=== PATIENT | female | born 1990 | race African-American/Black ===

== ENCOUNTER 2018-06-05 18:14 | Emergency (ER) | payer OTHER, SELFPAY ==
[2018-06-05] MEDS ORDERED: ONDANSETRON 4 MG (ODT) TAB ONE (19:00)
[2018-06-05 19:15] LABS: Absolute Lymphocytes (CBC) 2.7 K/uL (0.7-4.9); Absolute Monocytes 0.8 K/uL (0.1-1.3); Absolute Neutrophil 4.6 K/uL (1.8-8.0); Basophils % 0.8 % (0-1.3); Eosinophils % 2.3 % (0-4.4); Hematocrit 38.2 % (36.0-45.0); Lymphocytes % 32.7 % (15.3-44.8); MCH 20.5 pg (27.0-35.0); MCV 67.1 fL (80-100); MPV 8.6 fL (7.6-11.3); Monocytes % 9.5 % (3.3-12.3); RBC Red Blood Cell Count 5.69 M/uL (3.86-4.86)
[2018-06-05 19:23] LABS: ALT/SGPT 25 U/L (12-78); AST/SGOT 22 U/L (15-37); Albumin 3.2 g/dL (3.4-5.0); Alkaline Phosphatase 76 U/L (45-117); BUN Blood Urea Nitrogen 16 mg/dL (7-18); Bicarbonate 30 mmol/L (21-32); Bilirubin Direct 0.1 mg/dL (0-0.2); Bilirubin Total 0.3 mg/dL (0.2-1.0); Glucose Level 106 mg/dL (74-106); Lipase 97 U/L (73-393); Potassium 3.6 mmol/L (3.5-5.1); Protein, Total 7.5 g/dL (6.4-8.2); Sodium Level 142 mmol/L (136-145)
--- NOTE | 2018-06-05 20:01 | ER ---
Nurse's Notes [facility] Name: Rachel Mares Age: 28 yrs Sex: Female : 1990 Arrival Date: 06/05/2018 Time: 18:16 Bed 15 Private MD: None, None Diagnosis: Vomiting Presentation: 06/05 18:21 Presenting complaint: Patient states: "I think I'm dehydrated. I was throwing up all aj1 day since yesterday. I'm drinking lots of water but I feel like I'm not drinking enough water. My body is really sluggish." Report N/V, abdominal cramping. Denies diarrhea, fever. Transition of care: patient was not received from another setting of care. Onset of symptoms was June 04, 2018. Risk Assessment: Do you want to hurt yourself or someone else? Patient reports no desire to harm self or others. Initial Sepsis Screen: Does the patient meet any 2 criteria? No. Patient's initial sepsis screen is negative. Does the patient have a suspected source of infection? No. Patient's initial sepsis screen is negative. Care prior to arrival: None. 18:21 Method Of Arrival: Ambulatory aj1 18:21 Acuity: VIPIN 3 aj1 Triage Assessment: 18:24 General: Appears in no apparent distress. uncomfortable, Behavior is calm, cooperative, aj1 appropriate for age. Pain: Complains of pain in right lower quadrant and left lower quadrant Pain currently is 8 out of 10 on a pain scale. Quality of pain is described as crampy. Neuro: Level of Consciousness is awake, alert, obeys commands. Cardiovascular: Patient's skin is warm and dry. Respiratory: Airway is patent Respiratory effort is even, unlabored, Respiratory pattern is regular, symmetrical. GI: Reports nausea, vomiting. 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 - Social history:: Smoking status: Patient/guardian denies using tobacco. - Ebola Screening: : Patient denies travel to an Ebola-affected area in the 21 days before illness onset. Screenin:30 Abuse screen: Denies threats or abuse. Nutritional screening: vomiting since yesterday. rb1 Tuberculosis screening: No symptoms or risk factors identified. Fall Risk None identified. Assessment: 18:30 General: Appears in no apparent distress. comfortable, obese, Behavior is calm, rb1 cooperative, Denies fever, chills. Pain: Complains of pain in left lower quadrant and right lower quadrant Pain currently is 7 out of 10 on a pain scale. Quality of pain is described as crampy, Pain began 1 day ago. Discomfort is after the pt. vomits. Neuro: Level of Consciousness is awake, alert, obeys commands, Oriented to person, place, time, situation. Cardiovascular: Capillary refill < 3 seconds is brisk in bilateral fingers. Respiratory: Airway is patent Respiratory effort is even, unlabored, Respiratory pattern is regular, symmetrical. GI: Reports nausea, vomiting. : No signs and/or symptoms were reported regarding the genitourinary system. Derm: Skin is dry, Skin is normal, Skin temperature is warm. 19:00 Reassessment: Pt. labs were drawn and sent but the IV went bad while flushing it. rb1 Notified JAVIER Ventura and he stated, "We can wait for the lab results to come back before sticking the pt. again.". 19:04 Reassessment: Patient appears in no apparent distress at this time. No changes from lp1 previously documented assessment. Patient holding child;. 19:30 Reassessment: Patient aware of need for urine sample; States "I don't have to go, lp1 there's nothing in there"; Nausea relieved at this time; Patient tolerating water. Vital Signs: 18:24 BP 147 / 104; Pulse 106; Resp 22; Temp 97.6(TE); Pulse Ox 98% on R/A; Weight 145.15 kg aj1 (R); Height 5 ft. 2 in. (157.48 cm) (R); Pain 8/10; 19:52 BP 140 / 94; Pulse 92; Resp 18; Pulse Ox 100% on R/A; lp1 18:24 Body Mass Index 58.53 (145.15 kg, 157.48 cm) aj1 ED Course: 17:03 Report given to LOR Yun. rb1 18:16 Patient arrived in ED. sb2 18:17 None, None is Private Physician. sb2 18:24 Triage completed. aj1 18:24 Arm band placed on Patient placed in an exam room. aj1 18:27 Ariel Ventura NP is PHCP. pm1 18:27 Rocky Calle MD is Attending Physician. pm1 18:27 PHCP role handed off by Ariel Ventura NP cp 18:27 Norman Tatum PA is PHCP. cp 18:27 PHCP role handed off by Norman Tatum PA pm1 18:27 Ariel Ventura NP is PHCP. pm1 18:30 Patient has correct armband on for positive identification. Bed in low position. Call rb1 light in reach. Side rails up X 1. Pulse ox on. NIBP on. 18:53 Missed attempt(s): 22 gauge in right antecubital area. Bleeding controlled, band aid ss applied, catheter tip intact. 19:04 Court Mixon, RN is Primary Nurse. lp1 19:54 No provider procedures requiring assistance completed. Assist provider with bone marrow lp1 aspiration. 20:12 Patient did not have IV access during this emergency room visit. lp1 Administered Medications: 19:00 Drug: Zofran 4 mg Route: PO; rb1 20:11 Follow up: Response: Nausea is decreased lp1 19:02 Not Given (Provider changed order): Zofran 4 mg IVP once; over 2 minutes rb1 20:11 Not Given (No IV): NS 0.9% 1000 ml IV at 1000 ml once lp1 Outcome: 20:00 Discharge ordered by . pm1 20:12 Discharged to home ambulatory. lp1 20:12 Condition: good 20:12 Discharge instructions given to patient, Instructed on discharge instructions, follow up and referral plans. medication usage, Demonstrated understanding of instructions, follow-up care, medications, Prescriptions given X 2. 20:13 Patient left the ED. lp1 Signatures: Shaista Guevara RN RN aj1 Zo Ramos RN RN ss Court Mixon RN RN lp1 Norman Tatum PA PA cp Barber, Rebecca, RN RN rb1 Ariel Ventura, JAVIER BUSINESS CONTINUITY PLANNING DIRECTOR pm1 Montserrat Díaz sb2 Corrections: (The following items were deleted from the chart) 19:52 19:30 Reassessment: Patient aware of need for urine sample; States "I don't have to go, lp1 there's nothing in there" lp1
--- NOTE | 2018-06-05 20:01 | EDPHYS ---
Physician Documentation [facility] Name: Rachel Mares Age: 28 yrs Sex: Female : 1990 Arrival Date: 06/05/2018 Time: 18:16 Bed 15 Private MD: None, None ED Physician Rocky Calle HPI: 06/05 19:00 This 28 yrs old Black Female presents to ER via Ambulatory with complaints of pm1 Dehydration. 19:00 The patient presents to the emergency department with nausea, vomiting. Onset: The pm1 symptoms/episode began/occurred this morning. Possible causes: unknown. The symptoms are aggravated by nothing. The symptoms are alleviated by nothing. Associated signs and symptoms: Pertinent positives: Not certain if she has had diarrhea today, but had bowel movements x 2 today. Patient reports abdominal cramping present only when she is vomiting, other tripathi no abdominal pain is present, Pertinent negatives: dysuria, fever. Severity of symptoms: Pain is currently a 0 / 10. The patient has not recently seen a physician. 19:00 Patient feels like she is dehydrated because she has been having vomiting all day that pm1 started this AM. Patient uncertain if she has had diarrhea but has had two bowel movements today. No abdominal pain present. Abdominal cramping is only present when she is actively vomiting. No fevers. 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 - Social history:: Smoking status: Patient/guardian denies using tobacco. - Ebola Screening: : Patient denies travel to an Ebola-affected area in the 21 days before illness onset. ROS: 19:00 Constitutional: Negative for fever, chills, and weight loss, Eyes: Negative for injury, pm1 pain, redness, and discharge, ENT: Negative for injury, pain, and discharge, Neck: Negative for injury, pain, and swelling, Cardiovascular: Negative for chest pain, palpitations, and edema, Respiratory: Negative for shortness of breath, cough, wheezing, and pleuritic chest pain. 19:00 Back: Negative for injury and pain, : Negative for injury, bleeding, discharge, and swelling, MS/Extremity: Negative for injury and deformity, Skin: Negative for injury, rash, and discoloration, Neuro: Negative for headache, weakness, numbness, tingling, and seizure. 19:00 Abdomen/GI: Positive for nausea, vomiting, Abdominal cramps when she is vomiting, Negative for diarrhea, hematemesis, rectal bleeding. Exam: 19:00 Constitutional: This is a well developed, well nourished patient who is awake, alert, pm1 and in no acute distress. Head/Face: Normocephalic, atraumatic. Eyes: Pupils equal round and reactive to light, extra-ocular motions intact. Lids and lashes normal. Conjunctiva and sclera are non-icteric and not injected. Cornea within normal limits. Periorbital areas with no swelling, redness, or edema. ENT: Nares patent. No nasal discharge, no septal abnormalities noted. Tympanic membranes are normal and external auditory canals are clear. Oropharynx with no redness, swelling, or masses, exudates, or evidence of obstruction, uvula midline. Mucous membranes moist. Neck: Trachea midline, no thyromegaly or masses palpated, and no cervical lymphadenopathy. Supple, full range of motion without nuchal rigidity, or vertebral point tenderness. No Meningismus. Chest/axilla: Normal chest wall appearance and motion. Nontender with no deformity. No lesions are appreciated. Cardiovascular: Regular rate and rhythm with a normal S1 and S2. No gallops, murmurs, or rubs. Normal PMI, no JVD. No pulse deficits. Respiratory: Lungs have equal breath sounds bilaterally, clear to auscultation and percussion. No rales, rhonchi or wheezes noted. No increased work of breathing, no retractions or nasal flaring. 19:00 Back: No spinal tenderness. No costovertebral tenderness. Full range of motion. Skin: Warm, dry with normal turgor. Normal color with no rashes, no lesions, and no evidence of cellulitis. MS/ Extremity: Pulses equal, no cyanosis. Neurovascular intact. Full, normal range of motion. 19:00 Abdomen/GI: Inspection: abdomen appears normal, obese Bowel sounds: normal, Palpation: abdomen is soft and non-tender, in all quadrants, mass, is not appreciated, rebound tenderness, is not appreciated. 19:00 Neuro: Orientation: is normal, Motor: is normal, moves all fours, Gait: is steady, at a normal pace, without difficulty. Vital Signs: 18:24 BP 147 / 104; Pulse 106; Resp 22; Temp 97.6(TE); Pulse Ox 98% on R/A; Weight 145.15 kg aj1 (R); Height 5 ft. 2 in. (157.48 cm) (R); Pain 8/10; 19:52 BP 140 / 94; Pulse 92; Resp 18; Pulse Ox 100% on R/A; lp1 18:24 Body Mass Index 58.53 (145.15 kg, 157.48 cm) aj1 MDM: 18:27 Patient medically screened. pm1 19:59 Data reviewed: vital signs. Data interpreted: Pulse oximetry: on room air is 100 %. pm1 Interpretation: normal. Counseling: I had a detailed discussion with the patient and/or guardian regarding: the historical points, exam findings, and any diagnostic results supporting the discharge/admit diagnosis, lab results, the need for outpatient follow up, to return to the emergency department if symptoms worsen or persist or if there are any questions or concerns that arise at home. 19:59 Differential diagnosis: gastritis, cholecystitis, pancreatitis, appendicitis, pm1 diverticulitis, viral gastroenteritis. 20:15 ED course: Patient's labs WNL. Patient pain free throughout ER visit. Patient's nausea pm1 resolved with Zofran and was able to tolerate multiple cups of water without any vomiting. Patient discharged to follow up with PCP with impression of viral gastroenteritis . 06/05 18:34 Order name: Basic Metabolic Panel; Complete Time: 19:31 pm06/05 18:34 Order name: CBC with Diff; Complete Time: 19:42 pm06/05 18:34 Order name: Hepatic Function; Complete Time: 19:31 pm06/05 18:34 Order name: Lipase; Complete Time: 19:31 pm06/05 20:01 Order name: Urine Dipstick--Ancillary (enter results); Complete Time: 20:18 eb 06/05 18:34 Order name: Urine Test (obtain specimen); Complete Time: 20:11 pm06/05 18:34 Order name: Labs collected and sent; Complete Time: 18:54 pm1 06/05 18:34 Order name: Urine Dipstick-Ancillary (obtain specimen); Complete Time: 20:11 pm1 06/05 20:01 Order name: Urine --Ancillary (enter results); Complete Time: 20:18 eb Administered Medications: 19:00 Drug: Zofran 4 mg Route: PO; rb1 20:11 Follow up: Response: Nausea is decreased lp1 19:02 Not Given (Provider changed order): Zofran 4 mg IVP once; over 2 minutes rb1 20:11 Not Given (No IV): NS 0.9% 1000 ml IV at 1000 ml once lp1 Disposition: 06/05/18 20:00 Discharged to Home. Impression: Vomiting. - Condition is Stable. - Discharge Instructions: Nausea and Vomiting, Viral Gastroenteritis. - Prescriptions for Zofran 4 mg Oral Tablet - take 1 tablet by ORAL route every 12 hours As needed; 20 tablet. Bentyl 20 mg Oral Tablet - take 1 tablet by ORAL route every 6 hours As needed; 20 tablet. - Work release form, Medication Reconciliation Form, Thank You Letter form. - Follow up: Emergency Department; When: As needed; Reason: Worsening of condition. Follow up: Private Physician; When: 2 - 3 days; Reason: Recheck today's complaints, Continuance of care, Re-evaluation by your physician. - Problem is new. - Symptoms have improved. Addendum: 06/06/2018 20:25 Co-signature as Attending Physician, Rocky Calle MD. m a2 Signatures: Dispatcher [employer] [facility] Shaista Guevara RN RN aj1 Court Mixon RN RN lp1 Martha Milner, RN RN rb1 Ariel Ventura, TRAVELING AUDITOR TRAVELING AUDITOR pm1 Rocky Calle MD MD ma2 Corrections: (The following items were deleted from the chart) 06/05 20:01 18:34 UA MICROSCOPIC+U.LAB.BRZ ordered. EDOH EDOH 20:11 18:34 IV Saline Lock ordered. pm1 lp1 20:13 20:00 06/05/2018 20:00 Discharged to Home. Impression: Vomiting. Condition is Stable. lp1 Forms are Medication Reconciliation Form, Thank You Letter, Antibiotic Education, Prescription Opioid Use. Follow up: Emergency Department; When: As needed; Reason: Worsening of condition. Follow up: Private Physician; When: 2 - 3 days; Reason: Recheck today's complaints, Continuance of care, Re-evaluation by your physician. Problem is new. Symptoms have improved. pm1
[2018-06-05 20:08] LABS: Urine Blood 2+ (NEG); Urine Glucose NEGATIVE (NEG); Urine Protein 2+ (NEG); Urine Specific Gravity 1.025 (1.005-1.030); Urine pH 6.5 (5.0-7.0)
[2018-06-05 20:16] VITALS: TEMP 97.6
[2018-06-05 20:18] VITALS: BP 140/94; O2SAT 100
== END 2018-06-05 20:13 | disposition home or self-care (01) ==
LOC: ER 18:14
DX: R11.10 Vomiting, unspecified (principal)
CPT/HCPCS: 36415; 80048; 80076; 81003; 81025; 83690; 85025; 99284

== ENCOUNTER 2019-02-20 06:21 | Emergency (ER) | payer SELFPAY ==
--- OUTSIDE RECORDS SUMMARY | 2019-02-20 06:24 | XMS REPORT | Continuity of Care Document ---
:1990 Author Organization Interface Problems Problem Status Onset Classification Date Comments Source Date Reported Discharge 02/04/2017 [facility] Diagnosis: BV 7 ABDOMINAL PAIN Active [facility] - 7 [place] Discharge 01/19/2017 [facility] Diagnosis: 7 Accidental fall Discharge 01/19/2017 [facility] Diagnosis: 7 Abdominal pain during in first trimester 8 WKS Active [facility] PREG/FALL 7 Discharge 12/20/2016 [facility] Diagnosis: 7 Abdominal pain affecting Discharge 12/20/2016 [facility] Diagnosis: 7 Acute UTI PELVIC PAIN Active [facility] 7 [place] Medications Medication Details Route Status Patient Ordering Order Source Instructions Provider Date Tylenol 650 mg, Route: Inactive PO, Drug form: 2016 [place] TAB, ONCE, Dosing Weight 131.364, kg, Priority: STAT, Start date: 02/01/17 23:06:00 CDT, Stop date: 02/01/17 23:06:00 CDT Metronidazole 500 mg=1 tab, Active 500 MG Oral PO, BID, X 7 2016 [place] Tablet [Flagyl] day, # 14 tab, 0 Refill(s) Acetaminophen 650 mg, 2 tab, Inactive Route: PO, 2016 [place] Drug form: TAB, ONCE, Dosing Weight 127.273, kg, Priority: STAT, Start date: 02/01/17 17:18:00 CDT, Stop date: 02/01/17 17:18:00 CDTNotes: Do not exceed 4 gm/day. (Same as: Tylenol) Saline Flush 10 mL, Route: No Longer 0.9% IVP, Drug Active 2016 [place] Form: INJ, Dosing Weight 127.273, kg, PRN, PRN Line Flush, Start date: 02/01/17 17:18:00 CDT, Duration: 30 day, Stop date: 03/03/17 17:17:00 CDTNotes: (Same as: BD Posiflush) Saline Flush 10 mL, Route: Inactive 0.9% IVP, Drug 2016 [place] Form: INJ, Dosing Weight 127.273, kg, PRN, PRN Line Flush, Start date: 01/16/17 10:51:00 HOLE PUNCHER STRAP, Duration: 30 day, Stop date: 02/15/17 11:50:00 CDTNotes: preservative free. Cephalexin 500 500 mg=1 cap, Active MH MG Oral Capsule PO, BID, X 7 2016 [place] [Keflex] , # 14 cap, 0 Refill(s) Sodium Chloride 1,000 mL, Inactive 0.154 MEQ/ML 1,000 ml/hr, 2016 [place] Injectable Infuse Over: 1 Solution hr, Route: IV, 1,000, Drug form: INJ, ONCE, Priority: STAT, Dosing Weight 136.364 kg, Start date: 12/17/16 4:37:00 HOLE PUNCHER STRAP, Duration: 1 doses or times, Stop date: 12/17/16 4:37:00 HOLE PUNCHER STRAP Sodium Chloride 1,000 mL, Inactive 0.154 MEQ/ML 1,000 ml/hr, 2016 [place] Injectable Infuse Over: 1 Solution hr, Route: IV, 1,000, Drug form: INJ, ONCE, Priority: STAT, Dosing Weight 136.364 kg, Start date: 12/17/16 2:27:00 HOLE PUNCHER STRAP, Duration: 1 doses or times, Stop date: 12/17/16 2:27:00 HOLE PUNCHER STRAP Allergies, Adverse Reactions, Alerts Substance Category Reaction Severity Reaction Status Date Comments Source type Reported Immunizations Immunization Date Given Site Status Last Updated Comments Source Results Order Name Results Value Reference Date Interpretation Comments Source Range MOLECULAR N gonorrhea Negative Negative 02/02 DIAGNOSTIC by Amp Det /2016 [place] (APTIMA) *NA* (02/01/17 9:57 PM) MOLECULAR Source Endocervix 02/02 DIAGNOSTIC [place]TIMA /2016 [place] *NA* (02/01/17 9:57 PM) MOLECULAR C Negative Negative 02/02 DIAGNOSTIC trachomatis [place] by [facility]mp Det *NA* (APTIMA) (02/01/17 9:57 PM) [place] [address] 02/02 OGY mIU/mL [place] URINE AND UA Blood Negative Negative 02/02 STOOL [place] (02/01/17 8:01 PM) URINE AND UA Ketones Negative Negative 02/02 [place] *NA* (02/01/17 8:01 PM) URINE AND UA Bili Negative Negative 02/02 STOOL [place] *NA* (02/01/17 8:01 PM) URINE AND UA 0.2 EU/dL 0.1 - 1.0 02/02 STOOL Urobilinogen [place] URINE AND UA Nitrite Negative Negative 02/02 STOOL [place] (02/01/17 8:01 PM) URINE AND UA Sq Epi Few /LPF Few /LPF 02/02 [place] URINE AND UA Leuk Est Negative Negative 02/02 STOOL [place] (02/01/17 8:01 PM) URINE AND UA Bacteria Few /HPF None Seen 02/02 STOOL /HPF [place] URINE AND UA RBC 0-2 /HPF 0 - 2 02/02 [place] URINE AND UA Glucose Negative Negative 02/02 STOOL [place] (02/01/17 8:01 PM) URINE AND UA Protein Negative Negative 02/02 STOOL [place] (02/01/17 8:01 PM) URINE AND UA pH 6.0 5.0 - 8.0 02/02 [place] URINE AND UA Spec Grav >=1.030 <=1.030 02/02 [place] *ABN* (02/01/17 8:01 PM) URINE AND UA Turbidity Clear Clear 02/02 [place] (02/01/17 8:01 PM) URINE AND UA Color Yellow Yellow 02/02 STOOL [place] *NA* (02/01/17 8:01 PM) URINE AND UA WBC 0-2 /HPF None Seen 02/02 STOOL /HPF [place] CHEM PANEL eGFR 139 02/01 Result Comment: The eGFR is calculated using the CKD-EPI formula. In most young, healthy individuals the eGFR will be >90 mL/ min/1.73m2. The eGFR declines with age. An eGFR of 60-89 may be normal in mL/min/1.7 /2016 some populations, particularly the elderly, for whom the CKD-EPI formula has not been extensively validated. Use of the eGFR is not recommended in the following populations: [place] 3m2 Individuals with unstable creatinine concentrations, including patients and those with serious co-morbid conditions. Patients with extremes in muscle mass or diet. The data above are obtained from the National Kidney Disease Education Program (NKDEP) which additionally recommends that when the eGFR is used in patients with extremes of body mass index for purposes of drug dosing, the eGFR should be multiplied by the estimated BMI. CHEM PANEL Glucose Lvl 107 mg/dL 70 - 99 02/01 [place] CHEM PANEL Sodium Lvl 138 meq/L 135 - 145 02/01 [place] CHEM PANEL BUN 16 mg/dL 7 - 22 02/01 [place] CHEM PANEL Creatinine 0.70 mg/dL 0.50 - 02/01 MH Lvl 1.40 [place] CHEM PANEL Calcium Lvl 7.9 mg/dL 8.5 - 10.5 02/01 [place] CHEM PANEL Chloride Lvl 106 meq/L 95 - 109 02/01 [place] CHEM PANEL CO2 22 meq/L 24 - 32 02/01 [place] CHEM PANEL Potassium 4.3 meq/L 3.5 - 5.1 02/01 Lvl [place] CHEM PANEL AGAP 14.3 meq/L 10.0 - 02/01 MH 20.0 [place] BLOOD BANK ABO/Rh A POS 02/01 RESULTS [place] HEMATOLOGY Monocytes # 0.8 K/CMM 0.0 - 0.8 02/01 [place] HEMATOLOGY Lymphocytes 3.5 K/CMM 1.0 - 5.5 02/01 # [place] HEMATOLOGY Eosinophils 0.1 K/CMM 0.0 - 0.5 02/01 # [place] HEMATOLOGY Basophils # 0.1 K/CMM 0.0 - 0.2 02/01 [place] HEMATOLOGY Microcyte 3+ None Seen 02/01 [place] *NA* (02/01/17 6:02 PM) HEMATOLOGY Anisocyte 1+ None Seen 02/01 [place] *ABN* (02/01/17 6:02 PM) HEMATOLOGY Plt Morph Normal 02/01 [place] (02/01/17 6:02 PM) HEMATOLOGY Segs 62.3 % 45.0 - 02/01 MH 75.0 [place] HEMATOLOGY Eosinophils 1.1 % 0.0 - 4.0 02/01 [place] HEMATOLOGY Basophils 0.5 % 0.0 - 1.0 02/01 [place] HEMATOLOGY Monocytes 6.9 % 2.0 - 12.0 02/01 [place] HEMATOLOGY Lymphocytes 29.2 % 20.0 - 02/01 MH 40.0 [place] HEMATOLOGY Segs-Bands # 7.5 K/CMM 1.5 - 8.1 02/01 [place] HEMATOLOGY Platelet 297 K/CMM 133 - 450 02/01 [place] HEMATOLOGY RDW 15.7 % 11.5 - 02/01 MH 14.5 [place] HEMATOLOGY MCHC 31.4 g/dL 32.0 - 02/01 MH 36.0 [place] HEMATOLOGY MCV 65.4 fL 80.0 - 02/01 MH 98.0 [place] HEMATOLOGY MCH 20.5 pg 27.0 - 02/01 MH 31.0 [place] HEMATOLOGY Hct 38.7 % 36.0 - 02/01 MH 48.0 [place] HEMATOLOGY Hgb 12.1 g/dL 12.0 - 02/01 MH 16.0 [place] HEMATOLOGY WBC X 10x3 12.0 K/CMM 3.7 - 10.4 02/01 [place] HEMATOLOGY RBC X 10x6 5.91 M/CMM 4.20 - 02/01 MH 5.40 [place] HEMATOLOGY MPV 8.0 fL 7.4 - 10.4 02/01 [place] < Study: Pelvic ultrasound 02/01 [facility] < 14 weeks 14 weeks /2016 - [place] single single gestation gestation US US History: Cramping Read by: Vanesa Mary MD Dictated Date/time: 02/01/17 19:27 Electronically Signed by: Vanesa Mary MD 02/01/17 19:42 FINAL REPORT Comments: Transabdominal OB ultrasound was obtained utilizing real-time grayscale and color Doppler images. [<Transvaginal OB ultrasound was also performed for better visualization of anatomy.>] Uterus: A single intrauterine gestational sac is seen. pole and yolk sac are seen. heartrate is 185 bpm crown-rump length is 5 mm Right ovary: Not visualized due to overlying bowel gas Left ovary: Normal in size and appearance measuring 3.8 x 2.6 x 2.4 cm. IMPRESSION: Single live IUP with sonographic age of 12 weeks 0 days BLOOD BANK ABO/Rh A POS 01/16 RESULTS [facility] ENDOCRINOL S Preg Positive Negative 01/16 OGY /2016 [facility] *NA* (01/16/17 11:02 AM) [place] 63371 01/16 OGY mIU/mL /2016 [facility] MPV 7.8 fL 7.4 - 10.4 01/16 [facility] Hgb 11.9 g/dL 12.0 - 01/16 16.0 [facility] Hct 38.2 % 36.0 - 01/16 48.0 [facility] MCHC 31.1 g/dL 32.0 - 01/16 36.0 [facility] HEMATOLOGY RBC 5.86 M/CMM 4.20 - 01/16 MH 5.40 /2016 [facility] HEMATOLOGY WBC 13.9 K/CMM 3.7 - 10.4 01/16 /2016 [facility] HEMATOLOGY MCV 65.2 fL 80.0 - 01/16 98.0 /2016 [facility] HEMATOLOGY MCH 20.3 pg 27.0 - 01/16 31.0 [facility] Platelet 282 K/CMM 133 - 450 01/16 /2016 [facility] RDW 16.3 % 11.5 - 01/16 14.5 /2016 [facility] HEMATOLOGY Segs 67.8 % 45.0 - 01/16 75.0 /2016 [facility] Lymphocytes 23.8 % 20.0 - 01/16 40.0 /2016 [facility] HEMATOLOGY Monocytes # 1.0 K/CMM 0.0 - 0.8 01/16 [facility] HEMATOLOGY Eosinophils 0.4 % 0.0 - 4.0 01/16 [facility] HEMATOLOGY Monocytes 7.5 % 2.0 - 12.0 01/16 [facility] Segs-Bands # 9.5 K/CMM 1.5 - 8.1 01/16 [facility] Lymphocytes 3.3 K/CMM 1.0 - 5.5 01/16 MH # /2016 [place] HEMATOLOGY Basophils 0.5 % 0.0 - 1.0 01/16 [facility] HEMATOLOGY Eosinophils 0.1 K/CMM 0.0 - 0.5 01/16 # /2016 [facility] HEMATOLOGY Basophils # 0.1 K/CMM 0.0 - 0.2 01/16 [facility] HEMATOLOGY Microcyte 3+ None Seen 01/16 [facility] *NA* (01/16/17 11:02 AM) URINE AND UA Nitrite Negative Negative 01/16 (01/16/17 11:02 AM) URINE AND UA Bili Negative Negative 01/16 [facility] *NA* (01/16/17 11:02 AM) URINE AND UA Leuk Est Negative Negative 01/16 (01/16/17 11:02 AM) URINE AND UA Blood Negative Negative 01/16 [facility] (01/16/17 11:02 AM) URINE AND UA Sq Epi Occasional Few /LPF 01/16 STOOL /LPF [facility] URINE AND UA Color Colorless 01/16 [facility] URINE AND UA <=1.0 0.1 - 1.0 01/16 STOOL Urobilinogen mg/dL [facility] URINE AND UA Spec Grav 1.001 <=1.030 01/16 [facility] URINE AND UA Turbidity Clear Clear 01/16 [facility] (01/16/17 11:02 AM) URINE AND UA pH 6.0 5.0 - 8.0 01/16 [facility] URINE AND UA Glucose Negative Negative 01/16 STOOL mg/dL mg/dL [facility] URINE AND UA Protein Negative Negative 01/16 STOOL mg/dL mg/dL [facility] URINE AND UA Ketones Negative Negative 01/16 STOOL mg/dL mg/dL [facility] Preg < Preg < 14wks EXAM: Ultrasound pelvis less than 14 weeks with Doppler 01/16 - 14wks sing sing gest w - gest w transvag/Dop HISTORY: , abdominal trauma, fall transvag/D US op US COMPARISON: None Read by: Eyal Pineda MD Dictated Date/time: 01/16/17 11:59 TECHNIQUE: Transabdominal and transvaginal pelvic ultrasound, grayscale static images with duplex Doppler of the ovaries. Electronically Signed by: Eyal Pineda MD 01/16/17 12:04 FINAL REPORT FINDINGS: Transabdominal ultrasound: Uterus: Measures 11.5 cm length. Intrauterine . Ovaries not visualized. Bladder underdistended. Transvaginal ultrasound exam performed to better evaluate the endometrium and adnexa: Uterus: Intrauterine gestational sac, yolk sac and pole are seen with gestational age 10 weeks 0 days by crown-rump length. Heart rate 183 bpm. Cervix: Measures 2.2 cm length. Adnexa: Corpus luteum in the left ovary. Right ovary is unremarkable. No significant free fluid. Color and spectral flow in both ovaries. IMPRESSION: Single viable intrauterine with gestational age 10 weeks 0 days. SL: [id number] MOLECULAR Source Vaginal 12/17 DIAGNOSTIC [place] *NA* (12/17/16 3:12 AM) MOLECULAR C Negative Negative 12/17 DIAGNOSTIC trachomatis [place] by Amp Det *NA* (APTIMA) (12/17/16 3:12 AM) MOLECULAR N gonorrhea Negative Negative 12/17 DIAGNOSTIC by Amp Det /2016 [place] ([facility]TIMA) *NA* (12/17/16 3:12 AM) BLOOD BANK ABO/Rh A POS 12/17 RESULTS [place] CHEM PANEL eGFR 106 12/17 Result Comment: The eGFR is calculated using the CKD-EPI formula. In most young, healthy individuals the eGFR will be >90 mL/ min/1.73m2. The eGFR declines with age. An eGFR of 60-89 may be normal in mL/min/1.7 some populations, particularly the elderly, for whom the CKD-EPI formula has not been extensively validated. Use of the eGFR is not recommended in the following populations: [place] 3m2 Individuals with unstable creatinine concentrations, including patients and those with serious co-morbid conditions. Patients with extremes in muscle mass or diet. The data above are obtained from the National Kidney Disease Education Program (NKDEP) which additionally recommends that when the eGFR is used in patients with extremes of body mass index for purposes of drug dosing, the eGFR should be multiplied by the estimated BMI. CHEM PANEL ASPARTATE 14 unit/L 0 - 37 12/17 TRANSAMINASE [place] CHEM PANEL Total 7.3 g/dL 6.4 - 8.4 12/17 Protein [place] CHEM PANEL Calcium Lvl 8.4 mg/dL 8.5 - 10.5 12/17 [place] CHEM PANEL CO2 29 meq/L 24 - 32 12/17 [place] CHEM PANEL Chloride Lvl 105 meq/L 95 - 109 12/17 [place] CHEM PANEL Alk Phos 60 unit/L 39 - 136 12/17 [place] CHEM PANEL ALANINE 20 unit/L 0 - 65 12/17 AMINOTRANS [place] RASE CHEM PANEL Albumin Lvl 3.1 g/dL 3.5 - 5.0 12/17 [place] CHEM PANEL Creatinine 0.87 mg/dL 0.50 - 12/17 MH Lvl 1.40 [place] CHEM PANEL BUN 17 mg/dL 7 - 22 12/17 [place] CHEM PANEL Glucose Lvl 95 mg/dL 70 - 99 12/17 [place] CHEM PANEL Bili Total 0.2 mg/dL 0.2 - 1.3 12/17 [place] CHEM PANEL Potassium 3.8 meq/L 3.5 - 5.1 12/17 MH Lvl [place] CHEM PANEL Sodium Lvl 142 meq/L 135 - 145 12/17 [place] CHEM PANEL A/G Ratio 0.7 0.7 - 1.6 12/17 [place] CHEM PANEL B/C Ratio 20 6 - 25 12/17 [place] CHEM PANEL AGAP 11.8 meq/L 10.0 - 12/17 MH 20.0 [place] CHEM PANEL Globulin 4.2 g/dL 2.7 - 4.2 12/17 [place] ENDOCRINOL hCG Tot 3316 12/17 OGY mIU/mL [place] HEMATOLOGY Target Cell few 12/17 [place] HEMATOLOGY Hyperseg few 12/17 [place] HEMATOLOGY Polychrom rare 12/17 [place] HEMATOLOGY Stomatocyte few 12/17 [place] HEMATOLOGY Eosinophils 0.9 % 0.0 - 4.0 12/17 [place] HEMATOLOGY Basophils 0.6 % 0.0 - 1.0 12/17 [place] HEMATOLOGY Segs-Bands # 6.8 K/CMM 1.5 - 8.1 12/17 [place] HEMATOLOGY Lymphocytes 34.8 % 20.0 - 12/17 MH 40.0 [place] HEMATOLOGY Monocytes 8.2 % 2.0 - 12.0 12/17 [place] HEMATOLOGY Eosinophils 0.1 K/CMM 0.0 - 0.5 12/17 # /2016 [place] HEMATOLOGY Basophils # 0.1 K/CMM 0.0 - 0.2 12/17 [place] HEMATOLOGY Microcyte 3+ None Seen 12/17 [place] *NA* (12/17/16 3:01 AM) HEMATOLOGY Lymphocytes 4.3 K/CMM 1.0 - 5.5 12/17 # /2016 [place] HEMATOLOGY Monocytes # 1.0 K/CMM 0.0 - 0.8 12/17 [place] HEMATOLOGY Segs 55.5 % 45.0 - 12/17 MH 75.0 [place] HEMATOLOGY MPV 8.2 fL 7.4 - 10.4 12/17 [place] HEMATOLOGY Platelet 267 K/CMM 133 - 450 12/17 [place] HEMATOLOGY Hgb 12.1 g/dL 12.0 - 12/17 MH 16.0 [place] HEMATOLOGY RBC X 10x6 5.95 M/CMM 4.20 - 12/17 MH 5.40 [place] HEMATOLOGY WBC X 10x3 12.2 K/CMM 3.7 - 10.4 12/17 [place] HEMATOLOGY RDW 16.2 % 11.5 - 12/17 MH 14.5 [place] HEMATOLOGY MCHC 30.9 g/dL 32.0 - 12/17 MH 36.0 [place] HEMATOLOGY MCH 20.3 pg 27.0 - 12/17 MH 31.0 [place] HEMATOLOGY MCV 65.8 fL 80.0 - 12/17 MH 98.0 [place] HEMATOLOGY Hct 39.1 % 36.0 - 12/17 MH 48.0 [place] URINE AND UA Mucus None Seen None Seen 12/17 STOOL [place] (12/17/16 3:01 AM) URINE AND UA Bacteria Occasional None Seen 12/17 STOOL /HPF /HPF /2016 [place] URINE AND UA Leuk Est Negative Negative 12/17 STOOL [place] (12/17/16 3:01 AM) URINE AND UA Sq Epi Occasional Few /LPF 12/17 STOOL /LPF /2016 [place] URINE AND UA Nitrite Negative Negative 12/17 [place] (12/17/16 3:01 AM) URINE AND UA WBC 0-2 /HPF None Seen 12/17 STOOL /HPF [place] URINE AND UA RBC 0-2 /HPF 0 - 2 12/17 [place] URINE AND UA Color Yellow Yellow 12/17 [place] *NA* (12/17/16 3:01 AM) URINE AND UA Turbidity Clear Clear 12/17 [place] (12/17/16 3:01 AM) URINE AND UA 0.2 EU/dL 0.1 - 1.0 12/17 [facility] Urobilinogen [place] URINE AND UA Blood Negative Negative 12/17 [place] (12/17/16 3:01 AM) URINE AND UA Bili Negative Negative 12/17 [place] *NA* (12/17/16 3:01 AM) URINE AND UA pH 6.0 5.0 - 8.0 12/17 [place] URINE AND UA Protein Negative Negative 12/17 [place] (12/17/16 3:01 AM) URINE AND UA Spec Grav >=1.030 <=1.030 12/17 [place] *ABN* (12/17/16 3:01 AM) URINE AND UA Ketones Trace Negative 12/17 [place] *ABN* (12/17/16 3:01 AM) URINE AND UA Glucose Negative Negative 12/17 [place] (12/17/16 3:01 AM) URINE CHEM U Preg Positive Negative 12/17 [place] *ABN* (12/17/16 3:01 AM) Preg < Preg < 14wks OBSTETRIC 1ST TRIMESTER ULTRASOUND 12/17 - [facility] 14wks Single gest /2016 - [place] Single w Transvag gest w US Transvag INDICATION: Pelvic pain Read by: Louis Currie MD [place] Dictated Date/time: 12/17/16 04:57 Electronically Signed by: Louis Currie MD 12/17/16 05:00 FINAL REPORT COMPARISON: None DISCUSSION: Current beta hCG level is approximately 3300. Transabdominal pelvic ultrasound: The uterus measures 7.8 x 5.5 x 5.9 cm. The cervix is closed. No fibroids are identified. Transvaginal pelvic ultrasound: A gestational sac is present within the endometrial cavity, with a mean sac diameter of 0.7 cm. There is no yolk sac or pole. The right ovary is normal in echogenicity and measures 3.2 x 1.4 x 2.2 cm. The left ovary measures 3.7 x 3.0 x 3.4 cm. There is a 2 cm simple corpus luteal cyst of the left ovary. Trace free fluid is noted in the cul-de-sac and left adnexal region. IMPRESSION: 1. Positive for single intrauterine , with estimated gestational age of 5 weeks 2 days. No yolk sac or pole are visible at this time. 2. A 2 cm simple left corpus luteal cyst. Trace pelvic free fluid suggests possible cyst rupture. SL:16 Vital Signs Vital Sign Value Date Comments Source Respitory Rate 18 02/02/2017 [facility] Heart Rate 95 02/02/2017 [facility] Systolic (mm Hg) 100 02/02/2017 [facility] Diastolic (mm Hg) 64 02/02/2017 [facility] Respitory Rate 18 02/02/2017 [facility] Heart Rate 88 02/02/2017 [facility] Systolic (mm Hg) 107 02/02/2017 [facility] Diastolic (mm Hg) 63 02/02/2017 [facility] Weight 131.364 02/01/2017 [facility] Respitory Rate 16 02/01/2017 [facility] Temperature Oral (F) 98.6 F 02/01/2017 [facility] Systolic (mm Hg) 115 02/01/2017 [facility] Diastolic (mm Hg) 74 02/01/2017 [facility] Heart Rate 128 02/01/2017 [facility] Respitory Rate 16 01/16/2017 [facility] Systolic (mm Hg) 120 01/16/2017 [facility] Diastolic (mm Hg) 86 01/16/2017 [facility] Temperature Oral (F) 97.6 F 01/16/2017 [facility] Heart Rate 91 01/16/2017 [facility] Respitory Rate 18 01/16/2017 [facility] Heart Rate 99 01/16/2017 [facility] Temperature Oral (F) 98.0 F 01/16/2017 [facility] Height 157.48 cm 01/16/2017 [facility] BMI Calculated 51.32 01/16/2017 [facility] Weight 127.273 01/16/2017 [facility] Systolic (mm Hg) 136 01/16/2017 [facility] Diastolic (mm Hg) 86 01/16/2017 [facility] Systolic (mm Hg) 112 12/17/2016 [facility] Diastolic (mm Hg) 68 12/17/2016 [facility] Respitory Rate 18 12/17/2016 [facility] Temperature Oral (F) 98.1 F 12/17/2016 [facility] Heart Rate 88 12/17/2016 [facility] Weight 136.364 12/17/2016 [facility] BMI Calculated 54.99 12/17/2016 [facility] Height 157.48 cm 12/17/2016 [facility] Temperature Oral (F) 98.2 F 12/17/2016 [facility] Systolic (mm Hg) 110 12/17/2016 [facility] Diastolic (mm Hg) 69 12/17/2016 [facility] Heart Rate 107 12/17/2016 [facility] Respitory Rate 20 12/17/2016 [facility] Encounters Location Location Encounter Encounter Reason Attending ADM DC Status Source Details Type Number For Provider Date Date [facility] [id number] [facility] Mcdonald 12/17 12/17 Rashaun /2016 [facility] Emergency [id number] [place] 01/16 01/16 Rashaun Leon /2016 [facility] Emergency [id number] [place] 02/01 02/02 Rashaun Fox /[address] [facility] Procedures Procedure Code Date Perfomer Comments Source
--- OUTSIDE RECORDS SUMMARY | 2019-02-20 06:24 | XMS REPORT | Summary of Care ---
:1990 Author Organization [facility] Address [id number] [place] [phone]- Encounter HQ Denisr_delicia(FIN) [id number] Date(s): 12/17/16 - 12/17/[address] [phone] Discharge Diagnosis: Abdominal pain affecting Discharge Diagnosis: Acute UTI Discharge Disposition: Home or Self Care Attending Physician: Campbell Mcdonald MD Vital Signs Most recent to oldest [Reference Range]: 1 2 Height 157.48 cm (12/17/16 12:21 AM) Temperature Oral [96.4-99.1 DegF] 98.1 DegF 98.2 DegF (12/17/16 5:46 AM) (12/17/16 12:21 AM) Blood Pressure [90-140/60-90 mmHg] 112/68 mmHg 110/69 mmHg (12/17/16 5:46 AM) (12/17/16 12:21 AM) Respiratory Rate [14-20 BRMIN] 18 BRMIN 20 BRMIN (12/17/16 5:46 AM) (12/17/16 12:21 AM) Peripheral Pulse Rate [60-100 bpm] 88 bpm 107 bpm (12/17/16 5:46 AM) *HI* (12/17/16 12:21 AM) Weight 136.364 kg (12/17/16 12:21 AM) Body Mass Index 54.99 m2 (12/17/16 12:21 AM) Problem List No data available for this section Allergies, Adverse Reactions, Alerts Substance Reaction Severity Status NKDA Active Medications Keflex 500 mg oral capsule 500 mg=1 cap, PO, BID, X 7 day, # 14 cap, 0 Refill(s) Start Date: 12/17/16 Stop Date: 12/24/16 Status: OrderedNS (Bolus) IV 1,000 mL, 1,000 ml/hr, Infuse Over: 1 hr, Route: IV, 1,000, Drug form: INJ, ONCE , Priority: STAT, Dosing Weight 136.364 kg, Start date: 12/17/16 2:27:00 SOIL CHEMIST, Duration: 1 doses or times, Stop date: 12/17/16 2:27:00 SOIL CHEMIST Start Date: 12/17/16 Stop Date: 12/17/16 Status: CompletedSodium Chloride 0.9% (Bolus) IV 1,000 mL, 1,000 ml/hr, Infuse Over: 1 hr, Route: IV, 1,000, Drug form: INJ, ONCE , Priority: STAT, Dosing Weight 136.364 kg, Start date: 12/17/16 4:37:00 SOIL CHEMIST, Duration: 1 doses or times, Stop date: 12/17/16 4:37:00 SOIL CHEMIST Start Date: 12/17/16 Stop Date: 12/17/16 Status: Completed Results BLOOD BANK RESULTS Most recent to oldest [Reference Range]: 1 ABO/Rh A POS *Unknown* (12/17/16 3:01 AM) ELECTROLYTES Most recent to oldest [Reference Range]: 1 Sodium Lvl [135-145 mEq/L] 142 mEq/L (12/17/16 3:01 AM) Potassium Lvl [3.5-5.1 mEq/L] 3.8 mEq/L (12/17/16 3:01 AM) Chloride Lvl [95-109 mEq/L] 105 mEq/L (12/17/16 3:01 AM) CO2 [24-32 mEq/L] 29 mEq/L (12/17/16 3:01 AM) AGAP [10.0-20.0 mEq/L] 11.8 mEq/L (12/17/16 3:01 AM) CHEM PANEL Most recent to oldest [Reference Range]: 1 Creatinine Lvl [0.50-1.40 mg/dL] 0.87 mg/dL (12/17/16 3:01 AM) eGFR 106 mL/min/1.73m2 1 *NA* (12/17/16 3:01 AM) BUN [7-22 mg/dL] 17 mg/dL (12/17/16 3:01 AM) B/C Ratio [6-25] 20 (12/17/16 3:01 AM) Glucose Lvl [70-99 mg/dL] 95 mg/dL (12/17/16 3:01 AM) Total Protein [6.4-8.4 g/dL] 7.3 g/dL (12/17/16 3:01 AM) Albumin Lvl [3.5-5.0 g/dL] 3.1 g/dL *LOW* (12/17/16 3:01 AM) Globulin [2.7-4.2 g/dL] 4.2 g/dL (12/17/16 3:01 AM) A/G Ratio [0.7-1.6] 0.7 (12/17/16 3:01 AM) Calcium Lvl [8.5-10.5 mg/dL] 8.4 mg/dL *LOW* (12/17/16 3:01 AM) ALT [0-65 unit/L] 20 unit/L (12/17/16 3:01 AM) AST [0-37 unit/L] 14 unit/L (12/17/16 3:01 AM) Alk Phos [39-136 unit/L] 60 unit/L (12/17/16 3:01 AM) Bili Total [0.2-1.3 mg/dL] 0.2 mg/dL (12/17/16 3:01 AM) 1Result Comment: The eGFR is calculated using the CKD-EPI formula. In most young , healthy individualsthe eGFR will be >90 mL/min/1.73m2. The eGFR declines with age. An eGFR of 60-89 may be normal in some populations, particularly the elderly, for whom the CKD-EPI formula has not been extensively validated. Use of the eGFR is not recommended in the following populations: Individuals with unstable creatinine concentrations, including patients and those with serious co-morbid conditions. Patients with extremes in muscle mass or diet. The data above are obtained from the National Kidney Disease Education Program ( NKDEP) which additionally recommends that when the eGFR is used in patients with extremes of body mass index for purposesof drug dosing, the eGFR should be multiplied by the estimated BMI.ENDOCRINOLOGY Most recent to oldest [Reference Range]: 1 hCG Tot 3316 mIU/mL *NA* (12/17/16 3:01 AM) URINE CHEM Most recent to oldest [Reference Range]: 1 U Preg [Negative] Positive *ABN* (12/17/16 3:01 AM) URINE AND STOOL Most recent to oldest [Reference Range]: 1 UA Turbidity [Clear] Clear (12/17/16 3:01 AM) UA Color [Yellow] Yellow *NA* (12/17/16 3:01 AM) UA pH [5.0-8.0] 6.0 (12/17/16 3:01 AM) UA Spec Grav [<=1.030] >=1.030 *ABN* (12/17/16 3:01 AM) UA Glucose [Negative] Negative (12/17/16 3:01 AM) UA Blood [Negative] Negative (12/17/16 3:01 AM) UA Ketones [Negative] Trace *ABN* (12/17/16 3:01 AM) UA Protein [Negative] Negative (12/17/16 3:01 AM) UA Urobilinogen [0.1-1.0 EU/dL] 0.2 EU/dL (12/17/16 3:01 AM) UA Bili [Negative] Negative *NA* (12/17/16 3:01 AM) UA Leuk Est [Negative] Negative (12/17/16 3:01 AM) UA Nitrite [Negative] Negative (12/17/16 3:01 AM) UA WBC [None Seen /HPF] 0-2 /HPF (12/17/16 3:01 AM) UA RBC [0-2 /HPF] 0-2 /HPF (12/17/16 3:01 AM) UA Bacteria [None Seen /HPF] Occasional /HPF (12/17/16 3:01 AM) UA Sq Epi [Few /LPF] Occasional /LPF (12/17/16 3:01 AM) UA Mucus [None Seen] None Seen (12/17/16 3:01 AM) HEMATOLOGY Most recent to oldest [Reference Range]: 1 WBC [3.7-10.4 K/CMM] 12.2 K/CMM *HI* (12/17/16 3:01 AM) RBC [4.20-5.40 M/CMM] 5.95 M/CMM *HI* (12/17/16 3:01 AM) Hgb [12.0-16.0 g/dL] 12.1 g/dL (12/17/16 3:01 AM) Hct [36.0-48.0 %] 39.1 % (12/17/16 3:01 AM) MCV [80.0-98.0 fL] 65.8 fL *LOW* (12/17/16 3:01 AM) MCH [27.0-31.0 pg] 20.3 pg *LOW* (12/17/16 3:01 AM) MCHC [32.0-36.0 g/dL] 30.9 g/dL *LOW* (12/17/16 3:01 AM) RDW [11.5-14.5 %] 16.2 % *HI* (12/17/16 3:01 AM) Platelet [133-450 K/CMM] 267 K/CMM (12/17/16 3:01 AM) MPV [7.4-10.4 fL] 8.2 fL (12/17/16 3:01 AM) Segs [45.0-75.0 %] 55.5 % (12/17/16 3:01 AM) Lymphocytes [20.0-40.0 %] 34.8 % (12/17/16 3:01 AM) Monocytes [2.0-12.0 %] 8.2 % (12/17/16 3:01 AM) Eosinophils [0.0-4.0 %] 0.9 % (12/17/16 3:01 AM) Basophils [0.0-1.0 %] 0.6 % (12/17/16 3:01 AM) Segs-Bands # [1.5-8.1 K/CMM] 6.8 K/CMM (12/17/16 3:01 AM) Lymphocytes # [1.0-5.5 K/CMM] 4.3 K/CMM (12/17/16 3:01 AM) Monocytes # [0.0-0.8 K/CMM] 1.0 K/CMM *HI* (12/17/16 3:01 AM) Eosinophils # [0.0-0.5 K/CMM] 0.1 K/CMM (12/17/16 3:01 AM) Basophils # [0.0-0.2 K/CMM] 0.1 K/CMM (12/17/16 3:01 AM) Polychrom rare *NA* (12/17/16 3:01 AM) Microcyte [None Seen] 3+ *NA* (12/17/16 3:01 AM) Target Cell few *NA* (12/17/16 3:01 AM) Hyperseg few *NA* (12/17/16 3:01 AM) Stomatocyte few *NA* (12/17/16 3:01 AM) MOLECULAR DIAGNOSTIC Most recent to oldest [Reference Range]: 1 Source APTIMA Vaginal *NA* (12/17/16 3:12 AM) N gonorrhea by Amp Det (APTIMA) [Negative] Negative *NA* (12/17/16 3:12 AM) C trachomatis by Amp Det (APTIMA) [Negative] Negative *NA* (12/17/16 3:12 AM) Immunizations No data available for this section Procedures No data available for this section Social History Social History Type Response Smoking Status Never smoker; Lives with someone who smokes; Cigarette Smoking Last 365 Days No; Reg Smoking Cessation Counseling No Assessment and Plan No data available for this section
--- OUTSIDE RECORDS SUMMARY | 2019-02-20 06:25 | XMS REPORT | Summary of Care ---
:1990 Author Organization [facility] Address [address] [place], [place] [address]- Encounter HQ Virgie_delicia(FIN) [id number] Date(s): 01/16/17 - 01/16/17 [facility] [address] [place] [address]- [phone] Discharge Diagnosis: Accidental fall Discharge Diagnosis: Abdominal pain during in first trimester Discharge Disposition: Home or Self Care Attending Physician: Napoleon Leon DO Vital Signs Most recent to oldest [Reference Range]: 1 2 Height 157.48 cm (01/16/17 10:36 AM) Temperature Oral [96.4-99.1 DegF] 97.6 DegF 98.0 DegF (01/16/17 12:45 PM) (01/16/17 10:36 AM) Blood Pressure [90-140/60-90 mmHg] 120/86 mmHg 136/86 mmHg (01/16/17 12:45 PM) (01/16/17 10:36 AM) Respiratory Rate [14-20 BRMIN] 16 BRMIN 18 BRMIN (01/16/17 12:45 PM) (01/16/17 10:36 AM) Peripheral Pulse Rate [60-100 bpm] 91 bpm 99 bpm (01/16/17 12:45 PM) (01/16/17 10:36 AM) Weight 127.273 kg (01/16/17 10:36 AM) Body Mass Index 51.32 m2 (01/16/17 10:36 AM) Problem List No data available for this section Allergies, Adverse Reactions, Alerts Substance Reaction Severity Status NKDA Active Medications Saline Flush 0.9% 10 mL, Route: IVP, Drug Form: INJ, Dosing Weight 127.273, kg, PRN, PRN Line Flush, Start date: 01/16/17 10:51:00 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 Start Date: 01/16/17 Stop Date: 01/16/17 Status: Discontinued Results BLOOD BANK RESULTS Most recent to oldest [Reference Range]: 1 ABO/Rh A POS *Unknown* (01/16/17 11:02 AM) ENDOCRINOLOGY Most recent to oldest [Reference Range]: 1 S Preg [Negative] Positive *NA* (01/16/17 11:02 AM) [place] 17503 mIU/mL *NA* (01/16/17 11:02 AM) URINE AND STOOL Most recent to oldest [Reference Range]: 1 UA Turbidity [Clear] Clear (01/16/17 11:02 AM) UA Color Colorless *NA* (01/16/17 11:02 AM) UA pH [5.0-8.0] 6.0 (01/16/17 11:02 AM) UA Spec Grav [<=1.030] 1.001 (01/16/17 11:02 AM) UA Glucose [Negative mg/dL] Negative mg/dL *NA* (01/16/17 11:02 AM) UA Blood [Negative] Negative (01/16/17 11:02 AM) UA Ketones [Negative mg/dL] Negative mg/dL *NA* (01/16/17 11:02 AM) UA Protein [Negative mg/dL] Negative mg/dL (01/16/17 11:02 AM) UA Urobilinogen [0.1-1.0 mg/dL] <=1.0 mg/dL *NA* (01/16/17 11:02 AM) UA Bili [Negative] Negative *NA* (01/16/17 11:02 AM) UA Leuk Est [Negative] Negative (01/16/17 11:02 AM) UA Nitrite [Negative] Negative (01/16/17 11:02 AM) UA Sq Epi [Few /LPF] Occasional /LPF *NA* (01/16/17 11:02 AM) HEMATOLOGY Most recent to oldest [Reference Range]: 1 WBC [3.7-10.4 K/CMM] 13.9 K/CMM *HI* (01/16/17 11:02 AM) RBC [4.20-5.40 M/CMM] 5.86 M/CMM *HI* (01/16/17 11:02 AM) Hgb [12.0-16.0 g/dL] 11.9 g/dL *LOW* (01/16/17 11:02 AM) Hct [36.0-48.0 %] 38.2 % (01/16/17 11:02 AM) MCV [80.0-98.0 fL] 65.2 fL *LOW* (01/16/17:02 AM) MCH [27.0-31.0 pg] 20.3 pg *LOW* (01/16/17 11:02 AM) MCHC [32.0-36.0 g/dL] 31.1 g/dL *LOW* (01/16/17:02 AM) RDW [11.5-14.5 %] 16.3 % *HI* (01/16/17:02 AM) Platelet [133-450 K/CMM] 282 K/CMM (01/16/17 11:02 AM) MPV [7.4-10.4 fL] 7.8 fL (01/16/17 11:02 AM) Segs [45.0-75.0 %] 67.8 % (01/16/17 11:02 AM) Lymphocytes [20.0-40.0 %] 23.8 % (01/16/17 11:02 AM) Monocytes [2.0-12.0 %] 7.5 % (01/16/17 11:02 AM) Eosinophils [0.0-4.0 %] 0.4 % (01/16/17 11:02 AM) Basophils [0.0-1.0 %] 0.5 % (01/16/17 11:02 AM) Segs-Bands # [1.5-8.1 K/CMM] 9.5 K/CMM *HI* (01/16/17 11:02 AM) Lymphocytes # [1.0-5.5 K/CMM] 3.3 K/CMM (01/16/17 11:02 AM) Monocytes # [0.0-0.8 K/CMM] 1.0 K/CMM *HI* (01/16/17 11:02 AM) Eosinophils # [0.0-0.5 K/CMM] 0.1 K/CMM (01/16/17 11:02 AM) Basophils # [0.0-0.2 K/CMM] 0.1 K/CMM (01/16/17 11:02 AM) Microcyte [None Seen] 3+ *NA* (01/16/17 11:02 AM) Immunizations No data available for this section Procedures No data available for this section Social History Social History Type Response Smoking Status Never smoker; Ready to change: No; Concerns about tobacco use in household: No; Exposure to Tobacco Smoke None; Cigarette Smoking Last 365 Days No; Reg Smoking Cessation Counseling No Assessment and Plan No data available for this section
--- OUTSIDE RECORDS SUMMARY | 2019-02-20 06:25 | XMS REPORT | Summary of Care ---
:1990 Author Organization [facility] Address [id number] [place] [phone]- Encounter HQ Maritza(FIN) [id number] Date(s): 02/01/17 - 02/01/[address] [phone] Discharge Diagnosis: BV (bacterial vaginosis) Discharge Disposition: Home or Self Care Attending Physician: Maverick Mckinnon MD Vital Signs Most recent to oldest 1 2 3 [Reference Range]: Temperature Oral [96.4-99.1 98.6 DegF DegF] (02/01/17 5:16 PM) Blood Pressure [90-140/60-90 100/64 mmHg 107/63 mmHg 115/74 mmHg mmHg] (02/01/17 11:11 PM) (02/01/17 11:01 PM) (02/01/17 5:16 PM) Respiratory Rate [14-20 18 BRMIN 18 BRMIN 16 BRMIN BRMIN] (02/01/17 11:11 PM) (02/01/17 11:01 PM) (02/01/17 5:16 PM) Peripheral Pulse Rate [60-100 95 bpm 88 bpm 128 bpm bpm] (02/01/17 11:11 PM) (02/01/17 11:01 PM) *HI* (02/01/17 5:16 PM) Weight 131.364 kg (02/01/17 5:16 PM) Problem List No data available for this section Allergies, Adverse Reactions, Alerts Substance Reaction Severity Status NKDA Active Medications acetaminophen 650 mg, 2 tab, Route: PO, Drug form: TAB, ONCE, Dosing Weight 127.273, kg, Priority: STAT, Start date: 02/01/17 17:18:00 CDT, Stop date: 02/01/17 17:18:00 CDT Notes: Do not exceed 4 gm/day. (Same as: Tylenol) Start Date: 02/01/17 Stop Date: 02/01/17 Status: CompletedFlagyl 500 mg oral tablet 500 mg=1 tab, PO, BID, X 7 day, # 14 tab, 0 Refill(s) Start Date: 02/01/17 Stop Date: 02/08/17 Status: OrderedSaline Flush 0.9% 10 mL, Route: IVP, Drug Form: INJ, Dosing Weight 127.273, kg, PRN, PRN Line Flush, Start date: 02/01/17 17:18:00 CDT, Duration: 30 day, Stop date: 03/03/17 17:17:00 CDT Notes: (Same as: BD Posiflush) Start Date: 02/01/17 Stop Date: 02/02/17 Status: DiscontinuedTylenol 650 mg, Route: PO, Drug form: TAB, ONCE, Dosing Weight 131.364, kg, Priority: STAT, Start date: 02/01/17 23:06:00 CDT, Stop date: 02/01/17 23:06:00 CDT Start Date: 02/01/17 Stop Date: 02/01/17 Status: Completed Results BLOOD BANK RESULTS Most recent to oldest [Reference Range]: 1 ABO/Rh A POS *Unknown* (02/01/17 6:02 PM) ELECTROLYTES Most recent to oldest [Reference Range]: 1 Sodium Lvl [135-145 mEq/L] 138 mEq/L (02/01/17 6:49 PM) Potassium Lvl [3.5-5.1 mEq/L] 4.3 mEq/L (02/01/17 6:49 PM) Chloride Lvl [95-109 mEq/L] 106 mEq/L (02/01/17 6:49 PM) CO2 [24-32 mEq/L] 22 mEq/L *LOW* (02/01/17 6:49 PM) AGAP [10.0-20.0 mEq/L] 14.3 mEq/L (02/01/17 6:49 PM) CHEM PANEL Most recent to oldest [Reference Range]: 1 Creatinine Lvl [0.50-1.40 mg/dL] 0.70 mg/dL (02/01/17 6:49 PM) eGFR 139 mL/min/1.73m2 1 *NA* (02/01/17 6:49 PM) BUN [7-22 mg/dL] 16 mg/dL (02/01/17 6:49 PM) Glucose Lvl [70-99 mg/dL] 107 mg/dL *HI* (02/01/17 6:49 PM) Calcium Lvl [8.5-10.5 mg/dL] 7.9 mg/dL *LOW* (02/01/17 6:49 PM) 1Result Comment: The eGFR is calculated using [...] to oldest [Reference Range]: 1 h[place] 00728 mIU/mL *NA* (02/01/17 8:01 PM) URINE AND STOOL Most recent to oldest [Reference Range]: 1 UA Turbidity [Clear] Clear (02/01/17 8:01 PM) UA Color [Yellow] Yellow *NA* (02/01/17 8:01 PM) UA pH [5.0-8.0] 6.0 (02/01/17 8:01 PM) UA Spec Grav [<=1.030] >=1.030 *ABN* (02/01/17 8:01 PM) UA Glucose [Negative] Negative (02/01/17 8:01 PM) UA Blood [Negative] Negative (02/01/17 8:01 PM) UA Ketones [Negative] Negative *NA* (02/01/17 8:01 PM) UA Protein [Negative] Negative (02/01/17 8:01 PM) UA Urobilinogen [0.1-1.0 EU/dL] 0.2 EU/dL (02/01/17 8:01 PM) UA Bili [Negative] Negative *NA* (02/01/17 8:01 PM) UA Leuk Est [Negative] Negative (02/01/17 8:01 PM) UA Nitrite [Negative] Negative (02/01/17 8:01 PM) UA WBC [None Seen /HPF] 0-2 /HPF (02/01/17 8:01 PM) UA RBC [0-2 /HPF] 0-2 /HPF (02/01/17 8:01 PM) UA Bacteria [None Seen /HPF] Few /HPF (02/01/17 8:01 PM) UA Sq Epi [Few /LPF] Few /LPF (02/01/17 8:01 PM) HEMATOLOGY Most recent to oldest [Reference Range]: 1 WBC [3.7-10.4 K/CMM] 12.0 K/CMM *HI* (02/01/17 6:02 PM) RBC [4.20-5.40 M/CMM] 5.91 M/CMM *HI* (02/01/17 6:02 PM) Hgb [12.0-16.0 g/dL] 12.1 g/dL (02/01/17 6:02 PM) Hct [36.0-48.0 %] 38.7 % (02/01/17 6:02 PM) MCV [80.0-98.0 fL] 65.4 fL *LOW* (02/01/17 6:02 PM) MCH [27.0-31.0 pg] 20.5 pg *LOW* (02/01/17 6:02 PM) MCHC [32.0-36.0 g/dL] 31.4 g/dL *LOW* (02/01/17 6:02 PM) RDW [11.5-14.5 %] 15.7 % *HI* (02/01/17 6:02 PM) Platelet [133-450 K/CMM] 297 K/CMM (02/01/17 6:02 PM) MPV [7.4-10.4 fL] 8.0 fL (02/01/17 6:02 PM) Segs [45.0-75.0 %] 62.3 % (02/01/17 6:02 PM) Lymphocytes [20.0-40.0 %] 29.2 % (02/01/17 6:02 PM) Monocytes [2.0-12.0 %] 6.9 % (02/01/17 6:02 PM) Eosinophils [0.0-4.0 %] 1.1 % (02/01/17 6:02 PM) Basophils [0.0-1.0 %] 0.5 % (02/01/17 6:02 PM) Segs-Bands # [1.5-8.1 K/CMM] 7.5 K/CMM (02/01/17 6:02 PM) Lymphocytes # [1.0-5.5 K/CMM] 3.5 K/CMM (02/01/17 6:02 PM) Monocytes # [0.0-0.8 K/CMM] 0.8 K/CMM (02/01/17 6:02 PM) Eosinophils # [0.0-0.5 K/CMM] 0.1 K/CMM (02/01/17 6:02 PM) Basophils # [0.0-0.2 K/CMM] 0.1 K/CMM (02/01/17 6:02 PM) Anisocyte [None Seen] 1+ *ABN* (02/01/17 6:02 PM) Microcyte [None Seen] 3+ *NA* (02/01/17 6:02 PM) Plt Morph Normal (02/01/17 6:02 PM) MOLECULAR DIAGNOSTIC Most recent to oldest [Reference Range]: 1 Source APTIMA Endocervix *NA* (02/01/17 9:57 PM) N gonorrhea by Amp Det (APTIMA) [Negative] Negative *NA* (02/01/17 9:57 PM) C trachomatis by Amp Det (APTIMA) [Negative] Negative *NA* (02/01/17 9:57 PM) Immunizations No data available for this section [...]
--- OUTSIDE RECORDS SUMMARY | 2019-02-20 06:25 | XMS REPORT ---
:1990 Author Organization [facility] Address [address] [place] [address] [address] [place] [address] Care Team Providers Name Role Phone Unavailable Unavailable Unavailable Problems This patient has no known problems. Allergies, Adverse Reactions, Alerts This patient has no known allergies or adverse reactions. Medications This patient has no known medications.
[2019-02-20 07:09] LABS: Urine Blood 2+ (NEG); Urine Glucose NEGATIVE (NEG); Urine Protein TRACE (NEG); Urine Specific Gravity 1.025 (1.005-1.030)
[2019-02-20 07:14] LABS: Urine Bacteria >50 /HPF (<20); Urine Culture Reflex Order NOT NEEDED; Urine Mucus LIGHT /HPF (NONE SEEN); Urine RBC 20-50 /HPF (NONE SEEN)
[2019-02-20 07:20] LABS: Absolute Monocytes 0.6 K/uL (0.1-1.3); Absolute Neutrophil 4.6 K/uL (1.8-8.0); Basophils % 0.9 % (0-1.3); Eosinophils % 1.9 % (0-4.4); Hematocrit 39.1 % (36.0-45.0); Lymphocytes % 35.7 % (15.3-44.8); MPV 8.8 fL (7.6-11.3); RBC Red Blood Cell Count 5.96 M/uL (3.86-4.86)
[2019-02-20 07:26] LABS: BUN Blood Urea Nitrogen 18 mg/dL (7-18); Bicarbonate 26 mmol/L (21-32); Glucose Level 105 mg/dL (74-106); Potassium 4.4 mmol/L (3.5-5.1); Sodium Level 139 mmol/L (136-145)
--- NOTE | 2019-02-20 07:53 | EDPHYS ---
Physician Documentation [facility] Name: Rachel Mares Age: 28 yrs Sex: Female : 1990 Arrival Date: 02/20/2019 Time: 06:23 Bed 19 Private MD: ED Physician Arvin Dick HPI: 02/20 07:02 This 28 yrs old Black Female presents to ER via Ambulatory with complaints of Vaginal kb Bleeding - Blood Clots. 07:02 The patient presents with vaginal bleeding that is moderate, with clots. Onset: The kb symptoms/episode began/occurred yesterday. Modifying factors: The symptoms are alleviated by nothing, the symptoms are aggravated by nothing. Associated signs and symptoms: Pertinent positives: vaginal bleeding, Pertinent negatives: constipation, cramping, diarrhea, dyspareunia, dysuria, fever, hematuria, nausea, urinary frequency, vaginal discharge, vomiting. Severity of symptoms: At their worst the symptoms were moderate, in the emergency department the symptoms are unchanged. The patient's method of control includes condom. The patient has experienced similar episodes in the past. The patient has not recently seen a physician. Pt reports she started her period yesterday and was passing small clots which is normal for her. This morning passed a large clot so she was concerned . 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 - Social history:: Smoking status: Patient/guardian denies using tobacco, Patient/guardian denies using alcohol, street drugs. - Ebola Screening: : No symptoms or risks identified at this time. ROS: 07:01 Constitutional: Negative for fever, chills, and weight loss, Cardiovascular: Negative kb for chest pain, palpitations, and edema, Respiratory: Negative for shortness of breath, cough, wheezing, and pleuritic chest pain, Abdomen/GI: Negative for abdominal pain, nausea, vomiting, diarrhea, and constipation, Back: Negative for injury and pain, MS/Extremity: Negative for injury and deformity, Skin: Negative for injury, rash, and discoloration, Neuro: Negative for headache, weakness, numbness, tingling, and seizure. 07:01 : Positive for vaginal bleeding. Exam: 07:01 Constitutional: This is a well developed, well nourished patient who is awake, alert, kb and in no acute distress. Head/Face: Normocephalic, atraumatic. Neck: Trachea midline, no thyromegaly or masses palpated, and no cervical lymphadenopathy. Supple, full range of motion without nuchal rigidity, or vertebral point tenderness. No Meningismus. Chest/axilla: Normal chest wall appearance and motion. Nontender with no deformity. No lesions are appreciated. Cardiovascular: Regular rate and rhythm with a normal S1 and S2. No gallops, murmurs, or rubs. Normal PMI, no JVD. No pulse deficits. Respiratory: Lungs have equal breath sounds bilaterally, clear to auscultation and percussion. No rales, rhonchi or wheezes noted. No increased work of breathing, no retractions or nasal flaring. Abdomen/GI: Soft, non-tender, with normal bowel sounds. No distension or tympany. No guarding or rebound. No evidence of tenderness throughout. Back: No spinal tenderness. No costovertebral tenderness. Full range of motion. Skin: Warm, dry with normal turgor. Normal color with no rashes, no lesions, and no evidence of cellulitis. MS/ Extremity: Pulses equal, no cyanosis. Neurovascular intact. Full, normal range of motion. Neuro: Awake and alert, GCS 15, oriented to person, place, time, and situation. Cranial nerves II-XII grossly intact. Motor strength 5/5 in all extremities. Sensory grossly intact. Cerebellar exam normal. Normal gait. Vital Signs: 06:34 BP 139 / 87; Pulse 88; Resp 16 S; Temp 98.1(O); Pulse Ox 100% on R/A; Weight 136.08 kg bb (R); Height 5 ft. 3 in. (160.02 cm) (R); Pain 7/10; 08:21 BP 127 / 82; Pulse 81; Resp 18; Temp 98.0; Pulse Ox 99% on R/A; ph 06:34 Body Mass Index 53.14 (136.08 kg, 160.02 cm) bb MDM: 06:30 Patient medically screened. kb 07:02 Data reviewed: vital signs, nurses notes. Data interpreted: Pulse oximetry: on room air kb is 100 %. Interpretation: normal. 07:51 Counseling: I had a detailed discussion with the patient and/or guardian regarding: the kb historical points, exam findings, and any diagnostic results supporting the discharge/admit diagnosis, lab results, the need for outpatient follow up, an OB/Gyne specialist, to return to the emergency department if symptoms worsen or persist or if there are any questions or concerns that arise at home. 02/20 06:47 Order name: Urine Microscopic Only kb 02/20 06:47 Order name: CBC with Diff kb 02/20 06:47 Order name: Basic Metabolic Panel; Complete Time: 07:27 kb 02/20 06:48 Order name: Urine Microscopic Only; Complete Time: 07:16 EDMS 02/20 06:48 Order name: CBC with Automated Diff EDMS 02/20 06:50 Order name: Urine Dipstick--Ancillary (enter results); Complete Time: 07:12 ar5 02/20 06:47 Order name: Urine Test (obtain specimen); Complete Time: 06:49 kb 02/20 06:47 Order name: Urine Dipstick-Ancillary (obtain specimen); Complete Time: 06:49 kb 02/20 06:50 Order name: Urine --Ancillary (enter results); Complete Time: 07:12 ar5 02/20 07:22 Order name: CBC Smear Scan EDMS Administered Medications: 08:17 Drug: Macrobid 100 mg Route: PO; ph 08:17 Follow up: Response: No adverse reaction; Medication administered at discharge. ph Disposition: 02/20/19 07:52 Discharged to Home. Impression: Urinary tract infection, site not specified. - Condition is Stable. - Discharge Instructions: Urinary Tract Infection, Adult, [id number]. - Prescriptions for Macrobid 100 mg Oral Capsule - take 1 capsule by ORAL route every 12 hours for 7 days; 14 capsule. - Medication Reconciliation Form, Thank You Letter, Antibiotic Education, Prescription Opioid Use, Work release form form. - Follow up: Emergency Department; When: As needed; Reason: Worsening of condition. Follow up: Private Physician; When: 2 - 3 days; Reason: Recheck today's complaints, Continuance of care, Re-evaluation by your physician. Signatures: Dispatcher [employer] EDSoni Vick, ORTHOTIST OR PROSTHETIST-C ORTHOTIST OR PROSTHETIST-Radha Booker, RN RN bb Luli Carroll, RN RN ph Corrections: (The following items were deleted from the chart) 08:22 07:52 02/20/2019 07:52 Discharged to Home. Impression: Urinary tract infection, site ph not specified. Condition is Stable. Forms are Medication Reconciliation Form, Thank You Letter, Antibiotic Education, Prescription Opioid Use. Follow up: Emergency Department; When: As needed; Reason: Worsening of condition. Follow up: Private Physician; When: 2 - 3 days; Reason: Recheck today's complaints, Continuance of care, Re-evaluation by your physician. kb
--- NOTE | 2019-02-20 07:53 | ER ---
Nurse's Notes [facility] Name: Rachel Mares Age: 28 yrs Sex: Female : 1990 Arrival Date: 02/20/2019 Time: 06:23 Bed 19 Private MD: Diagnosis: Urinary tract infection, site not specified Presentation: 02/20 06:32 Presenting complaint: Patient states: she is having a lot of blood clots with lower bb abdominal pain since yesterday pt says she had LMP January 27 and there is a possibility that she is but she does not think so. Transition of care: patient was not received from another setting of care. Onset of symptoms was February 19, 2019. Risk Assessment: Do you want to hurt yourself or someone else? Patient reports no desire to harm self or others. Initial Sepsis Screen: Does the patient meet any 2 criteria? No. Patient's initial sepsis screen is negative. Does the patient have a suspected source of infection? No. Patient's initial sepsis screen is negative. Care prior to arrival: None. 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 - Social history:: Smoking status: Patient/guardian denies using tobacco, Patient/guardian denies using alcohol, street drugs. - Ebola Screening: : No symptoms or risks identified at this time. Screenin:50 Abuse screen: Denies threats or abuse. Nutritional screening: No deficits noted. ea Tuberculosis screening: No symptoms or risk factors identified. Fall Risk None identified. Assessment: 06:49 General: Appears in no apparent distress. Behavior is calm, cooperative, appropriate ea for age. Pain: Complains of pain in suprapubic area. Neuro: Level of Consciousness is awake, alert, obeys commands, Oriented to person, place, time, situation. Cardiovascular: Patient's skin is warm and dry. Respiratory: Airway is patent Respiratory effort is even, unlabored, Respiratory pattern is regular, symmetrical. : Reports vaginal bleeding that is bright red, with clots, heavy flow. Derm: Skin is pink, warm \T\ dry. 08:15 Reassessment: Patient appears in no apparent distress at this time. Patient and/or ph family updated on plan of care and expected duration. Pain level reassessed. Patient is alert, oriented x 3, equal unlabored respirations, skin warm/dry/pink. Pt d/c home. Vital Signs: 06:34 BP 139 / 87; Pulse 88; Resp 16 S; Temp 98.1(O); Pulse Ox 100% on R/A; Weight 136.08 kg bb (R); Height 5 ft. 3 in. (160.02 cm) (R); Pain 7/10; 08:21 BP 127 / 82; Pulse 81; Resp 18; Temp 98.0; Pulse Ox 99% on R/A; ph 06:34 Body Mass Index 53.14 (136.08 kg, 160.02 cm) bb ED Course: 06:23 Patient arrived in ED. ds1 06:30 Soni Briggs FNP-C [facility]. kb 06:30 Arvin Dick MD is Attending Physician. kb 06:34 Triage completed. bb 06:34 Arm band placed on Patient placed in an exam room, on a stretcher, on pulse oximetry. bb 06:49 Blanquita Aaron, LOR is Primary Nurse. ea 06:49 Urine Microscopic Only Sent. bb 06:50 Patient has correct armband on for positive identification. Placed in gown. Bed in low ea position. Call light in reach. Side rails up X 1. 07:20 Missed attempt(s): 20 gauge in right antecubital area. Bleeding controlled, band aid ea applied, catheter tip intact. 07:22 Report given to Report given to Luli HOROWITZ. ea 07:27 No provider procedures requiring assistance completed. ph 08:20 Patient did not have IV access during this emergency room visit. ph Administered Medications: 08:17 Drug: Macrobid 100 mg Route: PO; ph 08:17 Follow up: Response: No adverse reaction; Medication administered at discharge. ph Outcome: 07:52 Discharge ordered by . kb 08:18 Discharged to home ambulatory. ph 08:18 Condition: good 08:18 Discharge instructions given to patient, Instructed on discharge instructions, follow up and referral plans. medication usage, Demonstrated understanding of instructions, follow-up care, medications, Prescriptions given X 1. 08:22 Patient left the ED. ph Signatures: Soni Briggs, DEONTE DOVER-Elham Talamantes ds1 Radha Wolff, RN RN bb Luli Carroll RN RN Blanquita Abdalla RN RN pat
[2019-02-20] MEDS ORDERED: NITROFURAN MACRO 100 MG CAP PO ONE (08:16)
[2019-02-20 08:30] VITALS: BP 127/82; TEMP 98; O2SAT 99
[2019-02-20 08:50] LABS: Platelet Estimate ADEQ; Urine White Blood Cell Casts OK
[2019-02-20 08:51] LABS: Blood Morphology Comment NOT SEEN (NOT SEEN)
== END 2019-02-20 08:22 | disposition home or self-care (01) ==
LOC: ER 06:21
DX: N39.0 Urinary tract infection, site not specified (principal)
CPT/HCPCS: 36415; 80048; 81003; 81015; 81025; 85025; 99284

== ENCOUNTER 2019-04-05 08:10 | Emergency (ER) | payer SELFPAY ==
[2019-04-05] MEDS ORDERED: DICYCLOMINE HCL 10 MG CAP ONE (08:56)
[2019-04-05] MEDS ORDERED: ONDANSETRON 4 MG/2 ML VIAL ONE (08:56)
[2019-04-05] MEDS ORDERED: FAMOTIDINE 20 MG/2 ML VIAL IV ONE (08:57)
[2019-04-05] MEDS ORDERED: NA CHLORIDE 0.9% 1,000 ML ONE (08:57)
--- OUTSIDE RECORDS SUMMARY | 2019-04-05 09:01 | XMS REPORT | Continuity of Care Document ---
:1990 Author Organization Interface Problems Problem Status Onset Classification Date Comments Source Date Reported Discharge 02/04/2017 [facility] Diagnosis: BV 7 ABDOMINAL PAIN Active [facility] - 7 [place] Discharge 01/19/2017 [facility] Diagnosis: 7 Accidental fall Discharge 01/19/2017 [facility] Diagnosis: 7 Abdominal pain during in first trimester 8 WKS Active [facility] PREG/FALL 7 Discharge 12/20/2016 [facility] Diagnosis: 7 Abdominal pain affecting Discharge 12/20/2016 [facility] Diagnosis: 7 Acute UTI PELVIC PAIN Active [facility] 7 [place] Medications Medication Details Route Status Patient Ordering Order Source Instructions Provider Date Tylenol 650 mg, Route: Inactive PO, Drug form: 2016 [facility] TAB, ONCE, Dosing Weight 131.364, kg, Priority: STAT, Start date: 02/01/17 23:06:00 CDT, Stop date: 02/01/17 23:06:00 CDT Metronidazole 500 mg=1 tab, Active 500 MG Oral PO, BID, X 7 2016 [facility] Tablet [Flagyl] day, # 14 tab, 0 Refill(s) Acetaminophen 650 mg, 2 tab, Inactive Route: PO, 2016 [facility] Drug form: TAB, ONCE, Dosing Weight 127.273, kg, Priority: STAT, Start date: 02/01/17 17:18:00 CDT, Stop date: 02/01/17 17:18:00 CDTNotes: Do not exceed 4 gm/day. (Same as: Tylenol) Saline Flush 10 mL, Route: No Longer 0.9% IVP, Drug Active 2016 [facility] Form: INJ, Dosing Weight 127.273, kg, PRN, PRN Line Flush, Start date: 02/01/17 17:18:00 CDT, Duration: 30 day, Stop date: 03/03/17 17:17:00 CDTNotes: (Same as: BD Posiflush) Saline Flush 10 mL, Route: Inactive 0.9% IVP, Drug 2016 [facility] Form: INJ, Dosing Weight 127.273, kg, PRN, PRN Line Flush, Start date: 01/16/17 10:51:00 BROWN SOURER, Duration: 30 day, Stop date: 02/15/17 11:50:00 CDTNotes: preservative free. Cephalexin 500 500 mg=1 cap, Active MH MG Oral Capsule PO, BID, X 7 2016 [facility] [Keflex] , # 14 cap, 0 Refill(s) Sodium Chloride 1,000 mL, Inactive 0.154 MEQ/ML 1,000 ml/hr, 2016 [facility] Injectable Infuse Over: 1 Solution hr, Route: IV, 1,000, Drug form: INJ, ONCE, Priority: STAT, Dosing Weight 136.364 kg, Start date: 12/17/16 4:37:00 BROWN SOURER, Duration: 1 doses or times, Stop date: 12/17/16 4:37:00 BROWN SOURER Sodium Chloride 1,000 mL, Inactive 0.154 MEQ/ML 1,000 ml/hr, 2016 [facility] Injectable Infuse Over: 1 Solution hr, Route: IV, 1,000, Drug form: INJ, ONCE, Priority: STAT, Dosing Weight 136.364 kg, Start date: 12/17/16 2:27:00 BROWN SOURER, Duration: 1 doses or times, Stop date: 12/17/16 2:27:00 BROWN SOURER Allergies, Adverse Reactions, Alerts Substance Category Reaction Severity Reaction Status Date Comments Source type Reported Immunizations Immunization Date Given Site Status Last Updated Comments Source Results Order Name Results Value Reference Date Interpretation Comments Source Range MOLECULAR N gonorrhea Negative Negative 02/02 DIAGNOSTIC by Amp Det /2016 [facility] ([facility]TIM[facility]) *NA* (02/01/17 9:57 PM) MOLECULAR Source Endocervix 02/02 DIAGNOSTIC APTIMA /2016 [facility] *NA* (02/01/17 9:57 PM) MOLECULAR C Negative Negative 02/02 DIAGNOSTIC trachomatis [facility] by [facility]mp Det *NA* (APTIMA) (02/01/17 9:57 PM) [place] [address] 02/02 OGY mIU/mL [facility] URINE AND UA Blood Negative Negative 02/02 STOOL [facility] (02/01/17 8:01 PM) URINE AND UA Ketones Negative Negative 02/02 [facility] *NA* (02/01/17 8:01 PM) URINE AND UA Bili Negative Negative 02/02 STOOL [facility] *NA* (02/01/17 8:01 PM) URINE AND UA 0.2 EU/dL 0.1 - 1.0 02/02 STOOL Urobilinogen [facility] URINE AND UA Nitrite Negative Negative 02/02 STOOL [facility] (02/01/17 8:01 PM) URINE AND UA Sq Epi Few /LPF Few /LPF 02/02 [facility] URINE AND UA Leuk Est Negative Negative 02/02 STOOL [facility] (02/01/17 8:01 PM) URINE AND UA Bacteria Few /HPF None Seen 02/02 STOOL /HPF [facility] URINE AND UA RBC 0-2 /HPF 0 - 2 02/02 [facility] URINE AND UA Glucose Negative Negative 02/02 STOOL [facility] (02/01/17 8:01 PM) URINE AND UA Protein Negative Negative 02/02 STOOL [facility] (02/01/17 8:01 PM) URINE AND UA pH 6.0 5.0 - 8.0 02/02 [facility] URINE AND UA Spec Grav >=1.030 <=1.030 02/02 [facility] *ABN* (02/01/17 8:01 PM) URINE AND UA Turbidity Clear Clear 02/02 [facility] (02/01/17 8:01 PM) URINE AND UA Color Yellow Yellow 02/02 STOOL [facility] *NA* (02/01/17 8:01 PM) URINE AND UA WBC 0-2 /HPF None Seen 02/02 STOOL /HPF [facility] CHEM PANEL eGFR 139 02/01 Result Comment: [...] is not recommended in the following populations: [facility] 3m2 Individuals with unstable creatinine concentrations, including [...] Lvl 107 mg/dL 70 - 99 02/01 [facility] CHEM PANEL Sodium Lvl 138 meq/L 135 - 145 02/01 [facility] CHEM PANEL BUN 16 mg/dL 7 - 22 02/01 [facility] CHEM PANEL Creatinine 0.70 mg/dL 0.50 - 02/01 MH Lvl 1.40 [facility] CHEM PANEL Calcium Lvl 7.9 mg/dL 8.5 - 10.5 02/01 [facility] CHEM PANEL Chloride Lvl 106 meq/L 95 - 109 02/01 [facility] CHEM PANEL CO2 22 meq/L 24 - 32 02/01 [facility] CHEM PANEL Potassium 4.3 meq/L 3.5 - 5.1 02/01 Lvl [facility] CHEM PANEL AGAP 14.3 meq/L 10.0 - 02/01 MH 20.0 [facility] BLOOD BANK ABO/Rh A POS 02/01 RESULTS [facility] HEMATOLOGY Monocytes # 0.8 K/CMM 0.0 - 0.8 02/01 [facility] HEMATOLOGY Lymphocytes 3.5 K/CMM 1.0 - 5.5 02/01 # [facility] HEMATOLOGY Eosinophils 0.1 K/CMM 0.0 - 0.5 02/01 # [facility] HEMATOLOGY Basophils # 0.1 K/CMM 0.0 - 0.2 02/01 [facility] HEMATOLOGY Microcyte 3+ None Seen 02/01 [facility] *NA* (02/01/17 6:02 PM) HEMATOLOGY Anisocyte 1+ None Seen 02/01 [facility] *ABN* (02/01/17 6:02 PM) HEMATOLOGY Plt Morph Normal 02/01 [facility] (02/01/17 6:02 PM) HEMATOLOGY Segs 62.3 % 45.0 - 02/01 MH 75.0 [facility] HEMATOLOGY Eosinophils 1.1 % 0.0 - 4.0 02/01 [facility] HEMATOLOGY Basophils 0.5 % 0.0 - 1.0 02/01 [facility] HEMATOLOGY Monocytes 6.9 % 2.0 - 12.0 02/01 [facility] HEMATOLOGY Lymphocytes 29.2 % 20.0 - 02/01 MH 40.0 [facility] HEMATOLOGY Segs-Bands # 7.5 K/CMM 1.5 - 8.1 02/01 [facility] HEMATOLOGY Platelet 297 K/CMM 133 - 450 02/01 [facility] HEMATOLOGY RDW 15.7 % 11.5 - 02/01 MH 14.5 [facility] HEMATOLOGY MCHC 31.4 g/dL 32.0 - 02/01 MH 36.0 [facility] HEMATOLOGY MCV 65.4 fL 80.0 - 02/01 MH 98.0 [facility] HEMATOLOGY MCH 20.5 pg 27.0 - 02/01 MH 31.0 [facility] HEMATOLOGY Hct 38.7 % 36.0 - 02/01 MH 48.0 [facility] HEMATOLOGY Hgb 12.1 g/dL 12.0 - 02/01 MH 16.0 [facility] HEMATOLOGY WBC X 10x3 12.0 K/CMM 3.7 - 10.4 02/01 [facility] HEMATOLOGY RBC X 10x6 5.91 M/CMM 4.20 - 02/01 MH 5.40 [facility] HEMATOLOGY MPV 8.0 fL 7.4 - 10.4 02/01 [facility] < Study: Pelvic ultrasound 02/01 [facility] < 14 weeks 14 weeks /2016 - [place] single single gestation gestation US US History: [...] BLOOD BANK ABO/Rh A POS 01/16 RESULTS [facility] ENDOCRINOL S Preg Positive Negative 01/16 OGY /2016 [facility] *NA* (01/16/17 11:02 AM) [place] [address] 01/16 OGY mIU/mL /2016 [facility] MPV 7.8 fL 7.4 - 10.4 01/16 [facility] Hgb 11.9 g/dL 12.0 - 01/16 16.0 [facility] Hct 38.2 % 36.0 - 01/16 48.0 [facility] MCHC 31.1 g/dL 32.0 - 01/16 36.0 [facility] HEMATOLOGY RBC 5.86 M/CMM 4.20 - 01/16 MH 5.40 /2016 [facility] HEMATOLOGY WBC 13.9 K/CMM 3.7 - 10.4 01/16 /2016 [facility] HEMATOLOGY MCV 65.2 fL 80.0 - 01/16 98.0 /2016 [facility] HEMATOLOGY MCH 20.3 pg 27.0 - 01/16 31.0 [facility] Platelet 282 K/CMM 133 - 450 01/16 /2016 [facility] RDW 16.3 % 11.5 - 01/16 14.5 /2016 [facility] HEMATOLOGY Segs 67.8 % 45.0 - 01/16 75.0 /2016 [facility] Lymphocytes 23.8 % 20.0 - 01/16 40.0 /2016 [facility] HEMATOLOGY Monocytes # 1.0 K/CMM 0.0 - 0.8 01/16 [facility] HEMATOLOGY Eosinophils 0.4 % 0.0 - 4.0 01/16 [facility] HEMATOLOGY Monocytes 7.5 % 2.0 - 12.0 01/16 [facility] Segs-Bands # 9.5 K/CMM 1.5 - 8.1 01/16 [facility] Lymphocytes 3.3 K/CMM 1.0 - 5.5 01/16 MH # /2016 [facility] HEMATOLOGY Basophils 0.5 % 0.0 - 1.0 01/16 [facility] HEMATOLOGY Eosinophils 0.1 K/CMM 0.0 - 0.5 01/16 # /2016 [facility] HEMATOLOGY Basophils # 0.1 K/CMM 0.0 - 0.2 01/16 [facility] HEMATOLOGY Microcyte 3+ None Seen 01/16 [facility] *NA* (01/16/17 11:02 AM) URINE AND UA Nitrite Negative Negative 01/16 (01/16/17 11:02 AM) URINE AND UA Bili Negative Negative 01/16 [facility] *NA* (01/16/17 11:02 AM) URINE AND UA Leuk Est Negative Negative 01/16 (01/16/17 11:02 AM) URINE AND UA Blood Negative Negative 01/16 [facility] (01/16/17 11:02 AM) URINE AND UA Sq Epi Occasional Few /LPF 01/16 STOOL /LPF [facility] URINE AND UA Color Colorless 01/16 [facility] URINE AND UA <=1.0 0.1 - 1.0 01/16 STOOL Urobilinogen mg/dL [facility] URINE AND UA Spec Grav 1.001 <=1.030 01/16 [facility] URINE AND UA Turbidity Clear Clear 01/16 [facility] (01/16/17 11:02 AM) URINE AND UA pH 6.0 5.0 - 8.0 01/16 [facility] URINE AND UA Glucose Negative Negative 01/16 STOOL mg/dL mg/dL [facility] URINE AND UA Protein Negative Negative 01/16 STOOL mg/dL mg/dL [facility] URINE AND UA Ketones Negative Negative 01/16 STOOL mg/dL mg/dL [facility] Preg < Preg < 14wks EXAM: Ultrasound [...] gestational age 10 weeks 0 days. SL: [id number] MOLECULAR Source Vaginal 12/17 DIAGNOSTIC [facility] *NA* (12/17/16 3:12 AM) MOLECULAR C Negative Negative 12/17 DIAGNOSTIC trachomatis [facility] by [facility]mp Det *NA* (APTIMA) (12/17/16 3:12 AM) MOLECULAR N gonorrhea Negative Negative 12/17 DIAGNOSTIC by Amp Det /2016 [facility] ([facility]TIMA) *NA* (12/17/16 3:12 AM) BLOOD BANK ABO/Rh A POS 12/17 RESULTS [facility] CHEM PANEL eGFR 106 12/17 Result Comment: [...] is not recommended in the following populations: [facility] 3m2 Individuals with unstable creatinine concentrations, including [...] 14 unit/L 0 - 37 12/17 TRANSAMINASE [facility] CHEM PANEL Total 7.3 g/dL 6.4 - 8.4 12/17 Protein [facility] CHEM PANEL Calcium Lvl 8.4 mg/dL 8.5 - 10.5 12/17 [facility] CHEM PANEL CO2 29 meq/L 24 - 32 12/17 [facility] CHEM PANEL Chloride Lvl 105 meq/L 95 - 109 12/17 [facility] CHEM PANEL Alk Phos 60 unit/L 39 - 136 12/17 [facility] CHEM PANEL ALANINE 20 unit/L 0 - 65 12/17 AMINOTRANS [facility] RASE CHEM PANEL Albumin Lvl 3.1 g/dL 3.5 - 5.0 12/17 [facility] CHEM PANEL Creatinine 0.87 mg/dL 0.50 - 12/17 MH Lvl 1.40 [facility] CHEM PANEL BUN 17 mg/dL 7 - 22 12/17 [facility] CHEM PANEL Glucose Lvl 95 mg/dL 70 - 99 12/17 [facility] CHEM PANEL Bili Total 0.2 mg/dL 0.2 - 1.3 12/17 [facility] CHEM PANEL Potassium 3.8 meq/L 3.5 - 5.1 12/17 MH Lvl [facility] CHEM PANEL Sodium Lvl 142 meq/L 135 - 145 12/17 [facility] CHEM PANEL A/G Ratio 0.7 0.7 - 1.6 12/17 [facility] CHEM PANEL B/C Ratio 20 6 - 25 12/17 [facility] CHEM PANEL AGAP 11.8 meq/L 10.0 - 12/17 MH 20.0 [facility] CHEM PANEL Globulin 4.2 g/dL 2.7 - 4.2 12/17 [facility] ENDOCRINOL hCG Tot 3316 12/17 OGY mIU/mL [facility] HEMATOLOGY Target Cell few 12/17 [facility] HEMATOLOGY Hyperseg few 12/17 [facility] HEMATOLOGY Polychrom rare 12/17 [facility] HEMATOLOGY Stomatocyte few 12/17 [facility] HEMATOLOGY Eosinophils 0.9 % 0.0 - 4.0 12/17 [facility] HEMATOLOGY Basophils 0.6 % 0.0 - 1.0 12/17 [facility] HEMATOLOGY Segs-Bands # 6.8 K/CMM 1.5 - 8.1 12/17 [facility] HEMATOLOGY Lymphocytes 34.8 % 20.0 - 12/17 MH 40.0 [facility] HEMATOLOGY Monocytes 8.2 % 2.0 - 12.0 12/17 [facility] HEMATOLOGY Eosinophils 0.1 K/CMM 0.0 - 0.5 12/17 # /2016 [facility] HEMATOLOGY Basophils # 0.1 K/CMM 0.0 - 0.2 12/17 [facility] HEMATOLOGY Microcyte 3+ None Seen 12/17 [facility] *NA* (12/17/16 3:01 AM) HEMATOLOGY Lymphocytes 4.3 K/CMM 1.0 - 5.5 12/17 # /2016 [facility] HEMATOLOGY Monocytes # 1.0 K/CMM 0.0 - 0.8 12/17 [facility] HEMATOLOGY Segs 55.5 % 45.0 - 12/17 MH 75.0 [facility] HEMATOLOGY MPV 8.2 fL 7.4 - 10.4 12/17 [facility] HEMATOLOGY Platelet 267 K/CMM 133 - 450 12/17 [facility] HEMATOLOGY Hgb 12.1 g/dL 12.0 - 12/17 MH 16.0 [facility] HEMATOLOGY RBC X 10x6 5.95 M/CMM 4.20 - 12/17 MH 5.40 [facility] HEMATOLOGY WBC X 10x3 12.2 K/CMM 3.7 - 10.4 12/17 [facility] HEMATOLOGY RDW 16.2 % 11.5 - 12/17 MH 14.5 [facility] HEMATOLOGY MCHC 30.9 g/dL 32.0 - 12/17 MH 36.0 [facility] HEMATOLOGY MCH 20.3 pg 27.0 - 12/17 MH 31.0 [facility] HEMATOLOGY MCV 65.8 fL 80.0 - 12/17 MH 98.0 [facility] HEMATOLOGY Hct 39.1 % 36.0 - 12/17 MH 48.0 [facility] URINE AND UA Mucus None Seen None Seen 12/17 STOOL [facility] (12/17/16 3:01 AM) URINE AND UA Bacteria Occasional None Seen 12/17 STOOL /HPF /HPF /2016 [facility] URINE AND UA Leuk Est Negative Negative 12/17 STOOL [facility] (12/17/16 3:01 AM) URINE AND UA Sq Epi Occasional Few /LPF 12/17 STOOL /LPF /2016 [facility] URINE AND UA Nitrite Negative Negative 12/17 [facility] (12/17/16 3:01 AM) URINE AND UA WBC 0-2 /HPF None Seen 12/17 STOOL /HPF [facility] URINE AND UA RBC 0-2 /HPF 0 - 2 12/17 [facility] URINE AND UA Color Yellow Yellow 12/17 [facility] *NA* (12/17/16 3:01 AM) URINE AND UA Turbidity Clear Clear 12/17 [facility] (12/17/16 3:01 AM) URINE AND UA 0.2 EU/dL 0.1 - 1.0 12/17 [facility] Urobilinogen [facility] URINE AND UA Blood Negative Negative 12/17 [facility] (12/17/16 3:01 AM) URINE AND UA Bili Negative Negative 12/17 [facility] *NA* (12/17/16 3:01 AM) URINE AND UA pH 6.0 5.0 - 8.0 12/17 [facility] URINE AND UA Protein Negative Negative 12/17 [facility] (12/17/16 3:01 AM) URINE AND UA Spec Grav >=1.030 <=1.030 12/17 [facility] *ABN* (12/17/16 3:01 AM) URINE AND UA Ketones Trace Negative 12/17 [facility] *ABN* (12/17/16 3:01 AM) URINE AND UA Glucose Negative Negative 12/17 [facility] (12/17/16 3:01 AM) URINE CHEM U Preg Positive Negative 12/17 [facility] *ABN* (12/17/16 3:01 AM) Preg < Preg < 14wks OBSTETRIC 1ST TRIMESTER ULTRASOUND 12/17 - [facility] 14wks Single gest /2016 - [place] Single w Transvag gest w US Transvag [...] Date Comments Source Respitory Rate 18 02/02/2017 [facility] Heart Rate 95 02/02/2017 [facility] Systolic (mm Hg) 100 02/02/2017 [facility] Diastolic (mm Hg) 64 02/02/2017 [facility] Respitory Rate 18 02/02/2017 [facility] Heart Rate 88 02/02/2017 [facility] Systolic (mm Hg) 107 02/02/2017 [facility] Diastolic (mm Hg) 63 02/02/2017 [facility] Weight 131.364 02/01/2017 [facility] Respitory Rate 16 02/01/2017 [facility] Temperature Oral (F) 98.6 F 02/01/2017 [facility] Systolic (mm Hg) 115 02/01/2017 [facility] Diastolic (mm Hg) 74 02/01/2017 [facility] Heart Rate 128 02/01/2017 [facility] Respitory Rate 16 01/16/2017 [facility] Systolic (mm Hg) 120 01/16/2017 [facility] Diastolic (mm Hg) 86 01/16/2017 [facility] Temperature Oral (F) 97.6 F 01/16/2017 [facility] Heart Rate 91 01/16/2017 [facility] Respitory Rate 18 01/16/2017 [facility] Heart Rate 99 01/16/2017 [facility] Temperature Oral (F) 98.0 F 01/16/2017 [facility] Height 157.48 cm 01/16/2017 [facility] BMI Calculated 51.32 01/16/2017 [facility] Weight 127.273 01/16/2017 [facility] Systolic (mm Hg) 136 01/16/2017 [facility] Diastolic (mm Hg) 86 01/16/2017 [facility] Systolic (mm Hg) 112 12/17/2016 [facility] Diastolic (mm Hg) 68 12/17/2016 [facility] Respitory Rate 18 12/17/2016 [facility] Temperature Oral (F) 98.1 F 12/17/2016 [facility] Heart Rate 88 12/17/2016 [facility] Weight 136.364 12/17/2016 [facility] BMI Calculated 54.99 12/17/2016 [facility] Height 157.48 cm 12/17/2016 [facility] Temperature Oral (F) 98.2 F 12/17/2016 [facility] Systolic (mm Hg) 110 12/17/2016 [facility] Diastolic (mm Hg) 69 12/17/2016 [facility] Heart Rate 107 12/17/2016 [facility] Respitory Rate 20 12/17/2016 [facility] Encounters Location Location Encounter Encounter Reason Attending ADM DC Status Source Details Type Number For Provider [facility] [id number] Campbell Mcdonald 12/17 12/17 Rashaun /2016 [facility] Emergency [id number] [place] 01/16 01/16 Rashaun Leon /2016 [facility] Emergency [id number] [place] 02/01 02/02 Rashaun Fox /2016 [facility] Procedures Procedure Code Date Perfomer Comments Source
--- OUTSIDE RECORDS SUMMARY | 2019-04-05 09:02 | XMS REPORT ---
:1990 [facility] Address [address] [place] [address] [address] [place] [address] Care Team Providers Name Role Phone Unavailable Unavailable Unavailable Problems This patient has no known problems. Allergies, Adverse Reactions, Alerts This patient has no known allergies or adverse reactions. Medications This patient has no known medications.
[2019-04-05 09:13] LABS: Absolute Monocytes 0.7 K/uL (0.1-1.3); Absolute Neutrophil 6.6 K/uL (1.8-8.0); Basophils % 0.4 % (0-1.3); Eosinophils % 1.7 % (0-4.4); Lymphocytes % 21.3 % (15.3-44.8); MPV 8.1 fL (7.6-11.3); Monocytes % 7.6 % (3.3-12.3); RBC Red Blood Cell Count 5.81 M/uL (3.86-4.86)
[2019-04-05 09:44] LABS: Urine Blood NEGATIVE (NEG); Urine Glucose NEGATIVE (NEG); Urine Protein NEGATIVE (NEG); Urine pH 7.5 (5.0-7.0)
[2019-04-05 10:22] LABS: ALT/SGPT 24 U/L (12-78); AST/SGOT 20 U/L (15-37); Albumin 3.3 g/dL (3.4-5.0); Alkaline Phosphatase 60 U/L (45-117); BUN Blood Urea Nitrogen 14 mg/dL (7-18); Bicarbonate 26 mmol/L (21-32); Bilirubin Direct 0.1 mg/dL (0-0.2); Bilirubin Total 0.4 mg/dL (0.2-1.0); Glucose Level 84 mg/dL (74-106); Lipase 110 U/L (73-393); Magnesium 1.9 mg/dL (1.8-2.4); Protein, Total 7.4 g/dL (6.4-8.2); Sodium Level 140 mmol/L (136-145)
--- NOTE | 2019-04-05 11:24 | RAD REPORT ---
EXAM DESCRIPTION: US - Transvaginal OB - 04/05/2019 10:54 am CLINICAL HISTORY: ABD CRAMPING, COMPARISON: OB Limited dated 07/27/2017 FINDINGS: A single gestational sac is seen within the uterus. The shape of the sac is within normal limits for gestational age. Within the sac a small yolk sac is seen. Based on mean sac diameter, nalini mated gestational age is 6 weeks 0 days. An embryo is not yet detected. Small 7 x 5 mm subchorionic bleed is seen along the lateral margin of the sac. The placenta is not yet developed due to early gestational age. The maternal adnexa and ovaries are within normal limits. Normal Doppler blood flow was demonstrated to both ovaries. IMPRESSION: Early IUP findings estimated at 6 weeks 0 days are present. However, an embryo is not ye t detected. Consider followup sonography in 10-12 days.
[2019-04-05 11:35] LABS: Anisocytosis 1+; Blood Morphology Comment NOTED (NOT SEEN); Hypochromasia 1+; Platelet Estimate ADEQ; Polychromasia 1+; Urine White Blood Cell Casts OK
--- NOTE | 2019-04-05 11:37 | ER ---
Nurse's Notes [facility] Name: Rachel Mares Age: 29 yrs Sex: Female : 1990 Arrival Date: 04/05/2019 Time: 08:12 Bed 17 Private MD: Diagnosis: Nausea and vomiting;Diarrhea, unspecified; related conditions, unspecified, first trimester Presentation: 04/05 08:34 Presenting complaint: Patient states: LUQ pain, cramps, diarrhea, vomiting X 1 week, iw denies fever, denies urinary symptoms. Transition of care: patient was not received from another setting of care. Onset of symptoms was March 29, 2019. Risk Assessment: Do you want to hurt yourself or someone else? Patient reports no desire to harm self or others. Initial Sepsis Screen: Does the patient meet any 2 criteria? No. Patient's initial sepsis screen is negative. Does the patient have a suspected source of infection? No. Patient's initial sepsis screen is negative. Care prior to arrival: None. 08:34 Method Of Arrival: Ambulatory iw 08:34 Acuity: VIPIN 3 iw Triage Assessment: 08:34 General: Appears in no apparent distress. uncomfortable, Behavior is calm, cooperative, hj appropriate for age. Pain: Complains of pain in abdomen. GI: Reports upper abdominal pain, diarrhea, nausea, vomiting. 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 - Social history:: Smoking status: Patient/guardian denies using tobacco. - Ebola Screening: : Patient negative for fever greater than or equal to 101.5 degrees Fahrenheit, and additional compatible Ebola Virus Disease symptoms Patient denies exposure to infectious person Patient denies travel to an Ebola-affected area in the 21 days before illness onset No symptoms or risks identified at this time. Screenin:34 Abuse screen: Denies threats or abuse. Denies injuries from another. Nutritional hj screening: No deficits noted. Tuberculosis screening: No symptoms or risk factors identified. Fall Risk None identified. Assessment: 08:34 GI: Bowel sounds present X 4 quads. Abd is soft. hj 08:34 General: Appears in no apparent distress. uncomfortable, Behavior is calm, cooperative, hj appropriate for age. Pain: Complains of pain in abdomen. Neuro: Level of Consciousness is awake, alert, obeys commands, Oriented to person, place, time, situation, Appropriate for age. Cardiovascular: Capillary refill < 3 seconds Patient's skin is warm and dry. Respiratory: Airway is patent Respiratory effort is even, unlabored, Respiratory pattern is regular, symmetrical. : No signs and/or symptoms were reported regarding the genitourinary system. EENT: No signs and/or symptoms were reported regarding the EENT system. Derm: No signs and/or symptoms reported regarding the dermatologic system. Musculoskeletal: No signs and/or symptoms reported regarding the musculoskeletal system. 09:30 Reassessment: Patient and/or family updated on plan of care and expected duration. Pain hj level reassessed. Patient is alert, oriented x 3, equal unlabored respirations, skin warm/dry/pink. awaiting results and POC;. 10:30 Reassessment: Patient and/or family updated on plan of care and expected duration. Pain hj level reassessed. Patient is alert, oriented x 3, equal unlabored respirations, skin warm/dry/pink. awaiting US;. 10:42 Reassessment: wheeled to US;. hj Vital Signs: 08:35 BP 124 / 85; Pulse 71; Resp 16; Temp 98.0(O); Pulse Ox 98% on R/A; Weight 136.08 kg; iw Height 5 ft. 3 in. (160.02 cm); Pain 7/10; 09:30 BP 115 / 73; Pulse 80; Resp 18; Pulse Ox 100% on R/A; hj 10:42 BP 128 / 80; Pulse 70; Resp 18; Pulse Ox 100% on R/A; hj 08:35 Body Mass Index 53.14 (136.08 kg, 160.02 cm) iw ED Course: 08:12 Patient arrived in ED. rg4 08:22 Norman Tatum PA is PHCP. cp 08:22 Jonah Lozada MD is Attending Physician. cp 08:29 Fili Sanderson, RN is Primary Nurse. hj 08:34 Patient has correct armband on for positive identification. Placed in gown. Bed in low hj position. Call light in reach. Side rails up X 1. 08:35 Triage completed. iw 08:37 Arm band placed on. iw 09:05 Initial lab(s) drawn, by me, sent to lab. Inserted saline lock: 22 gauge in left hj antecubital area, using aseptic technique. Blood collected. 10:14 Abo/rh Typing Sent. hj 10:54 US Transvaginal Ob In Process Unspecified. EDMS 11:43 No provider procedures requiring assistance completed. IV discontinued, intact, hj bleeding controlled, No redness/swelling at site. Pressure dressing applied. Administered Medications: 09:05 Drug: Zofran 4 mg Route: IVP; Site: left antecubital; hj 09:31 Follow up: Response: No adverse reaction hj 09:05 Drug: Pepcid 20 mg Route: IVP; Site: left antecubital; hj 09:31 Follow up: Response: No adverse reaction hj 09:31 Follow up: Response: No adverse reaction hj 09:05 Drug: Bentyl 20 mg Route: PO; hj 09:30 Follow up: Response: No adverse reaction hj 09:05 Drug: NS 0.9% 1000 ml Route: IV; Rate: 1 bolus; Site: left antecubital; hj 10:30 Follow up: IV Status: Completed infusion; IV Intake: 1000ml hj Intake: 10:30 IV: 1000ml; Total: 1000ml. hj Outcome: 11:37 Discharge ordered by MD. cp 11:44 Discharged to home ambulatory. hj 11:44 Condition: stable 11:44 Discharge instructions given to patient, Instructed on discharge instructions, follow up and referral plans. medication usage, Demonstrated understanding of instructions, follow-up care, medications, Prescriptions given X 2. 11:44 Patient left the ED. hj Signatures: Dispatcher [employer] EDMS Debora Kahn RN RN iw Joaquin, Henry, RN RN Norman Tatum PA PA cp Garcia, Rubi rg4
--- NOTE | 2019-04-05 11:37 | EDPHYS ---
Physician Documentation [facility] Name: Rachel Mares Age: 29 yrs Sex: Female : 1990 Arrival Date: 04/05/2019 Time: 08:12 Bed 17 Private MD: ED Physician Jonah Lozada HPI: 04/05 08:30 This 29 yrs old Black Female presents to ER via Ambulatory with complaints of Abdominal cp Pain, Vomiting/Diarrhea. 08:30 The patient presents with abdominal pain left side. cp 08:30 Onset: The symptoms/episode began/occurred 1 week(s) ago. The symptoms do not radiate. cp Associated signs and symptoms: Pertinent positives: diarrhea, nausea, Pertinent negatives: blood in stools, constipation, dysuria, fever, vaginal discharge, active vomiting, vaginal discharge. 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 - Social history:: Smoking status: Patient/guardian denies using tobacco. - Ebola Screening: : Patient negative for fever greater than or equal to 101.5 degrees Fahrenheit, and additional compatible Ebola Virus Disease symptoms Patient denies exposure to infectious person Patient denies travel to an Ebola-affected area in the 21 days before illness onset No symptoms or risks identified at this time. ROS: 08:35 Eyes: Negative for injury, pain, redness, and discharge. cp 08:35 Constitutional: Negative for body aches, chills, fever, poor PO intake. 08:35 ENT: Negative for drainage from ear(s), ear pain, sore throat, difficulty swallowing, difficulty handling secretions. 08:35 Cardiovascular: Negative for chest pain, edema, palpitations. 08:35 Respiratory: Negative for cough, shortness of breath, wheezing. 08:35 Abdomen/GI: Positive for nausea, diarrhea, abdominal cramps, Negative for constipation, active vomiting. 08:35 Back: Negative for pain at rest, pain with movement, radiated pain. 08:35 : Negative for urinary symptoms, pelvic pain, vaginal bleeding, vaginal discharge. 08:35 Skin: Negative for cellulitis, rash. 08:35 Neuro: Negative for altered mental status, headache, weakness. 08:35 All other systems are negative. Exam: 08:50 Constitutional: The patient appears in no acute distress, alert, awake, non-toxic, well cp developed, well nourished, obese. 08:50 Head/Face: Normocephalic, atraumatic. cp 08:50 Eyes: Periorbital structures: appear normal, Conjunctiva: normal, no exudate, no injection, Sclera: no appreciated abnormality, Lids and lashes: appear normal, bilaterally. 08:50 ENT: External ear(s): are unremarkable, Nose: is normal, Mouth: Lips: moist, Oral mucosa: moist, Posterior pharynx: is normal, airway is patent, no erythema, no exudate. 08:50 Chest/axilla: Inspection: normal, Palpation: is normal, no crepitus, no tenderness. 08:50 Cardiovascular: Rate: normal, Rhythm: regular. 08:50 Respiratory: the patient does not display signs of respiratory distress, Respirations: normal, no use of accessory muscles, no retractions, no splinting, no tachypnea, labored breathing, is not present, Breath sounds: are clear throughout, no decreased breath sounds, no stridor, no wheezing. 08:50 Abdomen/GI: Inspection: obese Bowel sounds: active, all quadrants, Palpation: soft, in all quadrants, mild abdominal tenderness, in the left upper quadrant and left lower quadrant, rebound tenderness, is not appreciated, involuntary guarding, is not appreciated. 08:50 Back: CVA tenderness, is absent. 08:50 Skin: no rash present. Vital Signs: 08:35 BP 124 / 85; Pulse 71; Resp 16; Temp 98.0(O); Pulse Ox 98% on R/A; Weight 136.08 kg; iw Height 5 ft. 3 in. (160.02 cm); Pain 7/10; 09:30 BP 115 / 73; Pulse 80; Resp 18; Pulse Ox 100% on R/A; hj 10:42 BP 128 / 80; Pulse 70; Resp 18; Pulse Ox 100% on R/A; hj 08:35 Body Mass Index 53.14 (136.08 kg, 160.02 cm) iw MDM: 08:26 Patient medically screened. cp 09:00 Differential diagnosis: diverticulitis, gastritis, Pelvic Inflammatory Disease, cp Ureterolithiasis, urinary tract infection, , diverticulitis. 11:35 Data reviewed: vital signs, nurses notes, lab test result(s), radiologic studies, cp ultrasound. 11:35 Counseling: I had a detailed discussion with the patient and/or guardian regarding: the cp historical points, exam findings, and any diagnostic results supporting the discharge/admit diagnosis, lab results, radiology results, the need for outpatient follow up, an OB/Gyne specialist, to return to the emergency department if symptoms worsen or persist or if there are any questions or concerns that arise at home. Response to treatment: the patient's symptoms have mildly improved after treatment, and as a result, I will discharge patient. ED course: VSS. Discussed results of labs and US that showed 6 week IUP. No vomiting observed while in ED. Will discharge to home for continued monitoring. 04/05 08:32 Order name: Basic Metabolic Panel; Complete Time: 10:33 cp 04/05 08:32 Order name: CBC with Diff cp 04/05 09:48 Interpretation: Normal except: RBC 5.81; MCV 67.1; MCH 20.6; MCHC 30.7; RDW 17.6. cp 04/05 08:32 Order name: Creatinine for Radiology; Complete Time: 09:47 cp 04/05 08:32 Order name: Hepatic Function; Complete Time: 10:33 cp 04/05 08:32 Order name: Lipase; Complete Time: 10:33 cp 04/05 08:32 Order name: Magnesium; Complete Time: 10:33 cp 04/05 09:15 Order name: HCG-Quantitative; Complete Time: 10:33 cp 04/05 09:17 Order name: CBC Smear Scan EDMS 04/05 09:30 Order name: Urine Dipstick--Ancillary (enter results); Complete Time: 09:48 bd 04/05 09:48 Interpretation: Normal except: UPH 7.5. cp 04/05 09:30 Order name: Urine --Ancillary (enter results); Complete Time: 09:47 bd 04/05 09:47 Interpretation: URINE PREG POS; Reviewed. 04/05 09:57 Order name: Abo/rh Typing; Complete Time: 11:15 cp 04/05 11:15 Interpretation: Reviewed. 04/05 10:37 Order name: US Transvaginal Ob; Complete Time: 11:28 cp 04/05 08:32 Order name: IV Saline Lock; Complete Time: 09:09 cp 04/05 08:32 Order name: Labs collected and sent; Complete Time: 09:09 04/05 08:32 Order name: Urine Dipstick-Ancillary (obtain specimen); Complete Time: 09:30 cp 04/05 08:32 Order name: Urine Test (obtain specimen); Complete Time: 09:30 cp Administered Medications: 09:05 Drug: Zofran 4 mg Route: IVP; Site: left antecubital; hj 09:31 Follow up: Response: No adverse reaction hj 09:05 Drug: Pepcid 20 mg Route: IVP; Site: left antecubital; hj 09:31 Follow up: Response: No adverse reaction hj 09:31 Follow up: Response: No adverse reaction hj 09:05 Drug: Bentyl 20 mg Route: PO; hj 09:30 Follow up: Response: No adverse reaction hj 09:05 Drug: NS 0.9% 1000 ml Route: IV; Rate: 1 bolus; Site: left antecubital; hj 10:30 Follow up: IV Status: Completed infusion; IV Intake: 1000ml hj Disposition: 15:11 Co-signature as Attending Physician, Jonah Lozada MD. rn Disposition: 04/05/19 11:37 Discharged to Home. Impression: Nausea and vomiting, Diarrhea, unspecified, related conditions, unspecified, first trimester. - Condition is Stable. - Discharge Instructions: Abdominal Pain During , Food Choices to Help Relieve Diarrhea, Adult, Diarrhea, Adult, Nausea and Vomiting, Adult. - Prescriptions for Diclegis 10- 10 mg Oral tablet,delayed release (DR/EC) - take 1 tablet by ORAL route 3 times per day As needed 1 tablet before each meal and 2 tablets at bedtime; 60 tablet. Pepcid 20 mg Oral Tablet - take 1 tablet by ORAL route every 12 hours for 10 days; 20 tablet. - Medication Reconciliation Form, Thank You Letter, Antibiotic Education, Prescription Opioid Use form. - Work release form (04/05/19 11:49). ms - Follow up: Private Physician; When: 10 - 14 days; Reason: Recheck today's complaints. - Problem is new. - Symptoms have improved. Signatures: Dispatcher [employer] EDID Debora Kahn RN RN iw Nieto, Roman, MD MD rn Joaquin, Henry, RN RN hj Page, Corey, PA PA cp Solis, Maria ms Corrections: (The following items were deleted from the chart) 09:17 09:15 RH TYPE+[id number].LAB.BRZ ordered. EDMS EDMS 09:28 08:33 Abdomen Pelvis W Con+CT.RAD.BRZ ordered. EDID EDMS 11:44 11:37 04/05/2019 11:37 Discharged to Home. Impression: Nausea and vomiting; Diarrhea, hj unspecified; related conditions, unspecified, first trimester. Condition is Stable. Forms are Medication Reconciliation Form, Thank You Letter, Antibiotic Education, Prescription Opioid Use. Follow up: Private Physician; When: 10 - 14 days; Reason: Recheck today's complaints. Problem is new. Symptoms have improved. cp
[2019-04-05 19:03] VITALS: O2SAT 100
[2019-04-05 19:05] VITALS: TEMP 98
[2019-04-05 19:06] VITALS: BP 128/80
== END 2019-04-05 11:44 | disposition home or self-care (01) ==
LOC: ER 08:10
DX: O21.9 Vomiting of pregnancy, unspecified (principal); Z3A.01 Less than 8 weeks gestation of pregnancy
CPT/HCPCS: 36415; 76817; 80048; 80076; 81003; 81025; 83690; 83735; 84702; 85025; 86900; 86901; 96361; 96374; 96375; 99284; J2405; J7030

== ENCOUNTER 2019-05-04 11:55 | Emergency (ER) | payer OTHER, SELFPAY ==
--- OUTSIDE RECORDS SUMMARY | 2019-05-04 12:01 | XMS REPORT ---
:1990 [facility] Address [address] [place] [address] [address] [place] [address] Care Team Providers Name Role Phone Unavailable Unavailable Unavailable Problems This patient has no known problems. Allergies, Adverse Reactions, Alerts This patient has no known allergies or adverse reactions. Medications This patient has no known medications.
--- OUTSIDE RECORDS SUMMARY | 2019-05-04 12:01 | XMS REPORT | Continuity of Care Document ---
:1990 Author Organization Interface Problems Problem Status Onset Classification Date Comments Source Date Reported Discharge 02/04/2017 [facility] Diagnosis: BV 7 ABDOMINAL PAIN Active [facility] - 7 [place] Discharge 01/19/2017 [facility] Diagnosis: 7 Accidental fall Discharge 01/19/2017 [facility] Diagnosis: 7 Abdominal pain during in first trimester 8 WKS Active [facility] PREG/FALL 7 Discharge 12/20/2016 [facility] Diagnosis: 7 Abdominal pain affecting Discharge 12/20/2016 [facility] Diagnosis: 7 Acute UTI PELVIC PAIN Active [facility] 7 [place] Medications Medication Details Route Status Patient Ordering Order Source Instructions Provider Date Tylenol 650 mg, Route: Inactive PO, Drug form: 2016 [place] TAB, ONCE, Dosing Weight 131.364, kg, Priority: STAT, Start date: 02/01/17 23:06:00 CDT, Stop date: 02/01/17 23:06:00 CDT Metronidazole 500 mg=1 tab, Active 500 MG Oral PO, BID, X 7 2016 [place] Tablet [Flagyl] day, # 14 tab, 0 Refill(s) Acetaminophen 650 mg, 2 tab, Inactive Route: PO, 2016 [place] Drug form: TAB, ONCE, Dosing Weight 127.273, kg, Priority: STAT, Start date: 02/01/17 17:18:00 CDT, Stop date: 02/01/17 17:18:00 CDTNotes: Do not exceed 4 gm/day. (Same as: Tylenol) Saline Flush 10 mL, Route: No Longer 0.9% IVP, Drug Active 2016 [place] Form: INJ, Dosing Weight 127.273, kg, PRN, PRN Line Flush, Start date: 02/01/17 17:18:00 CDT, Duration: 30 day, Stop date: 03/03/17 17:17:00 CDTNotes: (Same as: BD Posiflush) Saline Flush 10 mL, Route: Inactive 0.9% IVP, Drug 2016 [place] Form: INJ, Dosing Weight 127.273, kg, PRN, PRN Line Flush, Start date: 01/16/17 10:51:00 [employer], Duration: 30 day, Stop date: 02/15/17 11:50:00 CDTNotes: preservative free. Cephalexin 500 500 mg=1 cap, Active MH MG Oral Capsule PO, BID, X 7 2016 [place] [Keflex] , # 14 cap, 0 Refill(s) Sodium Chloride 1,000 mL, Inactive 0.154 MEQ/ML 1,000 ml/hr, 2016 [place] Injectable Infuse Over: 1 Solution hr, Route: IV, 1,000, Drug form: INJ, ONCE, Priority: STAT, Dosing Weight 136.364 kg, Start date: 12/17/16 4:37:00 S[employer], Duration: 1 doses or times, Stop date: 12/17/16 4:37:00 [employer] Sodium Chloride 1,000 mL, Inactive 0.154 MEQ/ML 1,000 ml/hr, 2016 [place] Injectable Infuse Over: 1 Solution hr, Route: IV, 1,000, Drug form: INJ, ONCE, Priority: STAT, Dosing Weight 136.364 kg, Start date: 12/17/16 2:27:00 S[employer], Duration: 1 doses or times, Stop date: 12/17/16 2:27:00 [employer] Allergies, Adverse Reactions, Alerts Substance Category Reaction Severity Reaction Status Date Comments Source type Reported Immunizations Immunization Date Given Site Status Last Updated Comments Source Results Order Name Results Value Reference Date Interpretation Comments Source Range MOLECULAR N gonorrhea Negative Negative 02/02 DIAGNOSTIC by Amp Det /2016 [place] ([place]TIMA) *NA* (02/01/17 9:57 PM) MOLECULAR Source Endocervix 02/02 DIAGNOSTIC [place]TIM[place] /2016 [place] *NA* (02/01/17 9:57 PM) MOLECULAR C Negative Negative 02/02 DIAGNOSTIC trachomatis [place] by Amp Det *NA* (APTIMA) (02/01/17 9:57 PM) [place] [address] 02/02 OGY mIU/mL [place] URINE AND UA Blood Negative Negative 02/02 STOOL [place] (02/01/17 8:01 PM) URINE AND UA Ketones Negative Negative 02/02 [place] *NA* (02/01/17 8:01 PM) URINE AND UA Bili Negative Negative 02/02 STOOL [place] *NA* (02/01/17 8:01 PM) URINE AND UA 0.2 EU/dL 0.1 - 1.0 02/02 STOOL Urobilinogen [place] URINE AND UA Nitrite Negative Negative 02/02 STOOL [place] (02/01/17 8:01 PM) URINE AND UA Sq Epi Few /LPF Few /LPF 02/02 [place] URINE AND UA Leuk Est Negative Negative 02/02 STOOL [place] (02/01/17 8:01 PM) URINE AND UA Bacteria Few /HPF None Seen 02/02 STOOL /HPF [place] URINE AND UA RBC 0-2 /HPF 0 - 2 02/02 [place] URINE AND UA Glucose Negative Negative 02/02 STOOL [place] (02/01/17 8:01 PM) URINE AND UA Protein Negative Negative 02/02 STOOL [place] (02/01/17 8:01 PM) URINE AND UA pH 6.0 5.0 - 8.0 02/02 [place] URINE AND UA Spec Grav >=1.030 <=1.030 02/02 [place] *ABN* (02/01/17 8:01 PM) URINE AND UA Turbidity Clear Clear 02/02 [place] (02/01/17 8:01 PM) URINE AND UA Color Yellow Yellow 02/02 STOOL [place] *NA* (02/01/17 8:01 PM) URINE AND UA WBC 0-2 /HPF None Seen 02/02 STOOL /HPF [place] CHEM PANEL eGFR 139 02/01 Result Comment: [...] is not recommended in the following populations: [place] 3m2 Individuals with unstable creatinine concentrations, including [...] Lvl 107 mg/dL 70 - 99 02/01 [place] CHEM PANEL Sodium Lvl 138 meq/L 135 - 145 02/01 [place] CHEM PANEL BUN 16 mg/dL 7 - 22 02/01 [place] CHEM PANEL Creatinine 0.70 mg/dL 0.50 - 02/01 MH Lvl 1.40 [place] CHEM PANEL Calcium Lvl 7.9 mg/dL 8.5 - 10.5 02/01 [place] CHEM PANEL Chloride Lvl 106 meq/L 95 - 109 02/01 [place] CHEM PANEL CO2 22 meq/L 24 - 32 02/01 [place] CHEM PANEL Potassium 4.3 meq/L 3.5 - 5.1 02/01 Lvl [place] CHEM PANEL AGAP 14.3 meq/L 10.0 - 02/01 MH 20.0 [place] BLOOD BANK ABO/Rh A POS 02/01 RESULTS [place] HEMATOLOGY Monocytes # 0.8 K/CMM 0.0 - 0.8 02/01 [place] HEMATOLOGY Lymphocytes 3.5 K/CMM 1.0 - 5.5 02/01 # [place] HEMATOLOGY Eosinophils 0.1 K/CMM 0.0 - 0.5 02/01 # [place] HEMATOLOGY Basophils # 0.1 K/CMM 0.0 - 0.2 02/01 [place] HEMATOLOGY Microcyte 3+ None Seen 02/01 [place] *NA* (02/01/17 6:02 PM) HEMATOLOGY Anisocyte 1+ None Seen 02/01 [place] *ABN* (02/01/17 6:02 PM) HEMATOLOGY Plt Morph Normal 02/01 [place] (02/01/17 6:02 PM) HEMATOLOGY Segs 62.3 % 45.0 - 02/01 MH 75.0 [place] HEMATOLOGY Eosinophils 1.1 % 0.0 - 4.0 02/01 [place] HEMATOLOGY Basophils 0.5 % 0.0 - 1.0 02/01 [place] HEMATOLOGY Monocytes 6.9 % 2.0 - 12.0 02/01 [place] HEMATOLOGY Lymphocytes 29.2 % 20.0 - 02/01 MH 40.0 [place] HEMATOLOGY Segs-Bands # 7.5 K/CMM 1.5 - 8.1 02/01 [place] HEMATOLOGY Platelet 297 K/CMM 133 - 450 02/01 [place] HEMATOLOGY RDW 15.7 % 11.5 - 02/01 MH 14.5 [place] HEMATOLOGY MCHC 31.4 g/dL 32.0 - 02/01 MH 36.0 [place] HEMATOLOGY MCV 65.4 fL 80.0 - 02/01 MH 98.0 [place] HEMATOLOGY MCH 20.5 pg 27.0 - 02/01 MH 31.0 [place] HEMATOLOGY Hct 38.7 % 36.0 - 02/01 MH 48.0 [place] HEMATOLOGY Hgb 12.1 g/dL 12.0 - 02/01 MH 16.0 [place] HEMATOLOGY WBC X 10x3 12.0 K/CMM 3.7 - 10.4 02/01 [place] HEMATOLOGY RBC X 10x6 5.91 M/CMM 4.20 - 02/01 MH 5.40 [place] HEMATOLOGY MPV 8.0 fL 7.4 - 10.4 02/01 [place] < Study: Pelvic ultrasound 02/01 [facility] < 14 weeks 14 weeks /2016 - [place] single single gestation gestation US US History: [...] *NA* (01/16/17 11:02 AM) [place]CRIN[place] [id number] 01/16 OGY mIU/mL /2016 [facility] MPV 7.8 fL 7.4 - 10.4 01/16 [facility] Hgb 11.9 g/dL 12.0 - 01/16 16.0 [facility] Hct 38.2 % 36.0 - 01/16 48.0 [facility] MCHC 31.1 g/dL 32.0 - 01/16 36.0 [facility] HEMATOLOGY RBC 5.86 M/CMM 4.20 - 01/16 MH 5.40 /2016 [facility] HEMATOLOGY WBC 13.9 K/CMM 3.7 - 10.4 01/16 /2016 [facility] HEMATOLOGY MCV 65.2 fL 80.0 - 01/16 98.0 /2016 [facility] HEMATOLOGY MCH 20.3 pg 27.0 - 01/16 31.0 [facility] Platelet 282 K/CMM 133 - 450 01/16 /2016 [facility] RDW 16.3 % 11.5 - 01/16 14.5 /2016 [facility] HEMATOLOGY Segs 67.8 % 45.0 - 01/16 75.0 /2016 [facility] Lymphocytes 23.8 % 20.0 - 01/16 40.0 /2016 [facility] HEMATOLOGY Monocytes # 1.0 K/CMM 0.0 - 0.8 01/16 [facility] HEMATOLOGY Eosinophils 0.4 % 0.0 - 4.0 01/16 [facility] HEMATOLOGY Monocytes 7.5 % 2.0 - 12.0 01/16 [facility] Segs-Bands # 9.5 K/CMM 1.5 - 8.1 01/16 [facility] Lymphocytes 3.3 K/CMM 1.0 - 5.5 01/16 [...] gestational age 10 weeks 0 days. SL: [id number] MOLECULAR Source Vaginal 12/17 DIAGNOSTIC [place]TIMA [place] *NA* (12/17/16 3:12 AM) MOLECULAR C Negative Negative 12/17 DIAGNOSTIC trachomatis [place] by Amp Det *NA* (APTIMA) (12/17/16 3:12 AM) MOLECULAR N gonorrhea Negative Negative 12/17 DIAGNOSTIC by Amp Det /2016 [place] (APTIMA) *NA* (12/17/16 3:12 AM) BLOOD BANK ABO/Rh A POS 12/17 RESULTS [place] CHEM PANEL eGFR 106 12/17 Result Comment: [...] is not recommended in the following populations: [place] 3m2 Individuals with unstable creatinine concentrations, including [...] 14 unit/L 0 - 37 12/17 TRANSAMINASE [place] CHEM PANEL Total 7.3 g/dL 6.4 - 8.4 12/17 Protein [place] CHEM PANEL Calcium Lvl 8.4 mg/dL 8.5 - 10.5 12/17 [place] CHEM PANEL CO2 29 meq/L 24 - 32 12/17 [place] CHEM PANEL Chloride Lvl 105 meq/L 95 - 109 12/17 [place] CHEM PANEL Alk Phos 60 unit/L 39 - 136 12/17 [place] CHEM PANEL ALANINE 20 unit/L 0 - 65 12/17 AMINOTRANS [place] RASE CHEM PANEL Albumin Lvl 3.1 g/dL 3.5 - 5.0 12/17 [place] CHEM PANEL Creatinine 0.87 mg/dL 0.50 - 12/17 MH Lvl 1.40 [place] CHEM PANEL BUN 17 mg/dL 7 - 22 12/17 [place] CHEM PANEL Glucose Lvl 95 mg/dL 70 - 99 12/17 [place] CHEM PANEL Bili Total 0.2 mg/dL 0.2 - 1.3 12/17 [place] CHEM PANEL Potassium 3.8 meq/L 3.5 - 5.1 12/17 MH Lvl [place] CHEM PANEL Sodium Lvl 142 meq/L 135 - 145 12/17 [place] CHEM PANEL A/G Ratio 0.7 0.7 - 1.6 12/17 [place] CHEM PANEL B/C Ratio 20 6 - 25 12/17 [place] CHEM PANEL AGAP 11.8 meq/L 10.0 - 12/17 MH 20.0 [place] CHEM PANEL Globulin 4.2 g/dL 2.7 - 4.2 12/17 [place] ENDOCRINOL hCG Tot 3316 12/17 OGY mIU/mL [place] HEMATOLOGY Target Cell few 12/17 [place] HEMATOLOGY Hyperseg few 12/17 [place] HEMATOLOGY Polychrom rare 12/17 [place] HEMATOLOGY Stomatocyte few 12/17 [place] HEMATOLOGY Eosinophils 0.9 % 0.0 - 4.0 12/17 [place] HEMATOLOGY Basophils 0.6 % 0.0 - 1.0 12/17 [place] HEMATOLOGY Segs-Bands # 6.8 K/CMM 1.5 - 8.1 12/17 [place] HEMATOLOGY Lymphocytes 34.8 % 20.0 - 12/17 MH 40.0 [place] HEMATOLOGY Monocytes 8.2 % 2.0 - 12.0 12/17 [place] HEMATOLOGY Eosinophils 0.1 K/CMM 0.0 - 0.5 12/17 # /2016 [place] HEMATOLOGY Basophils # 0.1 K/CMM 0.0 - 0.2 12/17 [place] HEMATOLOGY Microcyte 3+ None Seen 12/17 [place] *NA* (12/17/16 3:01 AM) HEMATOLOGY Lymphocytes 4.3 K/CMM 1.0 - 5.5 12/17 # /2016 [place] HEMATOLOGY Monocytes # 1.0 K/CMM 0.0 - 0.8 12/17 [place] HEMATOLOGY Segs 55.5 % 45.0 - 12/17 MH 75.0 [place] HEMATOLOGY MPV 8.2 fL 7.4 - 10.4 12/17 [place] HEMATOLOGY Platelet 267 K/CMM 133 - 450 12/17 [place] HEMATOLOGY Hgb 12.1 g/dL 12.0 - 12/17 MH 16.0 [place] HEMATOLOGY RBC X 10x6 5.95 M/CMM 4.20 - 12/17 MH 5.40 [place] HEMATOLOGY WBC X 10x3 12.2 K/CMM 3.7 - 10.4 12/17 [place] HEMATOLOGY RDW 16.2 % 11.5 - 12/17 MH 14.5 [place] HEMATOLOGY MCHC 30.9 g/dL 32.0 - 12/17 MH 36.0 [place] HEMATOLOGY MCH 20.3 pg 27.0 - 12/17 MH 31.0 [place] HEMATOLOGY MCV 65.8 fL 80.0 - 12/17 MH 98.0 [place] HEMATOLOGY Hct 39.1 % 36.0 - 12/17 MH 48.0 [place] URINE AND UA Mucus None Seen None Seen 12/17 STOOL [place] (12/17/16 3:01 AM) URINE AND UA Bacteria Occasional None Seen 12/17 STOOL /HPF /HPF /2016 [place] URINE AND UA Leuk Est Negative Negative 12/17 STOOL [place] (12/17/16 3:01 AM) URINE AND UA Sq Epi Occasional Few /LPF 12/17 STOOL /LPF /2016 [place] URINE AND UA Nitrite Negative Negative 12/17 [place] (12/17/16 3:01 AM) URINE AND UA WBC 0-2 /HPF None Seen 12/17 STOOL /HPF [place] URINE AND UA RBC 0-2 /HPF 0 - 2 12/17 [place] URINE AND UA Color Yellow Yellow 12/17 [place] *NA* (12/17/16 3:01 AM) URINE AND UA Turbidity Clear Clear 12/17 [place] (12/17/16 3:01 AM) URINE AND UA 0.2 EU/dL 0.1 - 1.0 12/17 [facility] Urobilinogen [place] URINE AND UA Blood Negative Negative 12/17 [place] (12/17/16 3:01 AM) URINE AND UA Bili Negative Negative 12/17 [place] *NA* (12/17/16 3:01 AM) URINE AND UA pH 6.0 5.0 - 8.0 12/17 [place] URINE AND UA Protein Negative Negative 12/17 [place] (12/17/16 3:01 AM) URINE AND UA Spec Grav >=1.030 <=1.030 12/17 [place] *ABN* (12/17/16 3:01 AM) URINE AND UA Ketones Trace Negative 12/17 [place] *ABN* (12/17/16 3:01 AM) URINE AND UA Glucose Negative Negative 12/17 [place] (12/17/16 3:01 AM) URINE CHEM U Preg Positive Negative 12/17 [place] *ABN* (12/17/16 3:01 AM) Preg < Preg < 14wks OBSTETRIC 1ST TRIMESTER ULTRASOUND 12/17 - [facility] 14wks Single gest /2016 - [place] Single w Transvag gest w US Transvag [...] Date Comments Source Respitory Rate 18 02/02/2017 [facility] Heart Rate 95 02/02/2017 [facility] Systolic (mm Hg) 100 02/02/2017 [facility] Diastolic (mm Hg) 64 02/02/2017 [facility] Respitory Rate 18 02/02/2017 [facility] Heart Rate 88 02/02/2017 [facility] Systolic (mm Hg) 107 02/02/2017 [facility] Diastolic (mm Hg) 63 02/02/2017 [facility] Weight 131.364 02/01/2017 [facility] Respitory Rate 16 02/01/2017 [facility] Temperature Oral (F) 98.6 F 02/01/2017 [facility] Systolic (mm Hg) 115 02/01/2017 [facility] Diastolic (mm Hg) 74 02/01/2017 [facility] Heart Rate 128 02/01/2017 [facility] Respitory Rate 16 01/16/2017 [facility] Systolic (mm Hg) 120 01/16/2017 [facility] Diastolic (mm Hg) 86 01/16/2017 [facility] Temperature Oral (F) 97.6 F 01/16/2017 [facility] Heart Rate 91 01/16/2017 [facility] Respitory Rate 18 01/16/2017 [facility] Heart Rate 99 01/16/2017 [facility] Temperature Oral (F) 98.0 F 01/16/2017 [facility] Height 157.48 cm 01/16/2017 [facility] BMI Calculated 51.32 01/16/2017 [facility] Weight 127.273 01/16/2017 [facility] Systolic (mm Hg) 136 01/16/2017 [facility] Diastolic (mm Hg) 86 01/16/2017 [facility] Systolic (mm Hg) 112 12/17/2016 [facility] Diastolic (mm Hg) 68 12/17/2016 [facility] Respitory Rate 18 12/17/2016 [facility] Temperature Oral (F) 98.1 F 12/17/2016 [facility] Heart Rate 88 12/17/2016 [facility] Weight 136.364 12/17/2016 [facility] BMI Calculated 54.99 12/17/2016 [facility] Height 157.48 cm 12/17/2016 [facility] Temperature Oral (F) 98.2 F 12/17/2016 [facility] Systolic (mm Hg) 110 12/17/2016 [facility] Diastolic (mm Hg) 69 12/17/2016 [facility] Heart Rate 107 12/17/2016 [facility] Respitory Rate 20 12/17/2016 [facility] Encounters Location Location Encounter Encounter Reason Attending ADM DC Status Source Details Type Number For Provider Date [facility] [id number] Campbell Mcdonald 12/17 12/17 Rashaun /2016 [facility] Emergency [id number] [place] 01/16 01/16 Rashaun Leon /2016 [facility] Emergency [id number] [place] 02/01 02/02 Rashaun Fox /2016 [facility] Procedures Procedure Code Date Perfomer Comments Source
[2019-05-04 13:38] LABS: Urine Blood NEGATIVE (NEG); Urine Glucose NEGATIVE (NEG); Urine Protein NEGATIVE (NEG); Urine Specific Gravity >1.030 (1.005-1.030); Urine pH 5.5 (5.0-7.0)
[2019-05-04 14:03] LABS: Absolute Lymphocytes (CBC) 2.9 K/uL (0.7-4.9); Absolute Monocytes 0.8 K/uL (0.1-1.3); Absolute Neutrophil 8.7 K/uL (1.8-8.0); Basophils % 0.4 % (0-1.3); Eosinophils % 0.4 % (0-4.4); Hematocrit 41.6 % (36.0-45.0); Lymphocytes % 23.1 % (15.3-44.8); MPV 8.2 fL (7.6-11.3); Monocytes % 6.4 % (3.3-12.3); RBC Red Blood Cell Count 6.18 M/uL (3.86-4.86)
[2019-05-04 14:08] LABS: ALT/SGPT 26 U/L (12-78); AST/SGOT 18 U/L (15-37); Albumin 3.1 g/dL (3.4-5.0); Alkaline Phosphatase 58 U/L (45-117); BUN Blood Urea Nitrogen 11 mg/dL (7-18); Bicarbonate 25 mmol/L (21-32); Bilirubin Direct < 0.1 mg/dL (0-0.2); Bilirubin Total 0.2 mg/dL (0.2-1.0); Glucose Level 88 mg/dL (74-106); Lipase 112 U/L (73-393); Potassium 3.6 mmol/L (3.5-5.1); Protein, Total 7.8 g/dL (6.4-8.2); Sodium Level 138 mmol/L (136-145)
[2019-05-04] MEDS ORDERED: NA CHLORIDE 0.9% 1,000 ML ONE (14:08)
[2019-05-04] MEDS ORDERED: METOCLOPRAMIDE 10 MG/2mL INJ ONE (14:08)
[2019-05-04] MEDS ORDERED: ONDANSETRON 4 MG/2 ML VIAL ONE (14:08)
[2019-05-04] MEDS ORDERED: FAMOTIDINE 20 MG/2 ML VIAL IV ONE (14:08)
[2019-05-04 14:54] LABS: Urine White Blood Cell Casts OK
[2019-05-04 14:55] LABS: Anisocytosis 1+; Blood Morphology Comment NOTED (NOT SEEN); Hypochromasia 1+; Platelet Estimate ADEQ; Polychromasia 1+
--- NOTE | 2019-05-04 14:59 | RAD REPORT ---
EXAM DESCRIPTION: US - Abdomen Exam Limited - 05/04/2019 2:43 pm CLINICAL HISTORY: Abdominal pain COMPARISON: None. FINDINGS: Gallbladder is partially contracted. No gallstones, sludge or other abnormalities within t he gallbladder lumen. There is no wall thickening or pericholecystic fluid. No common duct stone or biliary tree dilatation identified. IMPRESSION: Normal gallbladder and biliary tree ultrasound.
--- NOTE | 2019-05-04 15:02 | RAD REPORT ---
EXAM DESCRIPTION: US - Transvaginal OB - 05/04/2019 2:43 pm CLINICAL HISTORY: , abdominal and pelvic pain COMPARISON: None. FINDINGS: A normal shaped intrauterine gestational sac is identifiable. No intrauterine hematoma or suspicious mass. There are 2 anterior uterine fibroids present up to 2.9 cm in size. Uterus overall m easures 12.5 x 7.9 x 8.5 cm. This single intrauterine gestation shows heart rate of 188 BPM. [place]-rump length measurement corresp onds to 10 week 2 day age. Calculated ZAHIDA is 11/28/2019. Neither ovary was identifiable. No adnexal mass seen. Small amount of free fluid in the cul de sac. IMPRESSION: Single 10 week 2 day IUP with heart rate 188 BPM. No hematoma or suspicious intrauterine finding. Two anterior uterine fibroids are present up to 2.9 cm in size. Small quantity of free fluid in the cul de sac. Ovaries were not identified but no adnexal mass seen.
--- NOTE | 2019-05-04 15:28 | EDPHYS ---
Physician Documentation [facility] Name: Rachel Mares Age: 29 yrs Sex: Female : 1990 Arrival Date: 05/04/2019 Time: 12:00 Bed 14 Private MD: ED Physician Norman Shetty HPI: 05/04 12:50 This 29 yrs old Black Female presents to ER via Ambulatory with complaints of Headache, cp Abdominal Pain, Nausea/Vomiting/Diarrhea. 12:50 The patient complains of pain to the top of head. cp 12:50 The patient describes the headache as aching. cp 12:50 Onset: The symptoms/episode began/occurred today. The patient presents with abdominal cp pain that is diffuse. Onset: The symptoms/episode began/occurred 2 week(s) ago. Associated signs and symptoms: Pertinent positives: nausea and vomiting, diarrhea, Pertinent negatives: blood in stools, constipation, dysuria, fever, hematuria, vaginal discharge, vomiting blood. BRANCHER: 12:40 LMP N/A - . tw2 Historical: - Allergies: 12:09 No Known Allergies; sg - PSHx: 12:09 ; sg - Immunization history:: Adult Immunizations up to date. - Social history:: Smoking status: Patient/guardian denies using tobacco. - Ebola Screening: : Patient negative for fever greater than or equal to 101.5 degrees Fahrenheit, and additional compatible Ebola Virus Disease symptoms Patient denies exposure to infectious person Patient denies travel to an Ebola-affected area in the 21 days before illness onset No symptoms or risks identified at this time. ROS: 13:05 Constitutional: Negative for body aches, chills, fever, poor PO intake. cp 13:05 Eyes: Negative for injury, pain, redness, and discharge. cp 13:05 ENT: Negative for drainage from ear(s), ear pain, sore throat, difficulty swallowing, difficulty handling secretions. 13:05 Cardiovascular: Negative for chest pain, edema, palpitations. 13:05 Respiratory: Negative for cough, shortness of breath, wheezing. 13:05 Abdomen/GI: Positive for abdominal pain, nausea, vomiting, and diarrhea, Negative for constipation, black/tarry stool, rectal bleeding. 13:05 Back: Negative for pain at rest, pain with movement, radiated pain. 13:05 : Negative for urinary symptoms, vaginal bleeding, vaginal discharge. 13:05 Skin: Negative for rash. 13:05 Neuro: Positive for headache, Negative for altered mental status, weakness. 13:05 All other systems are negative. Exam: 13:10 Constitutional: The patient appears in no acute distress, alert, awake, non-toxic, well cp developed, well nourished, obese. 13:10 Head/Face: Normocephalic, atraumatic. cp 13:10 Eyes: Periorbital structures: appear normal, Conjunctiva: normal, no exudate, no injection, Sclera: no appreciated abnormality, Lids and lashes: appear normal, bilaterally. 13:10 ENT: External ear(s): are unremarkable, Nose: is normal, Mouth: Lips: moist, Oral mucosa: pink and intact, moist, Posterior pharynx: is normal, airway is patent, no erythema, no exudate. 13:10 Chest/axilla: Inspection: normal, Palpation: is normal, no crepitus, no tenderness. 13:10 Cardiovascular: Rate: normal, Rhythm: regular. 13:10 Respiratory: the patient does not display signs of respiratory distress, Respirations: normal, no use of accessory muscles, no retractions, no splinting, no tachypnea, labored breathing, is not present, Breath sounds: are clear throughout, no decreased breath sounds, no stridor, no wheezing. 13:10 Abdomen/GI: Inspection: obese Bowel sounds: active, all quadrants, Palpation: soft, in all quadrants, mild abdominal tenderness, in all quadrants, rebound tenderness, is not appreciated, voluntary guarding, is not appreciated, involuntary guarding, is not appreciated. 13:10 Back: pain, is absent, ROM is normal. 13:10 Skin: no rash present. 13:10 Neuro: Orientation: to person, place \T\ time. Mentation: is normal, Cerebellar function: is grossly normal, Motor: moves all fours, strength is normal, Sensation: is normal. Vital Signs: 12:09 BP 146 / 83; Pulse 89; Resp 17; Temp 98.2; Pulse Ox 99% on R/A; Weight 136.08 kg; sg Height 5 ft. 2 in. (157.48 cm); Pain 10; 12:09 Body Mass Index 54.87 (136.08 kg, 157.48 cm) sg MDM: 12:44 Patient medically screened. 13:00 Differential diagnosis: meningitis, meningoencephalitis, migraine, sinusitis, cp appendicitis, bowel obstruction, Ureterolithiasis, urinary tract infection, dehydration, electrolyte abnormality, pancreatitis, cholelithiasis. 15:25 Counseling: I had a detailed discussion with the patient and/or guardian regarding: the cp historical points, exam findings, and any diagnostic results supporting the discharge/admit diagnosis, lab results, the need for outpatient follow up, an OB/Gyne specialist, to return to the emergency department if symptoms worsen or persist or if there are any questions or concerns that arise at home. 15:25 Response to treatment: the patient's symptoms have markedly improved after treatment, cp VSS. Nausea and pain improved. No vomiting observed in ED. Will discharge to home for continued monitoring. 15:26 Data reviewed: vital signs, nurses notes, lab test result(s), radiologic studies, cp ultrasound, and as a result, I will discharge patient. 05/04 12:42 Order name: Basic Metabolic Panel; Complete Time: 15:16 [facility] 05/04 15:17 Interpretation: Normal except: CA 8.4. 05/04 12:42 Order name: CBC with Diff; Complete Time: 15:16 2 05/04 15:17 Interpretation: Normal except: WBC 12.5; RBC 6.18; MCV 67.3; MCH 20.7; MCHC 30.7; RDW cp 16.8; NEUT A 8.7. 05/04 12:42 Order name: Creatinine for Radiology; Complete Time: 15:16 [facility] 05/04 12:42 Order name: Hepatic Function; Complete Time: 15:16 [facility] 05/04 15:17 Interpretation: Normal except: ALB 3.1; GLOB 4.7; A/G 0.7. 05/04 12:42 Order name: Lipase; Complete Time: 15:16 [facility] 05/04 13:00 Order name: Urine Dipstick--Ancillary (enter results); Complete Time: 13:48 wa 05/04 15:25 Interpretation: Reviewed. 05/04 13:00 Order name: Urine --Ancillary (enter results); Complete Time: 13:48 wa 05/04 13:46 Interpretation: Reviewed. 05/04 13:48 Order name: Quantitative Hcg; Complete Time: 15:16 cp 05/04 15:17 Interpretation: Abnormal: HCGQ [id number]. cp 05/04 14:12 Order name: CBC Smear Scan; Complete Time: 15:16 EDMS 05/04 12:42 Order name: IV Saline Lock; Complete Time: 13:05 tw2 05/04 12:42 Order name: Labs collected and sent; Complete Time: 13:05 tw2 05/04 12:42 Order name: Urine Dipstick-Ancillary (obtain specimen); Complete Time: 13:05 tw2 05/04 12:42 Order name: Urine Test (obtain specimen); Complete Time: 13:05 tw2 05/04 13:07 Order name: Labs - recollect needed; Complete Time: 13:48 ms 05/04 13:56 Order name: US Transvaginal Ob; Complete Time: 15:17 cp 05/04 13:56 Order name: US Abdomen Limited: RUQ/epigastric area; Complete Time: 15:17 cp 05/04 15:21 Order name: PO challenge; Complete Time: 15:46 cp Administered Medications: 14:00 Drug: NS 0.9% 1000 ml Route: IV; Rate: 1 bolus; Site: right antecubital; sg 14:30 Follow up: Response: No adverse reaction; IV Status: IV infiltrated; IV Intake: 500ml sg 14:19 Drug: Zofran 4 mg Route: IVP; Site: right antecubital; sg 16:10 Not Given (No IV access ): Reglan 10 mg IVP once; over 1 to 2 minutes sg 16:10 Not Given (Other Intervention Used): Pepcid 20 mg IVP once sg 16:11 Not Given (no IV access): NS 0.9% 1000 ml IV at 125 ml/hr continuous sg Disposition: 05/04/19 15:27 Discharged to Home. Impression: related conditions, unspecified, first trimester, Nausea and vomiting, Diarrhea, unspecified, Unspecified abdominal pain. - Condition is Stable. - Discharge Instructions: Abdominal Pain During , Food Choices to Help Relieve Diarrhea, Adult, Nausea and Vomiting, Adult, First Trimester of . - Prescriptions for Diclegis 10- 10 mg Oral tablet,delayed release (DR/EC) - take 1 tablet by ORAL route 3-4 times daily As needed 1 tablet before meals and 2 tablets at bedtime; 60 tablet. Pepcid 20 mg Oral Tablet - take 1 tablet by ORAL route every 12 hours for 10 days; 20 tablet. - Medication Reconciliation Form, Thank You Letter, Antibiotic Education, Prescription Opioid Use form. - Follow up: Private Physician; When: 2 - 3 days; Reason: Recheck today's complaints. - Problem is an ongoing problem. - Symptoms have improved. Addendum: 05/08/2019 08:33 Co-signature as Attending Physician, Norman Shetty MD I agree with the assessment and c victoria plan of care. Signatures: Dispatcher [employer] EDMS Rajan Raphael RN RN Norman Jarrett MD MD cha Solis, Maria ms Norman Tatum, PA PA cp Shima Sanchez RN RN tw2 Corrections: (The following items were deleted from the chart) 05/04 13:00 12:57 Occult Blood+PA.LAB.BRZ ordered. EDCT EDMS 14:01 12:57 Abdomen Pelvis W Con+CT.RAD.BRZ ordered. EDCT EDMS 15:17 15:17 Normal except. cp cp 15:20 13:50 NPO ordered. cp cp 16:10 15:27 05/04/2019 15:27 Discharged to Home. Impression: related conditions, sg unspecified, first trimester; Nausea and vomiting; Diarrhea, unspecified; Unspecified abdominal pain. Condition is Stable. Forms are Medication Reconciliation Form, Thank You Letter, Antibiotic Education, Prescription Opioid Use. Follow up: Private Physician; When: 2 - 3 days; Reason: Recheck today's complaints. Problem is an ongoing problem. Symptoms have improved. cp
--- NOTE | 2019-05-04 15:28 | ER ---
Nurse's Notes [facility] Name: Rachel Mares Age: 29 yrs Sex: Female : 1990 Arrival Date: 05/04/2019 Time: 12:00 Bed 14 Private MD: Diagnosis: related conditions, unspecified, first trimester;Nausea and vomiting;Diarrhea, unspecified;Unspecified abdominal pain Presentation: 05/04 12:11 Presenting complaint: Patient states: N/V/D/Fever for the last week, reports has been sg taking OTC medication but has no relief, pt states that this morning has pain to the RLQ, denies urinary symptoms at this time. Transition of care: patient was not received from another setting of care. Onset of symptoms was May 04, 2019. Risk Assessment: Do you want to hurt yourself or someone else? Patient reports no desire to harm self or others. Initial Sepsis Screen: Does the patient meet any 2 criteria? No. Patient's initial sepsis screen is negative. Does the patient have a suspected source of infection? Yes: Acute abdominal pain. Care prior to arrival: None. 12:11 Acuity: VIPIN 3 sg 12:11 Method Of Arrival: Ambulatory sg Triage Assessment: 12:39 Headache History: The patient has had previous headaches and this one is similar to tw2 previous episodes. General: Appears in no apparent distress. Behavior is calm. Pain: Pain currently is 10 out of 10 on a pain scale. Pain began suddenly, Also complains of no other associated symptoms. Neuro: Level of Consciousness is awake, alert, obeys commands. 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 tw2 Historical: - Allergies: 12:09 No Known Allergies; sg - PSHx: 12:09 ; sg - Immunization history:: Adult Immunizations up to date. - Social history:: Smoking status: Patient/guardian denies using tobacco. - Ebola Screening: : Patient negative for fever greater than or equal to 101.5 degrees Fahrenheit, and additional compatible Ebola Virus Disease symptoms Patient denies exposure to infectious person Patient denies travel to an Ebola-affected area in the 21 days before illness onset No symptoms or risks identified at this time. Screenin:40 Abuse screen: Denies threats or abuse. Nutritional screening: No deficits noted. tw2 Tuberculosis screening: No symptoms or risk factors identified. Fall Risk None identified. Assessment: 12:42 General: Appears in no apparent distress. obese, well groomed, Behavior is calm, tw2 cooperative, appropriate for age. Pain: Complains of pain in abdomen. Neuro: Reports headache. Neuro: Level of Consciousness is awake, alert, obeys commands, Oriented to person, place, time, situation. Cardiovascular: Heart tones S1 S2 Patient's skin is warm and dry. Respiratory: Airway is patent Respiratory effort is even, unlabored, Respiratory pattern is regular, symmetrical, Breath sounds are clear bilaterally. GI: Abdomen is round non-distended, obese, Bowel sounds present X 4 quads. Reports diarrhea, nausea, vomiting. : No signs and/or symptoms were reported regarding the genitourinary system. EENT: No signs and/or symptoms were reported regarding the EENT system. Derm: No signs and/or symptoms reported regarding the dermatologic system. Musculoskeletal: Range of motion: intact in all extremities. 14:10 Reassessment: Patient appears in no apparent distress at this time. pt educated that sg lab is requesting more stool specimen, pt stated understanding, will attempt to obtain. 14:40 Reassessment: IV site appears infiltrated, IV dc, attempt to locate a new IV site for sg completion of IV medication administration as ordered. Maryam DEAL notified. 14:45 Reassessment: Maryam DEAL ordered no IV access needed at this time. sg 15:40 Reassessment: pt reports unable to provide a repeat stool sample at this time. sg Vital Signs: 12:09 BP 146 / 83; Pulse 89; Resp 17; Temp 98.2; Pulse Ox 99% on R/A; Weight 136.08 kg; sg Height 5 ft. 2 in. (157.48 cm); Pain 10/10; 12:09 Body Mass Index 54.87 (136.08 kg, 157.48 cm) sg ED Course: 12:00 Patient arrived in ED. rg4 12:09 Arm band placed on. sg 12:13 Triage completed. sg 12:40 Bed in low position. Call light in reach. Pulse ox on. NIBP on. tw2 12:43 Norman Tatum PA is PHCP. cp 12:44 Norman Shetty MD is Attending Physician. cp 13:05 Initial lab(s) drawn, by me, sent to lab. Inserted saline lock: 22 gauge in left kj1 antecubital area, using aseptic technique. 13:22 Rajan Raphael, RN is Primary Nurse. sg 13:30 stool sample was collected and sent to lab. sg 14:44 US Transvaginal Ob In Process Unspecified. EDMS 14:44 US Abdomen Limited: RUQ/epigastric area In Process Unspecified. EDMS 15:08 IV is swollen, with fluids not infusing freely, without good blood return, IV sg discontinued, intact, bleeding controlled, No redness/swelling at site. Pressure dressing applied. 15:40 Diet: Patient given water. sg Administered Medications: 14:00 Drug: NS 0.9% 1000 ml Route: IV; Rate: 1 bolus; Site: right antecubital; sg 14:30 Follow up: Response: No adverse reaction; IV Status: IV infiltrated; IV Intake: 500ml sg 14:19 Drug: Zofran 4 mg Route: IVP; Site: right antecubital; sg 16:10 Not Given (No IV access ): Reglan 10 mg IVP once; over 1 to 2 minutes sg 16:10 Not Given (Other Intervention Used): Pepcid 20 mg IVP once sg 16:11 Not Given (no IV access): NS 0.9% 1000 ml IV at 125 ml/hr continuous sg Intake: 14:30 IV: 500ml; Total: 500ml. sg Outcome: 15:27 Discharge ordered by . cp 16:08 Discharged to home ambulatory, with family. sg 16:08 Condition: good 16:08 Discharge instructions given to patient, Instructed on discharge instructions, follow up and referral plans. safety practices, Demonstrated understanding of instructions, follow-up care, medications, Prescriptions given X 2. 16:10 Patient left the ED. sg Signatures: Dispatcher [employer] EDMS Rajan Raphael, RN RN sg Norman Tatum PA PA cp Wise, Tara RN RN tw2 Anita Delgado 4 Candice Briggs kj1
[2019-05-04 16:59] VITALS: BP 146/83; TEMP 98.2; O2SAT 99
== END 2019-05-04 16:10 | disposition home or self-care (01) ==
LOC: ER 11:55
DX: O21.9 Vomiting of pregnancy, unspecified (principal); R19.7 Diarrhea, unspecified; R10.9 Unspecified abdominal pain; Z3A.00 Weeks of gestation of pregnancy not specified
CPT/HCPCS: 36415; 76705; 76817; 80048; 80076; 81003; 81025; 83690; 84702; 85025; 96374; 99284; J2405; J2765; J7030

== ENCOUNTER 2019-06-10 04:41 | Emergency (ER) | payer OTHER ==
--- OUTSIDE RECORDS SUMMARY | 2019-06-10 04:46 | XMS REPORT ---
:1990 [facility] Address [address] [place] [address] Dr. Grullon [address] [place] [id number] Care Team Providers Name Role Phone Unavailable Unavailable Unavailable Problems This patient has no known problems. Allergies, Adverse Reactions, Alerts This patient has no known allergies or adverse reactions. Medications This patient has no known medications.
--- OUTSIDE RECORDS SUMMARY | 2019-06-10 04:46 | XMS REPORT | Continuity of Care Document ---
:1990 Author Organization [facility] Care Team Providers Name Role Phone [employer] Unavailable Unavailable Problems Problem Status Onset Classification Date Comments Source Date Reported Discharge 02/04/2017 [facility] Diagnosis: BV 7 ABDOMINAL PAIN Active [facility] - 7 [place] Discharge 01/19/2017 [facility] Diagnosis: 7 Accidental fall Discharge 01/19/2017 [facility] Diagnosis: 7 Abdominal pain during in first trimester 8 WKS Active [facility] PREG/FALL 7 Discharge 12/20/2016 [facility] Diagnosis: 7 Abdominal pain affecting Discharge 12/20/2016 [facility] Diagnosis: 7 Acute UTI PELVIC PAIN Active [address] Medications Medication Details Route Status Patient Ordering Order Source Instructions Provider Date Tylenol 650 mg, Route: Inactive PO, Drug form: 2016 [place] TAB, ONCE, Dosing Weight 131.364, kg, Priority: STAT, Start date: 02/01/17 23:06:00 CDT, Stop date: 02/01/17 23:06:00 CDT Metronidazole 500 mg=1 tab, Active 500 MG Oral PO, BID, X 7 2017 [place] Tablet [Flagyl] day, # 14 tab, 0 Refill(s) Acetaminophen 650 mg, 2 tab, Inactive Route: PO, 2016 [place] Drug form: TAB, ONCE, Dosing Weight 127.273, kg, Priority: STAT, Start date: 02/01/17 17:18:00 CDT, Stop date: 02/01/17 17:18:00 CDTNotes: Do not exceed 4 gm/day. (Same as: Tylenol) Saline Flush 10 mL, Route: No Longer 0.9% IVP, Drug Active 2016 [place] Form: INJ, Dosing Weight 127.273, kg, PRN, PRN Line Flush, Start date: 02/01/17 17:18:00 CDT, Duration: 30 day, Stop date: 03/03/17 17:17:00 CDTNotes: (Same as: BD Posiflush) Saline Flush 10 mL, Route: Inactive 0.9% IVP, Drug 2016 [place] Form: INJ, Dosing Weight 127.273, kg, PRN, PRN Line Flush, Start date: 01/16/17 10:51:00 MANAGER PRACTICE, Duration: 30 day, Stop date: 02/15/17 11:50:00 CDTNotes: preservative free. Cephalexin 500 500 mg=1 cap, Active MH MG Oral Capsule PO, BID, X 7 2016 [place] [Keflex] day, # 14 cap, 0 Refill(s) Sodium Chloride 1,000 mL, Inactive MH 0.154 MEQ/ML 1,000 ml/hr, 2016 [place] Injectable Infuse Over: 1 Solution hr, Route: IV, 1,000, Drug form: INJ, ONCE, Priority: STAT, Dosing Weight 136.364 kg, Start date: 12/17/16 4:37:00 MANAGER PRACTICE, Duration: 1 doses or times, Stop date: 12/17/16 4:37:00 MANAGER PRACTICE Sodium Chloride 1,000 mL, Inactive 0.154 MEQ/ML 1,000 ml/hr, 2016 [place] Injectable Infuse Over: 1 Solution hr, Route: IV, 1,000, Drug form: INJ, ONCE, Priority: STAT, Dosing Weight 136.364 kg, Start date: 12/17/16 2:27:00 MANAGER PRACTICE, Duration: 1 doses or times, Stop date: 12/17/16 2:27:00 MANAGER PRACTICE Allergies, Adverse Reactions, Alerts No Known Medication Allergies Immunizations No Data Provided for This Section Results Order Name Results Value Reference Date Interpretation Comments Source Range MOLECULAR N gonorrhea Negative Negative 02/02 DIAGNOSTIC by Amp Det *NA [place] (APTIMA) (02/01/17 9:57 PM) MOLECULAR Source Endocervix 02/02 DIAGNOSTIC APTIMA * [place] (02/01/17 9:57 PM) MOLECULAR C Negative Negative 02/02 DIAGNOSTIC trachomatis * [place] by Amp Det (02/01/17 9:57 PM) (APTIMA) [place] 95171 02/02 OGY /2016 [place] URINE AND UA Blood Negative Negative 02/02 [facility] (02/01/17 8:01 PM) /2016 [place] URINE AND UA Ketones Negative Negative 02/02 STOOL *NA* /2016 [place] (02/01/17 8:01 PM) URINE AND UA Bili Negative Negative 02/02 STOOL *NA* /2016 [place] (02/01/17 8:01 PM) URINE AND UA 0.2 0.1 - 1.0 02/02 STOOL Urobilinogen /2016 [place] URINE AND UA Nitrite Negative Negative 02/02 [facility] (02/01/17 8:01 PM) /2016 [place] URINE AND UA Sq Epi Few /LPF Few /LPF 02/02 STOOL [place] URINE AND UA Leuk Est Negative Negative 02/02 [facility] (02/01/17 8:01 PM) [place] URINE AND UA Bacteria Few /HPF None Seen 02/02 STOOL /HPF [place] URINE AND UA RBC 0-2 /HPF 0 - 2 02/02 STOOL [place] URINE AND UA Glucose Negative Negative 02/02 [facility] (02/01/17 8:01 PM) [place] URINE AND UA Protein Negative Negative 02/02 [facility] (02/01/17 8:01 PM) [place] URINE AND UA pH 6.0 5.0 - 8.0 02/02 STOOL [place] URINE AND UA Spec Grav >=1.030 <=1.030 02/02 STOOL *ABN* /2016 [place] (02/01/17 8:01 PM) URINE AND UA Turbidity Clear Clear 02/02 [facility] (02/01/17 8:01 PM) [place] URINE AND UA Color Yellow Yellow 02/02 STOOL *NA* /2016 [place] (02/01/17 8:01 PM) URINE AND UA WBC 0-2 /HPF None Seen 02/02 STOOL /HPF /2016 [place] CHEM PANEL eGFR 139 02/01 Result Comment: The [place] eGFR is calculated using the CKD-EPI formula. In most young, healthy individuals the eGFR will be >90 mL/min/1.73m2 . The eGFR declines with age. An eGFR of 60-89 may be normal in some populations, particularly the elderly, for whom the CKD-EPI formula has not been extensively validated. Use of the eGFR is not recommended in the following populations:< br/>
Karolina viduals with unstable creatinine concentration s, including patients and those with serious co-morbid conditions.<b r/>
Patie nts with extremes in muscle mass or diet.

The data above are obtained from the National Kidney Disease Education Program (NKDEP) which additionally recommends that when the eGFR is used in patients with extremes of body mass index for purposes of drug dosing, the eGFR should be multiplied by the estimated BMI. CHEM PANEL Glucose Lvl 107 70 - 99 02/01 [place] CHEM PANEL Sodium Lvl 138 135 - 145 02/01 [place] CHEM PANEL BUN 16 7 - 22 02/01 [place] CHEM PANEL Creatinine 0.70 0.50 - 02/01 Lvl 1.40 [place] CHEM PANEL Calcium Lvl 7.9 8.5 - 10.5 02/01 [place] CHEM PANEL Chloride Lvl 106 95 - 109 02/01 [place] CHEM PANEL CO2 22 24 - 32 02/01 [place] CHEM PANEL Potassium 4.3 3.5 - 5.1 02/01 Lvl /2016 [place] CHEM PANEL AGAP 14.3 10.0 - 02/01 MH 20.0 [place] BLOOD BANK ABO/Rh A POS 02/01 RESULTS /2016 [place] HEMATOLOGY Monocytes # 0.8 0.0 - 0.8 02/01 /2016 [place] HEMATOLOGY Lymphocytes 3.5 1.0 - 5.5 02/01 MH # /2016 [place] HEMATOLOGY Eosinophils 0.1 0.0 - 0.5 02/01 MH # /2016 [place] HEMATOLOGY Basophils # 0.1 0.0 - 0.2 02/01 [place] HEMATOLOGY Microcyte 3+ None Seen 02/01 MH *NA* /2016 [place] (02/01/17 6:02 PM) HEMATOLOGY Anisocyte 1+ None Seen 02/01 *ABN* /2016 [place] (02/01/17 6:02 PM) HEMATOLOGY Plt Morph Normal 02/01 (02/01/17 6:02 PM) /2016 [place] HEMATOLOGY Segs 62.3 45.0 - 03/13 MH 75.0 [place] HEMATOLOGY Eosinophils 1.1 0.0 - 4.0 02/01 [place] HEMATOLOGY Basophils 0.5 0.0 - 1.0 02/01 [place] HEMATOLOGY Monocytes 6.9 2.0 - 12.0 02/01 [place] HEMATOLOGY Lymphocytes 29.2 20.0 - 02/01 MH 40.0 [place] HEMATOLOGY Segs-Bands # 7.5 1.5 - 8.1 02/01 [place] HEMATOLOGY Platelet 297 133 - 450 02/01 [place] HEMATOLOGY RDW 15.7 11.5 - 02/01 MH 14. [place] HEMATOLOGY MCHC 31.4 32.0 - 02/01 MH 36. [place] HEMATOLOGY MCV 65.4 80.0 - 02/01 MH 98.0 [place] HEMATOLOGY MCH 20.5 27.0 - 02/01 MH 31. [place] HEMATOLOGY Hct 38.7 36.0 - 02/01 MH 48.0 [place] HEMATOLOGY Hgb 12.1 12.0 - 02/01 MH 16. [place] HEMATOLOGY WBC X 10x3 12.0 3.7 - 10.4 02/01 [place] HEMATOLOGY RBC X 10x6 5.91 4.20 - 02/01 5. [place] HEMATOLOGY MPV 8.0 7.4 - 10.4 02/01 [place] BLOOD BANK ABO/Rh A POS 01/16 [facility] ENDOCRINOL S Preg Positive Negative 01/16 OGY *NA* /2016 [facility] (01/16/17 11:02 AM) [place] [id number] 01/16 OG [facility] HEMATOLOGY MPV 7.8 7.4 - 10.4 01/16 [facility] HEMATOLOGY Hgb 11.9 12.0 - 01/16 MH 16. [facility] HEMATOLOGY Hct 38.2 36.0 - 01/16 MH 48. [facility] HEMATOLOGY MCHC 31.1 32.0 - 01/16 MH 36. [facility] HEMATOLOGY RBC 5.86 4.20 - 01/16 5. [facility] HEMATOLOGY WBC 13.9 3.7 - 10.4 01/16 [facility] HEMATOLOGY MCV 65.2 80.0 - 01/16 MH 98.0 /2016 [facility] HEMATOLOGY MCH 20.3 27.0 - 01/16 MH 31.0 /2016 [facility] HEMATOLOGY Platelet 282 133 - 450 01/16 [facility] HEMATOLOGY RDW 16.3 11.5 - 01/16 MH 14.5 /2016 [facility] HEMATOLOGY Segs 67.8 45.0 - 01/16 MH 75.0 /2016 [facility] HEMATOLOGY Lymphocytes 23.8 20.0 - 01/16 MH 40.0 /2016 [facility] HEMATOLOGY Monocytes # 1.0 0.0 - 0.8 01/16 [facility] HEMATOLOGY Eosinophils 0.4 0.0 - 4.0 01/16 [facility] HEMATOLOGY Monocytes 7.5 2.0 - 12.0 01/16 [facility] HEMATOLOGY Segs-Bands # 9.5 1.5 - 8.1 01/16 [facility] HEMATOLOGY Lymphocytes 3.3 1.0 - 5.5 01/16 # /2016 [facility] HEMATOLOGY Basophils 0.5 0.0 - 1.0 01/16 [facility] HEMATOLOGY Eosinophils 0.1 0.0 - 0.5 01/16 # /2016 [facility] HEMATOLOGY Basophils # 0.1 0.0 - 0.2 01/16 [facility] HEMATOLOGY Microcyte 3+ None Seen 01/16 *NA* /2016 [facility] (01/16/17 11:02 AM) URINE AND UA Nitrite Negative Negative 01/16 [facility] (01/16/17 11:02 AM) [facility] URINE AND UA Bili Negative Negative 01/16 STOOL *NA* /2016 [facility] (01/16/17 11:02 AM) URINE AND UA Leuk Est Negative Negative 01/16 [facility] (01/16/17 11:02 AM) /2016 URINE AND UA Blood Negative Negative 01/16 [facility] (01/16/17 11:02 AM) [place] URINE AND UA Sq Epi Occasional Few /LPF 01/16 STOOL /LPF /2016 [place] URINE AND UA Color Colorless 01/16 STOOL [facility] URINE AND UA <=1.0 0.1 - 1.0 01/16 STOOL Urobilinogen mg/dL /2016 [facility] URINE AND UA Spec Grav 1.001 <=1.030 01/16 STOOL [place] URINE AND UA Turbidity Clear Clear 01/16 [facility] (01/16/17 11:02 AM) [facility] URINE AND UA pH 6.0 5.0 - 8.0 01/16 STOOL [place] URINE AND UA Glucose Negative Negative 01/16 [facility] mg/dL mg/dL [facility] URINE AND UA Protein Negative Negative 01/16 [facility] mg/dL mg/dL [place] URINE AND UA Ketones Negative Negative 01/16 [facility] mg/dL mg/dL [place] MOLECULAR Source Vaginal 12/17 DIAGNOSTIC [place]TIM[place] *NA* [place] (12/17/16 3:12 AM) MOLECULAR C Negative Negative 12/17 DIAGNOSTIC trachomatis *NA* [place] by Amp Det (12/17/16 3:12 AM) (APTIMA) MOLECULAR N gonorrhea Negative Negative 12/17 DIAGNOSTIC by Amp Det *NA* [facility] ([place]) (12/17/16 3:12 AM) BLOOD BANK ABO/Rh A POS 12/17 RESULTS [place] CHEM PANEL eGFR 106 12/17 Result Comment: The [place] eGFR is calculated using the CKD-EPI formula. In most young, healthy individuals the eGFR will be >90 mL/min/1.73m2 . The eGFR declines with age. An eGFR of 60-89 may be normal in some populations, particularly the elderly, for whom the CKD-EPI formula has not been extensively validated. Use of the eGFR is not recommended in the following populations:< br/>
Karolina viduals with unstable creatinine concentration s, including patients and those with serious co-morbid conditions.<b r/>
Patie nts with extremes in muscle mass or diet.

The data above are obtained from the National Kidney Disease Education Program (NKDEP) which additionally recommends that when the eGFR is used in patients with extremes of body mass index for purposes of drug dosing, the eGFR should be multiplied by the estimated BMI. CHEM PANEL ASPARTATE 14 0 - 37 12/17 TRANSAMINASE [place] CHEM PANEL Total 7.3 6.4 - 8.4 12/17 Protein [place] CHEM PANEL Calcium Lvl 8.4 8.5 - 10.5 12/17 [place] CHEM PANEL CO2 29 24 - 32 12/17 [place] CHEM PANEL Chloride Lvl 105 95 - 109 12/17 [place] CHEM PANEL Alk Phos 60 39 - 136 12/17 [place] CHEM PANEL ALANINE 20 0 - 65 12/17 AMINOTRANS [place] RASE CHEM PANEL Albumin Lvl 3.1 3.5 - 5.0 12/17 [place] CHEM PANEL Creatinine 0.87 0.50 - 12/17 MH Lvl 1.40 [place] CHEM PANEL BUN 17 7 - 22 12/17 [place] CHEM PANEL Glucose Lvl 95 70 - 99 12/17 [place] CHEM PANEL Bili Total 0.2 0.2 - 1.3 12/17 [place] CHEM PANEL Potassium 3.8 3.5 - 5.1 12/17 MH Lvl [place] CHEM PANEL Sodium Lvl 142 135 - 145 12/17 [place] CHEM PANEL A/G Ratio 0.7 0.7 - 1.6 12/17 [place] CHEM PANEL B/C Ratio 20 6 - 25 12/17 [place] CHEM PANEL AGAP 11.8 10.0 - 12/17 MH 20.0 [place] CHEM PANEL Globulin 4.2 2.7 - 4.2 12/17 [place] ENDOCRINOL hCG Tot 3316 12/17 OG [place] HEMATOLOGY Target Cell few 12/17 [place] HEMATOLOGY Hyperseg few 12/17 [place] HEMATOLOGY Polychrom rare 12/17 [place] HEMATOLOGY Stomatocyte few 12/17 [place] HEMATOLOGY Eosinophils 0.9 0.0 - 4.0 12/17 [place] HEMATOLOGY Basophils 0.6 0.0 - 1.0 12/17 [place] HEMATOLOGY Segs-Bands # 6.8 1.5 - 8.1 12/17 [place] HEMATOLOGY Lymphocytes 34.8 20.0 - 12/17 MH 40.0 [place] HEMATOLOGY Monocytes 8.2 2.0 - 12.0 12/17 [place] HEMATOLOGY Eosinophils 0.1 0.0 - 0.5 12/17 MH # /2016 [place] HEMATOLOGY Basophils # 0.1 0.0 - 0.2 12/17 [place] HEMATOLOGY Microcyte 3+ None Seen 12/17 MH *NA* /2016 [place] (12/17/16 3:01 AM) HEMATOLOGY Lymphocytes 4.3 1.0 - 5.5 12/17 MH # /2017 [place] HEMATOLOGY Monocytes # 1.0 0.0 - 0.8 12/17 [place] HEMATOLOGY Segs 55.5 45.0 - 12/17 MH 75.0 /2016 [place] HEMATOLOGY MPV 8.2 7.4 - 10.4 12/17 [place] HEMATOLOGY Platelet 267 133 - 450 12/17 [place] HEMATOLOGY Hgb 12.1 12.0 - 12/17 MH 16.0 [place] HEMATOLOGY RBC X 10x6 5.95 4.20 - 12/17 MH 5.40 /2016 [place] HEMATOLOGY WBC X 10x3 12.2 3.7 - 10.4 12/17 [place] HEMATOLOGY RDW 16.2 11.5 - 12/17 MH 14.5 [place] HEMATOLOGY MCHC 30.9 32.0 - 12/17 MH 36.0 [place] HEMATOLOGY MCH 20.3 27.0 - 12/17 MH 31.0 [place] HEMATOLOGY MCV 65.8 80.0 - 12/17 MH 98.0 [place] HEMATOLOGY Hct 39.1 36.0 - 12/17 MH 48.0 [place] URINE AND UA Mucus None Seen None Seen 12/17 [facility] (12/17/16 3:01 AM) /2016 [place] URINE AND UA Bacteria Occasional None Seen 12/17 STOOL /HPF /HPF /2016 [place] URINE AND UA Leuk Est Negative Negative 12/17 [facility] (12/17/16 3:01 AM) /2016 [place] URINE AND UA Sq Epi Occasional Few /LPF 12/17 STOOL /LPF /2016 [place] URINE AND UA Nitrite Negative Negative 12/17 [facility] (12/17/16 3:01 AM) /2016 [place] URINE AND UA WBC 0-2 /HPF None Seen 12/17 STOOL /HPF /2016 [place] URINE AND UA RBC 0-2 /HPF 0 - 2 12/17 STOOL /2016 [place] URINE AND UA Color Yellow Yellow 12/17 STOOL *NA* /2016 [place] (12/17/16 3:01 AM) URINE AND UA Turbidity Clear Clear 12/17 STO[facility] (12/17/16 3:01 AM) /2016 [place] URINE AND UA 0.2 0.1 - 1.0 12/17 STOOL Urobilinogen /2016 [place] URINE AND UA Blood Negative Negative 12/17 STO[facility] (12/17/16 3:01 AM) [place] URINE AND UA Bili Negative Negative 12/17 STOOL *NA* /2016 [place] (12/17/16 3:01 AM) URINE AND UA pH 6.0 5.0 - 8.0 12/17 STOOL /2016 [place] URINE AND UA Protein Negative Negative 12/17 STO[facility] (12/17/16 3:01 AM) [place] URINE AND UA Spec Grav >=1.030 <=1.030 12/17 STOOL *ABN* [place] (12/17/16 3:01 AM) URINE AND UA Ketones Trace Negative 12/17 STOOL *ABN* /2016 [place] (12/17/16 3:01 AM) URINE AND UA Glucose Negative Negative 12/17 STOOL (12/17/16 3:01 AM) [place] URINE CHEM U Preg Positive Negative 12/17 *ABN* /2016 [place] (12/17/16 3:01 AM) Pathology Reports No Data Provided for This Section Diagnostic Reports Report Value Date Source < 14 weeks Study: Pelvic ultrasound 02/01/2017 [facility] single gestation US History: Cramping Comments: Transabdominal OB ultrasound was obtained utilizing [...] sonographic age of 12 weeks 0 days Preg < 14wks sing gest EXAM: Ultrasound pelvis less than 14 weeks with Doppler 01/16/2017 [facility] w transvag/Dop US HISTORY: , abdominal trauma, fall COMPARISON: None TECHNIQUE: Transabdominal and transvaginal pelvic ultrasound, grayscale static images with duplex Doppler of the ovaries. FINDINGS: Transabdominal ultrasound: Uterus: Measures 11.5 cm [...] gestational age 10 weeks 0 days. SL: [id number] Preg < 14wks Single OBSTETRIC 1ST TRIMESTER ULTRASOUND 12/17/2016 [facility] Transvag US INDICATION: Pelvic pain COMPARISON: None DISCUSSION: Current beta hCG level [...] free fluid suggests possible cyst rupture. SL:16 Consultation Notes No Data Provided for This Section Discharge Summaries No Data Provided for This Section History and Physicals No Data Provided for This Section Vital Signs Vital Sign Value Date Comments Source Respitory Rate 18 02/02/2017 [facility] Heart Rate 95 02/02/2017 [facility] Systolic (mm Hg) 100 02/02/2017 [facility] Diastolic (mm Hg) 64 02/02/2017 [facility] Respitory Rate 18 02/02/2017 [facility] Heart Rate 88 02/02/2017 [facility] Systolic (mm Hg) 107 02/02/2017 [facility] Diastolic (mm Hg) 63 02/02/2017 [facility] Weight 131.364 02/01/2017 [facility] Respitory Rate 16 02/01/2017 [facility] Temperature Oral (F) 98.6 F 02/01/2017 [facility] Systolic (mm Hg) 115 02/01/2017 [facility] Diastolic (mm Hg) 74 02/01/2017 [facility] Heart Rate 128 02/01/2017 [facility] Respitory Rate 16 01/16/2017 [facility] Systolic (mm Hg) 120 01/16/2017 [facility] Diastolic (mm Hg) 86 01/16/2017 [facility] Temperature Oral (F) 97.6 F 01/16/2017 [facility] Heart Rate 91 01/16/2017 [facility] Respitory Rate 18 01/16/2017 [facility] Heart Rate 99 01/16/2017 [facility] Temperature Oral (F) 98.0 F 01/16/2017 [facility] Height 157.48 cm 01/16/2017 [facility] BMI Calculated 51.32 01/16/2017 [facility] Weight 127.273 01/16/2017 [facility] Systolic (mm Hg) 136 01/16/2017 [facility] Diastolic (mm Hg) 86 01/16/2017 [facility] Systolic (mm Hg) 112 12/17/2016 [facility] Diastolic (mm Hg) 68 12/17/2016 [facility] Respitory Rate 18 12/17/2016 [facility] Temperature Oral (F) 98.1 F 12/17/2016 [facility] Heart Rate 88 12/17/2016 [facility] Weight 136.364 12/17/2016 [facility] BMI Calculated 54.99 12/17/2016 [facility] Height 157.48 cm 12/17/2016 [facility] Temperature Oral (F) 98.2 F 12/17/2016 [facility] Systolic (mm Hg) 110 12/17/2016 [facility] Diastolic (mm Hg) 69 12/17/2016 [facility] Heart Rate 107 12/17/2016 [facility] Respitory Rate 20 12/17/2016 [facility] Encounters Location Location Encounter Encounter Reason Attending ADM DC Status Source Details Type Number For Provider Date Date [facility] [id number] [facility] Mcdonald 12/17 12/17 Rashaun /2016 [facility] [id number] [place] 01/16 01/16 Rashaun Leon /2016 [facility] Emergency [id number] [place] 02/01 02/02 Rashaun Fox /2016 [facility] Procedures No Data Provided for This Section Assessment and Plan No Data Provided for This Section Plan of Care No Data Provided for This Section Social History Social History Date Source Social History TypeResponse 02/02/2017 [facility] Smoking Status Never smoker; Ready to change: No; Concerns about tobacco use in household: No ; Exposure to Tobacco Smoke None; Cigarette Smoking Last 365 Days No; Reg Smoking Cessation Counseling No Social History TypeResponse 01/16/2017 [facility] Smoking Status Never smoker; Ready to change: No; Concerns about tobacco use in household: No ; Exposure to Tobacco Smoke None; Cigarette Smoking Last 365 Days No; Reg Smoking Cessation Counseling No Family History No Data Provided for This Section Advance Directives No Data Provided for This Section Functional Status No Data Provided for This Section
[2019-06-10] MEDS ORDERED: NA CHLORIDE 0.9% 1,000 ML ONE (05:15)
[2019-06-10 05:23] LABS: Absolute Lymphocytes (CBC) 2.6 K/uL (0.7-4.9); Basophils % 0.7 % (0-1.3); Eosinophils % 1.4 % (0-4.4); Hematocrit 35.5 % (36.0-45.0); Lymphocytes % 40.3 % (15.3-44.8); MPV 8.4 fL (7.6-11.3); Monocytes % 11.5 % (3.3-12.3)
[2019-06-10] MEDS ORDERED: ONDANSETRON 4 MG (ODT) TAB ONE ×2 (05:30→05:31)
[2019-06-10 05:53] LABS: ALT/SGPT 18 U/L (12-78); AST/SGOT 11 U/L (15-37); Albumin 2.5 g/dL (3.4-5.0); Alkaline Phosphatase 45 U/L (45-117); BUN Blood Urea Nitrogen 9 mg/dL (7-18); Bicarbonate 26 mmol/L (21-32); Bilirubin Direct 0.1 mg/dL (0-0.2); Bilirubin Total 0.2 mg/dL (0.2-1.0); Glucose Level 82 mg/dL (74-106); Lipase 74 U/L (73-393); Potassium 3.9 mmol/L (3.5-5.1); Protein, Total 6.8 g/dL (6.4-8.2); Sodium Level 140 mmol/L (136-145)
[2019-06-10 06:36] LABS: Anisocytosis SLIGHT; Blood Morphology Comment NOTED (NOT SEEN); Hypochromasia 1+; Platelet Estimate ADEQ; Urine White Blood Cell Casts OK
--- NOTE | 2019-06-10 06:38 | ER ---
Nurse's Notes [facility] Name: Rachel Mares Age: 29 yrs Sex: Female : 1990 Arrival Date: 06/10/2019 Time: 04:42 Bed 20 [facility] MD: Diagnosis: Diarrhea, unspecified;Nausea Presentation: 06/10 04:54 Presenting complaint: Patient states: she has been having diarrhea, abdominal cramping, bb pain with bowel movements, and nausea x 1 week. Pt is 16 weeks and states these symptoms have been going on x 3 months and she has been several times for this but has not been diagnosed with anything, she is in the process of getting a referral to a GI specialist. Transition of care: patient was not received from another setting of care. Onset of symptoms was June 03, 2019. Risk Assessment: Do you want to hurt yourself or someone else? Patient reports no desire to harm self or others. Initial Sepsis Screen: Does the patient meet any 2 criteria? No. Patient's initial sepsis screen is negative. Does the patient have a suspected source of infection? No. Patient's initial sepsis screen is negative. Care prior to arrival: None. 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 - Social history:: Smoking status: Patient/guardian denies using tobacco. - Ebola Screening: : No symptoms or risks identified at this time. Screenin:04 Abuse screen: Denies threats or abuse. Nutritional screening: No deficits noted. tr5 Tuberculosis screening: No symptoms or risk factors identified. Fall Risk No fall in past 12 months (0 pts). No secondary diagnosis (0 pts). IV access (20 points). Ambulatory Aid- None/Bed Rest/Nurse Assist (0 pts). Gait- Normal/Bed Rest/Wheelchair (0 pts) Mental Status- Oriented to own ability (0 pts). Total Mayorga Fall Scale indicates No Risk (0-24 pts). Assessment: 05:01 General: Appears uncomfortable, Behavior is calm, cooperative, appropriate for age. tr5 Pain: Complains of pain in abdomen. Neuro: Level of Consciousness is awake, alert, obeys commands, Oriented to person, place, time, Cremator are equal bilaterally. Cardiovascular: Heart tones present Bruits absent Capillary refill < 3 seconds Pulses are all present. Edema is absent. Respiratory: Airway is patent Trachea midline Respiratory effort is even, unlabored, Respiratory pattern is regular, symmetrical, Breath sounds are clear bilaterally. GI: Reports lower abdominal pain, diarrhea, nausea, vomiting. : No signs and/or symptoms were reported regarding the genitourinary system. EENT: No signs and/or symptoms were reported regarding the EENT system. Derm: No signs and/or symptoms reported regarding the dermatologic system. Musculoskeletal: Capillary refill < 3 seconds, Range of motion: intact in all extremities. 06:47 Reassessment: Patient appears in no apparent distress at this time. Patient is alert, aa1 oriented x 3, equal unlabored respirations, skin warm/dry/pink. Discussed d/c \T\ f/u instructions with pt; denies questions or concerns at this time. Ambulatory to lobby with steady gait. Patient states feeling better. Vital Signs: 04:57 BP 104 / 90; Pulse 99; Resp 16 S; Temp 97.5(TE); Pulse Ox 99% on R/A; Weight 136.08 kg bb (R); Height 5 ft. 2 in. (157.48 cm) (R); Pain 10/10; 06:38 BP 97 / 56; Pulse 93; Resp 18; Pulse Ox 96% on R/A; aa1 04:57 Body Mass Index 54.87 (136.08 kg, 157.48 cm) bb ED Course: 04:42 Patient arrived in ED. am2 04:51 Alistair Moss MD is Attending Physician. kdr 04:52 Luis Bolanos, LOR is Primary Nurse. tr5 04:56 Triage completed. bb 04:57 Arm band placed on Patient placed in an exam room, on a stretcher, on pulse oximetry. bb Family accompanied patient. 05:04 Patient has correct armband on for positive identification. Bed in low position. Call tr5 light in reach. Side rails up X 1. 05:06 Initial lab(s) drawn, by me, sent to lab. Missed attempt(s): 22 gauge in left forearm. aa1 Bleeding controlled, band aid applied, catheter tip intact. 06:39 No provider procedures requiring assistance completed. Patient did not have IV access aa1 during this emergency room visit. Administered Medications: 05:18 Drug: Zofran 4 mg Route: PO; aa1 06:18 Follow up: Response: No adverse reaction; Nausea is decreased aa1 06:39 Not Given (Physician Discretion): NS 0.9% 1000 ml IV at 1 bolus Per protocol; 1000 mL aa1 bolus Outcome: 06:38 Discharge ordered by . kdr 06:47 Discharged to home ambulatory, with significant other. aa1 06:47 Condition: good 06:47 Discharge instructions given to patient, significant other, Instructed on discharge instructions, follow up and referral plans. medication usage, Demonstrated understanding of instructions, follow-up care, medications, Prescriptions given X 3. 06:48 Patient left the ED. aa1 Signatures: Erika Staley RN RN aa1 Alistair Moss MD MD kdr Radha Wolff RN RN Radha Pace amLuis Rosas RN RN tr5 Corrections: (The following items were deleted from the chart) 05:04 05:01 GI: Reports lower abdominal pain, nausea, vomiting, tr5 tr5
--- NOTE | 2019-06-10 06:38 | EDPHYS ---
Physician Documentation [facility] Name: Rachel Mares Age: 29 yrs Sex: Female : 1990 Arrival Date: 06/10/2019 Time: 04:42 Bed 20 Private MD: ED Physician Alistair Moss HPI: 06/10 06:31 This 29 yrs old Black Female presents to ER via Ambulatory with complaints of Diarrhea, kdr Nausea, Abdominal Pain. 06:31 The patient presents to the emergency department with nausea, that is mild, diarrhea, kdr that is intermittent, abdominal pain, of the abdomen diffusely, described as achy, crampy, intermittent, vague,\E\. Onset: The symptoms/episode began/occurred gradually, 1 week(s) ago. Possible causes: unknown. The symptoms are aggravated by pressure, food , The symptoms are alleviated by nothing. Associated signs and symptoms: The patient has no apparent associated signs or symptoms. Severity of symptoms: At their worst the symptoms were mild moderate just prior to arrival. The patient has not experienced similar symptoms in the past. The patient has not recently seen a physician, The patient states that she is 16 weeks . 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 - Social history:: Smoking status: Patient/guardian denies using tobacco. - Ebola Screening: : No symptoms or risks identified at this time. ROS: 06:31 Constitutional: Negative for fever, chills, and weight loss, Eyes: Negative for injury, kdr pain, redness, and discharge, ENT: Negative for injury, pain, and discharge, Neck: Negative for injury, pain, and swelling, Cardiovascular: Negative for chest pain, palpitations, and edema, Respiratory: Negative for shortness of breath, cough, wheezing, and pleuritic chest pain, Back: Negative for injury and pain, : Negative for injury, bleeding, discharge, and swelling, MS/Extremity: Negative for injury and deformity, Skin: Negative for injury, rash, and discoloration, Neuro: Negative for headache, weakness, numbness, tingling, and seizure activity. Psych: Negative for depression, anxiety, suicide ideation, homicidal ideation, and hallucinations, Allergy/Immunology: Negative for hives, rash, and allergies, Endocrine: Negative for neck swelling, polydipsia, polyuria, polyphagia, and marked weight changes, Hematologic/Lymphatic: Negative for swollen nodes, abnormal bleeding, and unusual bruising. 06:31 Abdomen/GI: Positive for abdominal pain, nausea, diarrhea, abdominal cramps, Negative for vomiting, black/tarry stool, rectal pain, rectal bleeding, bowel incontinence. Exam: 06:31 Constitutional: This is a well developed, well nourished patient who is awake, alert, kdr and in no acute distress. Head/Face: Normocephalic, atraumatic. Eyes: Pupils equal round and reactive to light, extra-ocular motions intact. Lids and lashes normal. Conjunctiva and sclera are non-icteric and not injected. Cornea within normal limits. Periorbital areas with no swelling, redness, or edema. Neck: Trachea midline, no thyromegaly or masses palpated, and no cervical lymphadenopathy. Supple, full range of motion without nuchal rigidity, or vertebral point tenderness. No Meningismus. Chest/axilla: Normal chest wall appearance and motion. Nontender with no deformity. No lesions are appreciated. Cardiovascular: Regular rate and rhythm with a normal S1 and S2. No gallops, murmurs, or rubs. Normal PMI, no JVD. No pulse deficits. Respiratory: Lungs have equal breath sounds bilaterally, clear to auscultation and percussion. No rales, rhonchi or wheezes noted. No increased work of breathing, no retractions or nasal flaring. Back: No spinal tenderness. No costovertebral tenderness. Full range of motion. Skin: Warm, dry with normal turgor. Normal color with no rashes, no lesions, and no evidence of cellulitis. MS/ Extremity: Pulses equal, no cyanosis. Neurovascular intact. Full, normal range of motion. Neuro: Awake and alert, GCS 15, oriented to person, place, time, and situation. Cranial nerves II-XII grossly intact. Motor strength 5/5 in all extremities. Sensory grossly intact. Cerebellar exam normal. Normal gait. Psych: Awake, alert, with orientation to person, place and time. Behavior, mood, and affect are within normal limits. 06:31 Abdomen/GI: Inspection: obese Bowel sounds: active. Vital Signs: 04:57 BP 104 / 90; Pulse 99; Resp 16 S; Temp 97.5(TE); Pulse Ox 99% on R/A; Weight 136.08 kg bb (R); Height 5 ft. 2 in. (157.48 cm) (R); Pain 10/10; 06:38 BP 97 / 56; Pulse 93; Resp 18; Pulse Ox 96% on R/A; aa1 04:57 Body Mass Index 54.87 (136.08 kg, 157.48 cm) MDM: 06:31 Data reviewed: vital signs, nurses notes, lab test result(s). Counseling: I had a kdr detailed discussion with the patient and/or guardian regarding: the historical points, exam findings, and any diagnostic results supporting the discharge/admit diagnosis, lab results, the need for outpatient follow up. 06:38 Patient medically screened. kdr 06/10 04:51 Order name: Basic Metabolic Panel; Complete Time: 06:27 kdr 06/10 04:51 Order name: CBC with Diff kdr 06/10 04:51 Order name: Creatinine for Radiology; Complete Time: 06:27 kdr 06/10 04:51 Order name: Hepatic Function; Complete Time: 06:27 kdr 06/10 04:51 Order name: Lipase; Complete Time: 06:27 kdr 06/10 05:24 Order name: CBC Smear Scan EDIN 06/10 04:51 Order name: IV Saline Lock; Complete Time: 05:16 kdr 06/10 04:51 Order name: Labs collected and sent; Complete Time: 05:16 kdr Administered Medications: 05:18 Drug: Zofran 4 mg Route: PO; aa1 06:18 Follow up: Response: No adverse reaction; Nausea is decreased aa1 06:39 Not Given (Physician Discretion): NS 0.9% 1000 ml IV at 1 bolus Per protocol; 1000 mL aa1 bolus Disposition: 06/10/19 06:38 Discharged to Home. Impression: Diarrhea, unspecified, Nausea. - Condition is Stable. - Discharge Instructions: Food Choices to Help Relieve Diarrhea, Adult, Nausea and Vomiting, Adult, Diarrhea, Adult, [id number]. - Prescriptions for Flagyl 500 mg Oral Tablet - take 1 tablet by ORAL route every 8 hours for 7 days; 30 tablet. Lomotil 2.5- 0.025 mg Oral Tablet - take 1 tablet by ORAL route every 6 hours As needed; 20 tablet. promethazine 25 mg Oral Tablet - take 1 tablet by ORAL route every 6 hours As needed; 20 tablet. - Medication Reconciliation Form, Thank You Letter, Antibiotic Education form. - Follow up: Private Physician; When: 2 - 3 days; Reason: If symptoms return, Further diagnostic work-up, Recheck today's complaints, Continuance of care, Re-evaluation by your physician. - Problem is an ongoing problem. - Symptoms have improved. Signatures: Dispatcher [employer] EDMS Erika Staley RN RN aa1 Alistair Moss MD MD kdr Radha Wolff RN RN bb Corrections: (The following items were deleted from the chart) 06:48 06:38 06/10/2019 06:38 Discharged to Home. Impression: Diarrhea, unspecified; Nausea. aa1 Condition is Stable. Forms are Medication Reconciliation Form, Thank You Letter, Antibiotic Education, Prescription Opioid Use. Follow up: Private Physician; When: 2 - 3 days; Reason: If symptoms return, Further diagnostic work-up, Recheck today's complaints, Continuance of care, Re-evaluation by your physician. Problem is an ongoing problem. Symptoms have improved. kdr
[2019-06-10 06:54] VITALS: TEMP 97.5
[2019-06-10 06:55] VITALS: BP 97/56; O2SAT 96
== END 2019-06-10 06:48 | disposition home or self-care (01) ==
LOC: ER 04:41
DX: O26.892 Other specified pregnancy related conditions, second trimester (principal); R19.7 Diarrhea, unspecified; Z3A.16 16 weeks gestation of pregnancy
CPT/HCPCS: 36415; 80048; 80076; 83690; 85025; 99284; J7030

== ENCOUNTER 2021-07-03 22:04 | Emergency (ER) | payer OTHER, SELFPAY ==
--- OUTSIDE RECORDS SUMMARY | 2021-07-03 22:09 | XMS REPORT | Continuity of Care Document ---
:1990 Author Organization [facility] t Address [address] [place] [address] Care Team Providers Name Role Phone Sae Celeste DO Attending Clinician Alexis BISHOP Attending Clinician Doctor Unassigned, Name Attending Clinician Unavailable Shawn Zayas Attending Clinician Bishop Fox Jr Attending Clinician Thais Leon Attending Clinician Bernabe Mcdonald Attending Clinician Problems Condition Condition Condition Status Onset Resolution Last Treating Co mments Source Name Details Category Date Date Treatment Clinician Date ABDOMINAL Diagnosis Active 2017-02-08 Memoria PAIN - 3-13 08:44:00 l 00:00: Rashaun ABDOMINAL 00 PAIN - Active 02/01/2017 [facility] Rashaun 8 WKS Diagnosis Active 2017-01-16 [facility] oria PREG/FALL - 11:57:00 l 8 WKS 00:00: [place] PREG/FALL 00 Active 01/16/2017 [place] PELVIC Diagnosis Active 2016-12-17 Mem oria PAIN - 02:20:00 l PELVIC 00:00: [place] PAIN 00 Active [facility]16/[facility] of Past Illness Condition Condition Condition Status Onset Resolution Last Treating Co mments Source Name Details Category Date Date Treatment Clinician Date Acute Problem 2017-02-04 2017-02-04 Yonatan emoria vaginitis 02-01 03:43:11 03:43:11 l Acute 05:00: [place] vaginitis 00 02/01/2017 02/04/2017 [facility] Discharge Problem 2017-01-19 2017-01-19 Memoria Diagnosis: 2 03:50:15 03:50:15 l Accidental 06:00: Tony n fall Discharge 00 Diagnosis: Accidental fall 01/16/2017 01/19/2017 [facility] Discharge Problem 2017-01-19 2017-01-19 Memoria Diagnosis: 01-16 03:50:15 03:50:15 l Abdominal 06:00: Rashaun pain Discharge 00 during Diagnosis: Abdominal in first pain trimester during in first trimester 01/16/2017 01/19/2017 [facility] Discharge Problem 2016-12-20 2016-12-20 Memoria Diagnosis: 12-17 04:12:05 04:12:05 l Abdominal 06:00: Rashaun pain Discharge 00 affecting Diagnosis: Abdominal pain affecting 12/17/2016 12/20/2016 [facility] Discharge Problem 2016-12-20 2016-12-20 Memoria Diagnosis: 12-17 04:12:05 04:12:05 l Acute UTI 06:00: [place] Discharge 00 Diagnosis: Acute UTI 12/17/2016 12/20/2016 [facility] Allergies, Adverse Reactions, Alerts This patient has no known allergies or adverse reactions. Social History Smoking Status Start Date Stop Date Source Social History [facility] Medications Ordered Filled Start Stop Current Ordering Indication Dosage Frequency Signature Comments Components Source Medication Medication Date Date Medication? Clinician (SIG) Name Name Tylenol No 650 mg, Memoria 3-14 Route: PO, l 04:06: Drug form: Rashaun 00 TAB, ONCE, Dosing Weight 131.364, kg, Priority: STAT, Start date: 02/01/17 23:06:00 CDT, Stop date: 02/01/17 23:06:00 CDT Metronidazo Yes 500 mg = 1 Memoria le 500 MG 3-14 tab, PO, l Oral Tablet 03:52: BID, X 7 He rulaann [Flagyl] 00 day, # 14 tab, 0 Refill(s) Acetaminoph No Notes: Do M emoria en 3-13 not exceed l 22:18: 4 gm/day. Rashaun 00 (Same as: Tylenol) Saline No Notes: Memoria Flush 0.9% 3-13 (Same as: l 22:18: BD [place] Posiflush) Saline No Notes: Memoria Flush 0.9% 2-25 preservati l 16:51: ve free. Rashaun Cephalexin Yes 500 mg = 1 M emoria 500 MG Oral 1-26 cap, PO, l Capsule 11:28: BID, X 7 Tony n [Keflex] 00 day, # 14 cap, 0 Refill(s) Sodium No 1,000 mL, Memori a Chloride 1-26 1,000 l 0.154 10:37: ml/hr, Rashaun MEQ/ML 00 Infuse Injectable Over: 1 Solution hr, Route: IV, 1,000, Drug form: INJ, ONCE, Priority: STAT, Dosing Weight 136.364 kg, Start date: 12/17/16 4:37:00 [employer], Duration: 1 doses or times, Stop date: 12/17/16 4:37:00 [employer] Sodium No 1,000 mL, Memori a Chloride -26 1,000 l 0.154 08:27: ml/hr, [place] MEQ/ML 00 Infuse Injectable Over: 1 Solution hr, Route: IV, 1,000, Drug form: INJ, ONCE, Priority: STAT, Dosing Weight 136.364 kg, Start date: 12/17/16 2:27:00 [employer], Duration: 1 doses or times, Stop date: 12/17/16 2:27:00 [employer] Vital Signs Vital Name Observation Time Observation Value Comments Source Respitory Rate 2017-02-02 04:11:00 Sav lloyd [place] Heart Rate 2017-02-02 04:11:00 [facility] [place] Systolic (mm Hg) 2017-02-02 04:11:00 Garcia hoang [place] Diastolic (mm Hg) 2017-02-02 04:11:00 Mem orial [place] Respitory Rate 2017-02-02 04:01:00 Memori al [place] Heart Rate 2017-02-02 04:01:00 [facility] [place] Systolic (mm Hg) 2017-02-02 04:01:00 Garcia rial [place] Diastolic (mm Hg) 2017-02-02 04:01:00 Mem orial [place] Weight 2017-02-01 22:16:00 [facility] [place] Respitory Rate 2017-02-01 22:16:00 Memori al [place] Temperature Oral (F) 2017-02-01 22:16:00 98.6 F [facility] [place] Systolic (mm Hg) 2017-02-01 22:16:00 Garcia rial [place] Diastolic (mm Hg) 2017-02-01 22:16:00 Mem orial [place] Heart Rate 2017-02-01 22:16:00 [facility] [place] Respitory Rate 2017-01-16 18:45:00 Memori al [place] Systolic (mm Hg) 2017-01-16 18:45:00 Garcia rial [place] Diastolic (mm Hg) 2017-01-16 18:45:00 Mem orial [place] Temperature Oral (F) 2017-01-16 18:45:00 97.6 F [facility] [place] Heart Rate 2017-01-16 18:45:00 [facility] [place] Respitory Rate 2017-01-16 16:36:00 Memori al [place] Heart Rate 2017-01-16 16:36:00 [facility] [place] Temperature Oral (F) 2017-01-16 16:36:00 98.0 F [facility] [place] Height 2017-01-16 16:36:00 157.48 cm [facility] [place] BMI Calculated 2017-01-16 16:36:00 Memori al [place] Weight 2017-01-16 16:36:00 [facility] [place] Systolic (mm Hg) 2017-01-16 16:36:00 Garcia rial [place] Diastolic (mm Hg) 2017-01-16 16:36:00 Mem orial [place] Systolic (mm Hg) 2016-12-17 11:46:00 Garcia rial [place] Diastolic (mm Hg) 2016-12-17 11:46:00 Mem orial [place] Respitory Rate 2016-12-17 11:46:00 Memori al [place] Temperature Oral (F) 2016-12-17 11:46:00 98.1 F [facility] [place] Heart Rate 2016-12-17 11:46:00 [facility] [place] Weight 2016-12-17 06:21:00 [facility] [place] BMI Calculated 2016-12-17 06:21:00 Memvarinder al [place] Height 2016-12-17 06:21:00 157.48 cm [facility] [place] Temperature Oral (F) 2016-12-17 06:21:00 98.2 F [facility] [place] Systolic (mm Hg) 2016-12-17 06:21:00 Garcia rial [place] Diastolic (mm Hg) 2016-12-17 06:21:00 Mem orial [place] Heart Rate 2016-12-17 06:21:00 [facility] [place] Respitory Rate 2016-12-17 06:21:00 Memori al [place] Procedures This patient has no known procedures. Encounters Start End Encounter Admission Attending Care Care Encounter Source Date/Time Date/Time Type Type Clinicians Facility Department ID 2021-02-11 2021-02-11 Patient Booker [facility] [id number] 00:00:00 00:00:00 [facility] [id number] [facility] [id number] MOXEE [id number] 2020-12-20 2020-12-20 Emergency Espinoza, [facility] [id number] 07:42:00 12:16:00 [place] [id number] [place] [id number] [place] [id number] 2020-12-20 2020-12-20 Orders Doctor INDIRA [id number] 00:00:00 00:00:00 Only Unassigned, [place] [id number] [place] [facility] [id number] [id number] 2019-12-19 2019-12-19 Office Akinjames ORFRANK [id number] 15:27:31 16:21:12 Visit Genie Escobar 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 [id number] [facility] [id number] MATERNAL [id number] & CHILD [address] [place] [address] 2019-11-28 2019-11-28 Patient Doctor ORFRANK [id number] 00:00:00 00:00:00 Secure Msg Unassigned, 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 [id number] [place] [facility] [id number] MATERNAL [id number] & CHILD [address] [place] [address] 2017-02-01 2017-02-02 Emergency nullFlavo [facility] [id number] Memoria 22:12:00 04:25:00 r Rashaun 02 l [facility] 2017-02-01 2017-02-01 Outpatient Dominique MHPL MHPL [id number] 17:12:00 23:25:00 Maverick Alas 2017-01-16 2017-01-16 Emergency nullFlavo [facility] [id number] Memoria 16:32:00 18:47:00 r Rashaun 01 l [facility] 2017-01-16 2017-01-16 Outpatient TANIA LeonSE MHSE [id number] 10:32:00 12:47:00 Napoleon 01 [facility] 2016-12-17 2016-12-17 Emergency nullFlavo [facility] [id number] Memoria 06:19:00 11:48:00 r Rashaun 00 l [facility] 2016-12-17 2016-12-[address] MHPL [id number] 00:19:00 05:48:00 Bernabe 00 Results Test Description Test Time Test Comments Results Result Sourc e Comments MOLECULAR 2017-02-02 Negative [facility] DIAGNOSTIC 02:57:00 *NA*(02/01/17 [place] 9:57 PM) MOLECULAR 2017-02-02 [facility] DIAGNOSTIC 02:57:00 *NA*(02/01/17 Rashaun 9:57 PM) MOLECULAR 2017-02-02 Negative [facility] DIAGNOSTIC 02:57:00 *NA*(02/01/17 Rashaun 9:57 PM) ENDOCRINOLOGY 2017-02-02 [id number] [facility] 01:01:00 [place] URINE AND STOOL 2017-02-02 Negative [facility] 01:01:00 (02/01/17 8:01 Rashaun PM) URINE AND STOOL 2017-02-02 Negative [facility] 01:01:00 *NA*(02/01/17 Rashaun 8:01 PM) URINE AND STOOL 2017-02-02 Negative [facility] 01:01:00 *NA*(02/01/17 Rashaun 8:01 PM) URINE AND STOOL 2017-02-02 0.2 [facility] 01:01:00 R[place] URINE AND STOOL 2017-02-02 Negative [facility] 01:01:00 (02/01/17 8:01 [place] PM) URINE AND STOOL 2017-02-02 Negative [facility] 01:01:00 (02/01/17 8:01 R[place]un PM) URINE AND STOOL 2017-02-02 Negative [facility] 01:01:00 (02/01/17 8:01 Rashaun PM) URINE AND STOOL 2017-02-02 Negative [facility] 01:01:00 (02/01/17 8:01 [place] PM) URINE AND STOOL 2017-02-02 01:01:00 Test Item Value Reference Range Interpretation Comme nts UA pH (test code = UA pH) 6.0 1 5.0-8.0 [facility] [id number] 01:01:00>=1.030 *ABN*(02/01/17 8:01 PM)[facility] [id number] 01:01:00Clear (02/01/17 8:01 PM) [facility] RMXUT4996-29-60 01:01:00Yellow *NA*(02/01/17 8:01 PM) [facility] SRXFF8405-76-24 23:49:22184Cjysxyqk HermannCHEM PANEL 2017-02-01 23:49:73008Imgirrbs HermannCHEM DGDEJ6270-50-68 23:49:61590Mashwjqx HermannCHEM CWHVX9811-54-35 23:49:0016[facility]ann[facility] UOAMJ6755-51-98 23:49:000.70[facility]ann[facility] ERDIF4441-82-71 23:49:007.9[facility]ann[facility] NUSAD1331-49-15 23:49:68587Hyhydtjd HermannCHEM VCFKM2130-30-69 23:49:0022 [facility] FULTO1315-16-62 23:49:004.3[facility] HermannCHEM PANEL 2017-02-01 23:49:0014.3[facility] XzayzinPWDREKPCXL3241-35-93 23:02:000.8[facility] QdrlbnsJQSBTMYAQO9374-16-23 23:02:003.5[facility] BhzgfnxMTHBNYGPVJ0926-56-16 23:02:000.1[facility] GvoxxiiDDMLJFCGFW8574-69-34 23:02:000.1[facility] [place] HQUSKJAPWE6824-64-91 23:02:003+ *NA*(02/01/17 6:02 PM)[facility]ann[facility]OLOGY 2017-02-01 23:02:001+ *ABN*(02/01/17 6:02 PM)[facility] SisxaivONKNDJWWCP9568-92-41 23:02:00Normal (02/01/17 6:02 PM)[facility] GosjrgjHCOVTVWVAS6712-28-52 23:02:00 62.3[facility] TuxxbwzHMDEGZHPCD4655-78-79 23:02:001.1[facility]annHEMATOLOGY 2017-02-01 23:02:000.5[facility] PcqqhdfDTLQYODPKP1143-12-41 23:02:006.9[facility] LklvbxvOFVGCFBUOC9328-32-83 23:02:0029.2[facility] MkzngucVLDGUUBFDE5775-47-03 23:02:007.5[facility] KysimpeKCNFJZNIUF6977-55-38 23:02:40634Xssfseqm [place] FGZRFSEFRC5588-76-59 23:02:0015.7[facility] QxsrybuOJMVEETRPA1428-05-67 23:02:00 31.4[facility] DbixbatHZSSHNJJXT1080-09-09 23:02:0065.4[facility]ann[facility]MATOLOGY 2017-02-01 23:02:00 Test Item Value Reference Range Interpretation Comments MCH (test code = MCH) 20.5 pg 27.0-31.0 [facility] QeeahdcGKCFWATQJD3496-28-07 23:02:0038.7[facility]annHEMATOLOGY 2017-02-01 23:02:0012.1[facility] UaxrupdSITONSCFAZ1105-92-05 23:02:0012.0[facility] LaapyssYKBFBPUKIS6381-35-80 23:02:005.91[facility] TczywsaCJFOUVXRRZ3305-89-03 23:02:008.0[facility] JgqrtfxUTQFLPLJFQ6925-62-86 17:02:003+ *NA*(2/25/17 11:02 AM)[facility] ZXCGG2752-36-89 17:02:00Negative (01/16/17 11:02 AM) [facility] JCCJB2678-76-00 17:02:00Negative *NA*(01/16/17 11:02 AM)[facility] PWLWQ7628-88-56 17:02:00Negative (01/16/17 11:02 AM) [facility] AHCHE6460-11-10 17:02:00Negative (01/16/17 11:02 AM) [facility] SJETI8758-50-45 17:02:001.001[facility] UJGCV4733-33-66 17:02:00Clear (01/16/17 11:02 AM)[facility] STOOL 2017-01-16 17:02:006.0[facility] QqpgzegXIREQJUKUSRGT6927-78-93 17:02:00Positive *NA*(01/16/17 11:02 AM)[facility] GenguanISSKBWXCIRXOM4326-85-85 17:02:1910598 [facility] OopquohPHZHFZCDAU5195-13-87 17:02:007.8[facility]annHEMATOLOGY 2017-01-16 17:02:0011.9[facility] HxwrwoyFFAHPBWBDY0248-29-83 17:02:0038.2[facility] CzoodliDORGTKYOKY9329-07-19 17:02:0031.1[facility] HwtavgkJDAEGBDJDB9542-81-06 17:02:005.86[facility] DmvmyssIWZOGPWWSM9400-73-74 17:02:0013.9[facility] [place] GELNSBOSRE7681-65-24 17:02:0065.2[facility] HdsvozlHPCETKAUCK0556-78-99 17:02:00 Test Item Value Reference Range Interpretation Comments MCH (test code = MCH) 20.3 pg 27.0-31.0 [facility] VoaednhYZZHNLGJSZ9043-16-45 17:02:40795Xhlgyhck HermannHEMATOLOGY 2017-01-16 17:02:0016.3[facility] YobntgnQWWJKLTJLJ0371-92-93 17:02:0067.8[facility] TrfigyeHAERWKJIYU4764-32-49 17:02:0023.8[facility] QlahxvfLSIYOMMIZG0638-32-65 17:02:001.0[facility] QtwqzkxJXIDOONVYH1009-15-65 17:02:000.4[facility] [place] KLYYAZRZEI9478-68-06 17:02:007.5[facility] GpmvbwaKKNAEYTHTB9032-33-42 17:02:009.5 [facility] XzhmtbhLIOKSKGEES7051-06-94 17:02:003.3[facility]annHEMATOLOGY 2017-01-16 17:02:000.5[facility] IisawujRFYLGAJTYO6614-91-73 17:02:000.1[facility] UwaasmeMSCVOYDOMN5585-22-75 17:02:000.1[facility]ann[facility]LE[facility]ULAR DIAGNOSTIC 2016-12-17 09:12:00Vaginal *NA*(12/17/16 3:12 AM)[facility]ann[facility]LECULAR MYEUFVQJYN4266-10-58 09:12:00Negative *NA*(12/17/16 3:12 AM)[facility] [place] MOLECULAR KYQIKXALTT8943-91-47 09:12:00Negative *NA*(12/17/16 3:12 AM)[facility]ann[facility] ZKEPI5095-14-38 09:01:35589Vtfzzxyw HermannCHEM AQMGG2709-68-35 09:01:0014[facility]annCHEM GVBKA6469-14-89 09:01:007.3[facility] HermannCHEM FQEAU3894-95-69 09:01:008.4[facility] HermannCHEM TJWMG8284-49-22 09:01:0029 [facility]annCHE[facility] DHEVG5106-04-72 09:01:86429Bwvpbrcz HermannCHEM PANEL 2016-12-17 09:01:0060[facility] HermannCHEM KVAJL6449-30-35 09:01:0020[facility] HermannCHEM HEWCP9079-78-28 09:01:003.1[facility] HermannCHEM KQRGP8013-98-27 09:01:000.87[facility] HermannCHEM VYEDC0297-24-94 09:01:0017[facility] HermannCHEM AKEXX6610-23-03 09:01:0095[facility] HermannCHEM PVYNU4205-09-60 09:01:000.2 [facility]annCHE[facility] WHTNY7723-44-50 09:01:003.8[facility] HermannCHEM PANEL 2016-12-17 09:01:77807Ltxoeili HermannCHEM ERDXQ8000-36-38 09:01:000.7[facility] HermannCHEM BYTDP0915-32-71 09:01:0020[facility] HermannCHEM WEAAI1315-92-71 09:01:0011.8[facility] HermannCHEM ADNHE5786-24-60 09:01:004.2[facility] [place] EZTOEZSAGNTXO6799-32-96 09:01:050803Spemhxgo GhvhndgISBTUHSEWK8271-73-37 09:01:000.9[facility] LcxudioIITBCJQWPW4027-25-72 09:01:000.6[facility] [place] KACAGJMICI7467-28-44 09:01:006.8[facility] OraujwbHYNLYVDJZI7193-87-46 09:01:00 34.8[facility] GehfvgqUGWAJOSYOX9868-89-04 09:01:008.2[facility]annHEMATOLOGY 2016-12-17 09:01:000.1[facility] DufphlwKLNZZFHMYT8330-31-48 09:01:000.1[facility] YrftmubRQSTUEUXKM1944-66-21 09:01:003+ *NA*(12/17/16 3:01 AM)[facility] [place] QCEJFIZJYZ0126-17-54 09:01:004.3[facility] YvlrxnhTDTISHETSV3746-15-62 09:01:001.0 [facility] ZiiksvoSJYNQTYTKO2414-13-95 09:01:0055.5[facility] HermannHEMATOLOGY 2016-12-17 09:01:008.2[facility] SkuebbnEXXIWQAZDG7231-98-10 09:01:06589Pxzrqfxi WvfrpfvEETCRFRQTV7516-33-80 09:01:0012.1[facility] DaokxjmTSLYEAAPOD0825-29-66 09:01:005.95[facility] NeppysoTVJEUCYJUA5194-11-19 09:01:0012.2[facility] [place] TYFCIZISDT2423-94-09 09:01:0016.2[facility] QkjsytrRYPQUUOQXA3997-78-06 09:01:00 30.9[facility] JsohlvoWADGDOMPFM7639-48-17 09:01:00 Test Item Value Reference Range Interpretation Comments MCH (test code = MCH) 20.3 pg 27.0-31.0 [facility] IdvjpdwGANKTCRPXU4279-30-25 09:01:0065.8[facility] HermannHEMATOLOGY 2016-12-17 09:01:0039.1[facility] KLAXY2112-86-32 09:01:00None Seen (12/17/16 3:01 AM)[facility] ICDXA2210-70-04 09:01:00Negative (12/17/16 3:01 AM)[facility] SILNN0369-06-99 09:01:00Negative (12/17/16 3:01 AM)[facility] FXYMT9341-57-07 09:01:00Yellow *NA*(12/17/16 3:01 AM)[facility] KMHTY2391-62-07 09:01:00Clear (12/17/16 3:01 AM)[facility] OYGXQ7086-07-81 09:01:000.2[facility] DOEDR4797-32-69 09:01:00Negative (12/17/16 3:01 AM)[facility] VWJGY4806-44-43 09:01:00Negative *NA*(12/17/16 3:01 AM)[facility] CSZQS8268-19-42 09:01:00 Test Item Value Reference Range Interpretation Comments UA pH (test code = UA pH) 6.0 1 5.0-8.0 [facility] BFINE1019-13-64 09:01:00Negative (12/17/16 3:01 AM) [facility] PCWXZ6780-07-77 09:01:00>=1.030 *ABN*(12/17/16 3:01 AM)[facility] DNLRC3186-09-51 09:01:00Trace *ABN*(12/17/16 3:01 AM)[facility] AND QUSYI4932-09-97 09:01:00Negative (12/17/16 3:01 AM) [facility] ABOY0265-64-93 09:01:00Positive *ABN*(12/17/16 3:01 AM) [facility]
[2021-07-04 02:05] LABS: Absolute Lymphocytes (CBC) 3.8 K/uL (0.7-4.9); Basophils % 0.9 % (0-1.3); Hematocrit 38.6 % (36.0-45.0); Lymphocytes % 35.8 % (15.3-44.8); MPV 7.6 fL (7.6-11.3); RBC Red Blood Cell Count 5.88 M/uL (3.86-4.86)
[2021-07-04] MEDS ORDERED: NA CHLORIDE 0.9% 1,000 ML ONE (02:10)
[2021-07-04] MEDS ORDERED: ONDANSETRON 4 MG/2 ML VIAL ONE (02:10)
[2021-07-04 02:26] LABS: ALT/SGPT 21 U/L (12-78); AST/SGOT 15 U/L (15-37); Albumin 3.5 g/dL (3.4-5.0); Alkaline Phosphatase 68 U/L (45-117); BUN Blood Urea Nitrogen 14 mg/dL (7-18); Bicarbonate 29 mmol/L (21-32); Bilirubin Direct < 0.1 mg/dL (0-0.2); Bilirubin Total 0.2 mg/dL (0.2-1.0); Glucose Level 100 mg/dL (74-106); Lipase 80 U/L (73-393); Potassium 3.8 mmol/L (3.5-5.1); Sodium Level 140 mmol/L (136-145)
[2021-07-04 02:49] LABS: Blood Morphology Comment NOTED (NOT SEEN); Platelet Estimate ADEQ; White Blood Cell Scan OK (OK)
[2021-07-04 02:50] LABS: Hypochromasia 1+; Ovalocytes 1+
[2021-07-04 03:11] LABS: Urine Blood Negative (Negative); Urine Glucose Negative (Negative); Urine Protein Negative (Negative); Urine Specific Gravity >=1.030 (1.005-1.030)
[2021-07-04 03:27] LABS: Urine Bacteria 20-50 /HPF (<20)
[2021-07-04] MEDS ORDERED: FAMOTIDINE 20 MG/2 ML VIAL IV ONE (03:33)
--- NOTE | 2021-07-04 04:30 | EDPHYS ---
Physician Documentation [facility] Name: Rachel Mares Age: 31 yrs Sex: Female : 1990 Arrival Date: 07/03/2021 Time: 22:07 Bed DIS11 Private MD: ED Physician Norman Shetty HPI: 07/04 01:25 This 31 yrs old Black Female presents to ER via Ambulatory with complaints of cp Nausea/Vomiting, Diarrhea. 01:25 The patient presents to the emergency department with diarrhea, that is continuous. cp Onset: The symptoms/episode began/occurred 1 week(s) ago. Possible causes: unknown. 01:25 Associated signs and symptoms: Pertinent positives: abdominal pain, nausea, vomiting, cp Pertinent negatives: constipation, dysuria, fever, GI bleeding. Severity of symptoms: in the emergency department the symptoms are unchanged despite home interventions. 01:25 Patient denies any recent use of antibiotics and/or and recent travel. 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 - Social history:: Smoking status: Patient denies any tobacco usage or history of. ROS: 07/04 01:30 Constitutional: Positive for poor PO intake, Negative for body aches, chills, fever. cp Abdomen/GI: Positive for abdominal pain, nausea, vomiting, and diarrhea, anorexia, Negative for constipation, hematemesis, black/tarry stool, rectal bleeding. 01:30 Eyes: Negative for injury, pain, redness, and discharge. cp 01:30 ENT: Negative for ear pain, sore throat, difficulty swallowing, difficulty handling secretions. 01:30 Cardiovascular: Negative for chest pain. 01:30 Respiratory: Negative for cough, shortness of breath, wheezing. 01:30 Back: Negative for injury or acute deformity. 01:30 Skin: Negative for rash. 01:30 Neuro: Negative for altered mental status, headache, weakness. 01:30 All other systems are negative. Exam: 07/03 01:35 Constitutional: The patient appears in no acute distress, alert, awake, non-toxic, well cp developed, well nourished, obese. 01:35 Head/Face: Normocephalic, atraumatic. cp 01:35 Eyes: Periorbital structures: appear normal, Conjunctiva: normal, no exudate, no injection, Sclera: no appreciated abnormality, Lids and lashes: appear normal, bilaterally. 01:35 ENT: External ear(s): are unremarkable, Nose: is normal, Posterior pharynx: Airway: no evidence of obstruction, patent. 01:35 Neck: ROM/movement: is normal, is supple, without pain, no range of motions limitations, no meningismus. 01:35 Chest/axilla: Inspection: normal, Palpation: is normal, no crepitus, no tenderness. 01:35 Cardiovascular: Rate: normal. 01:35 Respiratory: the patient does not display signs of respiratory distress, Respirations: normal, no use of accessory muscles, no retractions, labored breathing, is not present, Breath sounds: are clear throughout, no decreased breath sounds, no stridor, no wheezing. 01:35 Abdomen/GI: Inspection: obese Bowel sounds: active, all quadrants, Palpation: soft, in all quadrants, mild abdominal tenderness, in the right upper quadrant and right lower quadrant, rebound tenderness, is not appreciated, involuntary guarding, is not appreciated. 01:35 Back: CVA tenderness, is absent. Vital Signs: 23:06 BP 139 / 96; Pulse 93; Resp 18; Temp 98.6(O); Pulse Ox 100% on R/A; Weight 136.08 kg lp1 (R); Height 5 ft. 4 in. (162.56 cm); Pain 0/10; 07/04 04:15 BP 129 / 84; Pulse 86; Resp 15; Temp 98.4; Pulse Ox 100% on R/A; ch4 07/03 23:06 Body Mass Index 51.49 (136.08 kg, 162.56 cm) lp1 MDM: 01:00 Patient medically screened. cp 04:29 Data reviewed: vital signs, nurses notes, lab test result(s), radiologic studies, CT cp scan, and as a result, I will discharge patient. 04:29 Counseling: I had a detailed discussion with the patient and/or guardian regarding: the cp historical points, exam findings, and any diagnostic results supporting the discharge/admit diagnosis, lab results, radiology results, to return to the emergency department if symptoms worsen or persist or if there are any questions or concerns that arise at home. Response to treatment: the patient's symptoms have markedly improved after treatment, VSS. Nausea and pain improved. No vomiting observed while monitoring patient in ED. Patient unable to provide stool sample. Will discharge to home for continued monitoring. 07/04 00:49 Order name: SARS-COV-2 RT PCR; Complete Time: 02:23 EDWV 07/04 01:17 Order name: Basic Metabolic Panel; Complete Time: 03:15 07/04 03:15 Interpretation: Normal except: CL 109; CA 8.4. 07/04 01:17 Order name: CBC with Diff; Complete Time: 03:15 07/04 03:15 Interpretation: Normal except: RBC 5.88; MCV 65.7; MCH 20.5; MCHC 31.3; RDW 16.1. 07/04 01:17 Order name: Hepatic Function; Complete Time: 03:15 07/04 03:15 Interpretation: Normal except: GLOB 4.5; A/G 0.8. 07/04 01:17 Order name: Lipase; Complete Time: 03:15 07/04 01:17 Order name: Urine Microscopic Only; Complete Time: 04:01 07/04 04:01 Interpretation: Normal except: URBC 5-10; UBACT 20-50; SQEPI 5-10; URCRY MODERATE. 07/04 02:07 Order name: CBC Smear Scan; Complete Time: 03:15 [facility] 07/04 03:11 Order name: Urine Dipstick-Ancillary; Complete Time: 03:15 [facility] 07/04 01:17 Order name: IV Saline Lock; Complete Time: 02:20 07/04 01:17 Order name: Labs collected and sent; Complete Time: 02:20 07/04 01:17 Order name: Urine Dipstick-Ancillary (obtain specimen); Complete Time: 02:53 07/04 01:17 Order name: Urine Test (obtain specimen); Complete Time: 02:53 07/04 02:26 Order name: CT Abd/Pelvis - IV Contrast Only 07/04 03:28 Order name: Urine Culture EDMS 07/04 04:30 Order name: PO challenge; Complete Time: 04:39 cp Administered Medications: 02:00 Drug: NS 0.9% 1000 ml Route: IV; Rate: 1 bolus; Site: left antecubital; ch4 02:00 Drug: Zofran (Ondansetron) 4 mg Route: IVP; Site: left antecubital; ch4 02:42 Drug: Pepcid (famotidine) 20 mg Route: IVP; Site: left antecubital; ch4 04:39 Drug: LoMOTIL (diphenoxylate-atropine) 2 tabs Route: PO; ch4 Disposition: 07:47 Co-signature as Attending Physician, Norman Shetty MD I agree with the assessment and isabella plan of care. Disposition Summary: 07/04/21 04:29 Discharge Ordered Location: Home cp Problem: new cp Symptoms: have improved cp Condition: Stable cp Diagnosis - Nausea with vomiting, unspecified cp - Diarrhea, unspecified cp Followup: cp - With: Private Physician - When: 1 - 2 days - Reason: Worsening of condition Discharge Instructions: - Discharge Summary Sheet cp - Food Choices to Help Relieve Diarrhea, Adult cp - Diarrhea, Adult cp - Nausea and Vomiting, Adult cp - Form - Excuse from Work, School, or Physical Activity cp Forms: - Medication Reconciliation Form cp - Thank You Letter cp - Antibiotic Education cp - Prescription Opioid Use cp - Work release form bb Prescriptions: - Zofran 4 mg Oral Tablet - take 1 tablet by ORAL route every 12 hours As needed; 20 tablet; Refills: 0, cp Product Selection Permitted - dicyclomine 20 mg Oral Tablet - take 1 tablet by ORAL route 4 times per day; 30 tablet; Refills: 0, Product cp Selection Permitted Signatures: Dispatcher [employer] EDMS Norman Shetty MD MD cha Pena, Laura RN RN lp1 Norman Tatum PA PA Genoveva Lu, RN RN ch4 Corrections: (The following items were deleted from the chart) 07/03 23:55 23:09 CORONAVIRUS+ ordered. EDMS EDMS
--- NOTE | 2021-07-04 04:30 | ER ---
Nurse's Notes [facility] Name: Rachel Mares Age: 31 yrs Sex: Female : 1990 Arrival Date: 07/03/2021 Time: 22:07 Bed DIS11 Private MD: Diagnosis: Nausea with vomiting, unspecified;Diarrhea, unspecified Presentation: 07/03 23:03 Chief complaint: Patient states: Diarrhea x 1 week; nausea, vomiting that began lp1 yesterday; Denies fever, urinary symptoms; Reports hx of similar symptoms with COVID diagnosis, November 2020. Coronavirus screen: diarrhea, nausea, vomiting. Ebola Screen: No symptoms or risks identified at this time. Risk Assessment: Do you want to hurt yourself or someone else? Patient reports no desire to harm self or others. Onset of symptoms was July 03, 2021. 23:03 Method Of Arrival: Ambulatory lp1 23:03 Acuity: VIPIN 3 lp1 23:06 Initial Sepsis Screen: Does the patient meet any 2 criteria? No. Patient's initial lp1 sepsis screen is negative. Does the patient have a suspected source of infection? No. Patient's initial sepsis screen is negative. Triage Assessment: 23:08 General: Appears in no apparent distress. Behavior is calm, cooperative. Neuro: No lp1 deficits noted. GI: Reports diarrhea, nausea, vomiting. Derm: Skin is intact, Skin is dry, Skin is normal. 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 - Social history:: Smoking status: Patient denies any tobacco usage or history of. Screenin:07 Abuse screen: Denies threats or abuse. Denies injuries from another. Nutritional lp1 screening: No deficits noted. Tuberculosis screening: No symptoms or risk factors identified. Fall Risk None identified. Assessment: 07/04 02:20 General: Appears in no apparent distress. comfortable, Behavior is calm, cooperative. ch4 Pain: Denies pain. Neuro: No deficits noted. Cardiovascular: No deficits noted. Respiratory: No deficits noted. GI: Reports diarrhea, vomiting. : No deficits noted. EENT: No deficits noted. Derm: No deficits noted. Musculoskeletal: No deficits noted. 05:11 Reassessment: Patient states feeling better. Patient states symptoms have improved. ch4 Vital Signs: 07/03 23:06 BP 139 / 96; Pulse 93; Resp 18; Temp 98.6(O); Pulse Ox 100% on R/A; Weight 136.08 kg lp1 (R); Height 5 ft. 4 in. (162.56 cm); Pain 0/10; 07/04 04:15 BP 129 / 84; Pulse 86; Resp 15; Temp 98.4; Pulse Ox 100% on R/A; ch4 07/03 23:06 Body Mass Index 51.49 (136.08 kg, 162.56 cm) lp1 ED Course: 07/03 22:07 Patient arrived in ED. es 23:05 Triage completed. lp1 23:05 Arm band placed on right wrist. lp1 07/04 00:58 Norman Tatum PA is PHCP. cp 00:58 Norman Shetty MD is Attending Physician. cp 01:08 Genoveva Jimenez, LOR is Primary Nurse. ch4 02:20 Inserted saline lock: 20 gauge in left antecubital area, using aseptic technique. ch4 03:52 CT Abd/Pelvis - IV Contrast Only In Process Unspecified. EDMS 05:10 IV discontinued, intact, bleeding controlled, No redness/swelling at site. Pressure ch4 dressing applied. Administered Medications: 02:00 Drug: NS 0.9% 1000 ml Route: IV; Rate: 1 bolus; Site: left antecubital; ch4 02:00 Drug: Zofran (Ondansetron) 4 mg Route: IVP; Site: left antecubital; ch4 02:42 Drug: Pepcid (famotidine) 20 mg Route: IVP; Site: left antecubital; ch4 04:39 Drug: LoMOTIL (diphenoxylate-atropine) 2 tabs Route: PO; ch4 Outcome: 04:29 Discharge ordered by MD. cp 05:11 Patient left the ED. ch4 Signatures: Dispatcher [employer] EDMS Adelina Griffiths Laura RN RN lp1 Norman Tatum PA PA cp Herman, Christina, RN RN ch4
[2021-07-04] MEDS ORDERED: DIPHENOX/ATROP SULF 1 TAB PO ONE ×2 (05:04→05:05)
[2021-07-04 05:52] VITALS: O2SAT 100
[2021-07-04 05:57] VITALS: BP 129/84; TEMP 98.4
--- NOTE | 2021-07-04 21:16 | RAD REPORT ---
EXAM DESCRIPTION: CT Abdomen and Pelvis With Intravenous Contrast CLINICAL HISTORY: The patient is 31 years old and is Female; ABD PAIN TECHNIQUE: Axial computed tomography images of the abdomen and pelvis with intravenous contrast. S agittal and coronal reformatted images were created and reviewed. This CT exam was performed using one or more of the following dose reduction techniques: automated exposure control, adjustment of t he mA and/or kV according to patient size, and/or use of iterative reconstruction technique. COMPARISON: No relevant prior studies available. FINDINGS: Lung bases: Unremarkable. No mass. No consolidation. ABDOMEN: Liver: Unremarkable. No mass. Gallbladder and bile ducts: Unremarkable. No calcified stones. No ductal dilation. Pancreas: Unremarkable. No mass. No ductal dilation. Spleen: Unremarkable. No splenomegaly. Adrenals: Unremarkable. No mass. Kidneys and ureters: Unremarkable. No solid mass. No hydronephrosis. Stomach and bowel: Unremarkable. No obstruction. No mucosal thickening. PELVIS: Appendix: No findings to suggest acute appendicitis. Bladder: Unremarkable. No mass. Reproductive: Unremarkable as visualized. ABDOMEN and PELVIS: Intraperitoneal space: Unremarkable. No free air. No significant fluid collection. Bones/joints: No acute fracture. No dislocation. Soft tissues: Unremarkable. Vasculature: Unremarkable. No abdominal aortic aneurysm. Lymph nodes: Unremarkable. No enlarged lymph nodes. IMPRESSION: No acute finding in the abdomen/pelvis. Electronically signed by: Carroll Pastor MD 07/04/2021 4:21 AM CDT Due to temporary technical issues with the PACS/Fluency reporting system, reports are being signed by the in house radiologists without review as a courtesy to insure prompt reporting. The interpreting radiologist is fully responsible for the content of the report.
== END 2021-07-04 05:11 | disposition home or self-care (01) ==
LOC: ER 22:04
DX: R19.7 Diarrhea, unspecified (principal); Z20.822 Contact with and (suspected) exposure to COVID-19
CPT/HCPCS: 36415; 74177; 80048; 80076; 81003; 81015; 83690; 85025; 87086; 87088; 96374; 96375; 99283; J2405; J7030; Q9967; U0003